=== PATIENT | male | born 1955 | race Caucasian/White ===

== ENCOUNTER 2019-05-10 09:47 | Emergency (ER) | payer OTHER ==
[2019-05-10] MEDS ORDERED: ONDANSETRON 4 MG/2 ML VIAL ONE (10:45)
[2019-05-10] MEDS ORDERED: NA CHLORIDE 0.9% 1,000 ML ONE (10:45)
[2019-05-10] MEDS ORDERED: MORPHINE 4 MG/ML SYR ONE ×2 (10:45→12:33)
[2019-05-10 11:15] LABS: Absolute Lymphocytes (CBC) 1.1 K/uL (0.7-4.9); Absolute Neutrophil 8.6 K/uL (1.8-8.0); Basophils % 0.2 % (0-1.3); Eosinophils % 0.9 % (0-4.4); Hematocrit 46.2 % (39.6-49.0); Lymphocytes % 10.4 % (15.3-44.8); MPV 9.4 fL (7.6-11.3); Monocytes % 8.8 % (3.3-12.3); RBC Red Blood Cell Count 5.35 M/uL (4.33-5.43)
[2019-05-10 11:35] LABS: Albumin 4.4 g/dL (3.4-5.0); Bilirubin Direct 0.1 mg/dL (0-0.2); Bilirubin Total 0.7 mg/dL (0.2-1.0); Magnesium 2.1 mg/dL (1.8-2.4); Potassium 3.6 mmol/L (3.5-5.1); Protein, Total 7.9 g/dL (6.4-8.2)
[2019-05-10 11:56] LABS: Urine Bacteria 20-50 /HPF (NONE SEEN); Urine RBC TNTC /HPF (NONE SEEN)
[2019-05-10 11:57] LABS: Urine Culture Reflex Order REFLEXED
[2019-05-10 11:58] LABS: Urine Blood 3+ (NEG); Urine Glucose TRACE (NEG); Urine Protein 2+ (NEG)
--- NOTE | 2019-05-10 12:23 | RAD REPORT ---
EXAM DESCRIPTION: CT - Abdomen Pelvis W Contrast - 05/10/2019 12:01 pm CLINICAL HISTORY: Abdominal pain. COMPARISON: None. TECHNIQUE: Computed axial tomography of the abdomen and pelvis was obtained. 100 cc Isovue-300 is ad ministered intravenously. Oral contrast was given. All CT scans are performed using dose optimization technique as appropriate and may include automated exposure control or mA/KV adjustment according to patient size. FINDINGS: Fatty liver. Hepatic cysts measuring up to several centimeters Spleen, pancreas, and adrenals appear unremarkable. Renal cysts. Multiple, bilateral renal calculi. 6 millimeter calculus within the left renal pelvis. 5 millimeter calculus left ureteral vesicle junction. Hounsfield unit 624. Mild to moderate left hydro nephrosis and hydroureter. Delay in concentration of contrast within the left kidney. The appendix is normal caliber. There is no evidence of diverticulitis Internal radiation beams prostate IMPRESSION: 5 millimeter calculus left ureterovesical junction resulting in mild to moderate left hy dronephrosis. 6 millimeter nonobstructing calculus left renal pelvis
--- NOTE | 2019-05-10 13:01 | EDPHYS ---
Physician Documentation [facility] Name: Winston Castro Age: 63 yrs Sex: Male : 1955 Arrival Date: 05/10/2019 Time: 09:52 Bed 4 Private MD: Pradip Gaxiola H ED Physician Taye Love HPI: 05/10 10:25 This 63 yrs old Male presents to ER via Ambulatory with complaints of cp Abdominal Pain. 10:25 The patient presents with abdominal pain in the left lower quadrant. Onset: The cp symptoms/episode began/occurred this morning. The symptoms do not radiate. Associated signs and symptoms: Pertinent positives: constipation, nausea, Pertinent negatives: blood in stools, chest pain, diarrhea, dysuria, testicular pain, vomiting. The symptoms are described as constant. Modifying factors: the symptoms are aggravated by pressure. Severity of pain: in the emergency department the pain is a 5 / 10. Historical: - Allergies: 10:22 No Known Allergies; ch - Home Meds: 10:22 valsartan oral oral [Active]; Tricor Oral [Active]; Metoprolol Tartrate Oral [Active]; ch tadalafil oral oral [Active]; Lorraine 180 mg Oral tab 1 tab once daily [Active]; aspirin 81 mg Oral chew 1 tab once daily [Active]; amlodipine oral [Active]; Niaspan Oral [Active]; pravastatin oral oral [Active]; - PMHx: 10:22 Hyperlipidemia; Hypertension; Diverticulitis; colon polyps; prostate cancer- treated ch with extreemly high does radiation in 2016; rectal bleeding/intestinal sloughing; - PSHx: 10:22 Tonsillectomy; cardiac cath; neck, ankle, bone spurr in foot, lasik; Cholecystectomy; - Immunization history:: Adult Immunizations up to date. - Social history:: Smoking status: Patient/guardian denies using tobacco, Patient uses alcohol, weekly. - Ebola Screening: : Patient negative for fever greater than or equal to 101.5 degrees Fahrenheit, and additional compatible Ebola Virus Disease symptoms Patient denies exposure to infectious person Patient denies travel to an Ebola-affected area in the 21 days before illness onset No symptoms or risks identified at this time. ROS: 10:30 Constitutional: Negative for body aches, chills, fever, poor PO intake. cp 10:30 Eyes: Negative for injury, pain, redness, and discharge. cp 10:30 ENT: Negative for drainage from ear(s), ear pain, sore throat, difficulty swallowing, difficulty handling secretions. 10:30 Cardiovascular: Negative for chest pain, edema, palpitations. 10:30 Respiratory: Negative for cough, shortness of breath, wheezing. 10:30 Abdomen/GI: Positive for abdominal pain, nausea, constipation, Negative for vomiting, diarrhea, black/tarry stool, rectal bleeding. 10:30 Back: Negative for pain at rest, pain with movement, radiated pain. 10:30 : Positive for small amounts, Negative for burning with urination, testicular pain 10:30 Skin: Negative for cellulitis, rash. 10:30 Neuro: Negative for altered mental status, headache, weakness. 10:30 All other systems are negative. Exam: 10:35 Constitutional: The patient appears in no acute distress, alert, awake, non-toxic, well cp developed, well nourished. 10:35 Head/Face: Normocephalic, atraumatic. cp 10:35 Eyes: Periorbital structures: appear normal, Conjunctiva: normal, no exudate, no injection, Sclera: no appreciated abnormality, Lids and lashes: appear normal, bilaterally. 10:35 ENT: External ear(s): are unremarkable, Nose: is normal, Mouth: is normal, Posterior pharynx: is normal, airway is patent, no erythema, no exudate. 10:35 Chest/axilla: Inspection: normal, Palpation: is normal, no crepitus, no tenderness. 10:35 Cardiovascular: Rate: normal, Rhythm: regular, Edema: is not appreciated, JVD: is not appreciated. 10:35 Respiratory: the patient does not display signs of respiratory distress, Respirations: normal, no use of accessory muscles, no retractions, no splinting, no tachypnea, labored breathing, is not present, Breath sounds: are clear throughout, no decreased breath sounds, no stridor, no wheezing. 10:35 Abdomen/GI: Inspection: abdomen appears normal, Bowel sounds: active, all quadrants, Palpation: soft, in all quadrants, mild abdominal tenderness, in the left lower quadrant, rebound tenderness, is not appreciated, voluntary guarding, is not appreciated, involuntary guarding, is not appreciated. 10:35 Back: pain, is absent, ROM is normal. Vital Signs: 10:22 BP 169 / 90; Pulse 68; Resp 18; Temp 98.5; Pulse Ox 97% on R/A; Weight 111.13 kg; ch Height 5 ft. 11 in. (180.34 cm); Pain 6/10; 11:00 BP 158 / 82; Pulse 60; Resp 16; Temp 98.3; Pulse Ox 99% on R/A; Pain 4/10; ch 12:10 BP 157 / 88; Pulse 82; Resp 16; Temp 99.6; Pulse Ox 97% on R/A; Pain 6/10; ch 13:43 BP 143 / 78; Pulse 74; Resp 18; Pulse Ox 99% on R/A; ph 14:15 BP 131 / 79; Pulse 71; Resp 18; Temp 98.4; Pulse Ox 99% on R/A; Pain 2/10; ph 10:22 Body Mass Index 34.17 (111.13 kg, 180.34 cm) ch MDM: 10:09 Patient medically screened. cp 11:00 Differential diagnosis: bowel obstruction, diverticulitis, non-specific abd pain, cp Ureterolithiasis, urinary tract infection. 13:00 Data reviewed: vital signs, nurses notes, lab test result(s), radiologic studies, CT cp scan. 13:00 Counseling: I had a detailed discussion with the patient and/or guardian regarding: the cp historical points, exam findings, and any diagnostic results supporting the discharge/admit diagnosis, lab results, radiology results, to return to the emergency department if symptoms worsen or persist or if there are any questions or concerns that arise at home. Response to treatment: the patient's symptoms have markedly improved after treatment. 05/10 10:19 Order name: Basic Metabolic Panel cp 05/10 10:19 Order name: CBC with Diff cp 05/10 10:19 Order name: Creatinine for Radiology; Complete Time: 12:28 cp 05/10 10:19 Order name: Hepatic Function; Complete Time: 12:28 cp 05/10 12:28 Interpretation: Normal except: AST 42; ALT 79. cp 05/10 10:19 Order name: Lipase; Complete Time: 12:28 cp 05/10 10:19 Order name: Urine Microscopic Only; Complete Time: 12:28 cp 05/10 12:28 Interpretation: Normal except: UWBC 5-10; URBC TNTC; UBACT 20-50; SQEPI 5-10. cp 05/10 10:19 Order name: CT Abd/Pelvis - PO and IV Contrast; Complete Time: 12:28 cp 05/10 10:19 Order name: Magnesium; Complete Time: 12:28 cp 05/10 10:20 Order name: Basic Metabolic Panel; Complete Time: 12:28 EDMS 05/10 12:28 Interpretation: Normal except: CL 108; GLUC 138; GFR 60. cp 05/10 10:20 Order name: CBC with Automated Diff; Complete Time: 11:22 EDMS 05/10 11:22 Interpretation: Normal except: MCV 86.5; URSULA% 79.7; LYM% 10.4; NEUT A 8.6. cp 05/10 10:44 Order name: Urine Dipstick--Ancillary (enter results); Complete Time: 12:28 ms 05/10 12:00 Order name: Urine Culture EDND 05/10 10:19 Order name: IV Saline Lock; Complete Time: 12:03 cp 05/10 10:19 Order name: Labs collected and sent; Complete Time: 12:03 cp 05/10 10:19 Order name: Bladder Scanner: pre and post void; Complete Time: 12:03 cp 05/10 10:19 Order name: Urine Dipstick-Ancillary (obtain specimen); Complete Time: 10:45 cp 05/10 12:30 Order name: Urine Strainer; Complete Time: 13:01 cp Administered Medications: 11:13 Drug: Zofran 4 mg Route: IVP; Site: left antecubital; hb 12:01 Follow up: Response: No adverse reaction; Marked relief of symptoms ch 11:13 Drug: NS 0.9% 500 ml Route: IV; Rate: bolus; Site: left antecubital; hb 12:00 Follow up: IV Status: Completed infusion; IV Intake: 500ml ch 11:13 Drug: morphine 4 mg Route: IVP; Site: left antecubital; hb 12:00 Follow up: Response: No adverse reaction; Marked relief of symptoms ch 11:50 Drug: NS 0.9% 1000 ml Route: IV; Rate: 125 ml/hr; Site: left antecubital; ch 14:15 Follow up: Response: No adverse reaction; IV Status: Completed infusion ph 13:20 Drug: NS 0.9% 500 ml Route: IV; Rate: bolus; Site: left antecubital; ph 14:09 Follow up: Response: No adverse reaction; IV Status: Completed infusion; IV Intake: ph 500ml 13:20 Drug: Rocephin 1 grams Route: IV; Rate: bolus; Site: left antecubital; ph 13:29 Follow up: Response: No adverse reaction; IV Status: Completed infusion ph 13:25 Drug: Magnesium Sulfate 1 grams Route: IVPB; Infused Over: 30 mins; Site: left ph antecubital; 14:13 Follow up: Response: No adverse reaction; IV Status: Completed infusion ph 13:27 Drug: Flomax 0.4 mg Route: PO; ph 13:30 Follow up: Response: No adverse reaction ph 14:09 Drug: TORadol 30 mg Route: IVP; Site: left antecubital; ph 14:13 Follow up: Response: No adverse reaction ph Disposition: 17:46 Co-signature as Attending Physician, Taye Love MD I agree with the assessment and kdr plan of care. Disposition: 05/10/19 13:01 Discharged to Home. Impression: Calculus of kidney and ureter - left. - Condition is Stable. - Discharge Instructions: Kidney Stones, Dietary Guidelines to Help Prevent Kidney Stones. - Prescriptions for Tylenol- Codeine #3 300-30 mg Oral Tablet - take 2 tablets by ORAL route every 6 hours As needed; 20 tablet. Zofran 4 mg Oral Tablet - take 1 tablet by ORAL route every 12 hours As needed; 20 tablet. Flomax 0.4 mg Oral Capsule, Sust. Release 24 hr - take 1 capsule by ORAL route once daily 1/2 hour following the same meal each day; 5 capsule. Cipro 500 mg Oral Tablet - take 1 tablet by ORAL route every 12 hours for 7 days; 14 tablet. - Medication Reconciliation Form, Thank You Letter, Antibiotic Education, Prescription Opioid Use form. - Follow up: Jan Bonilla MD; When: 2 - 3 days; Reason: pain continues. - Problem is new. - Symptoms have improved. Signatures: Dispatcher [employer] Laine Ott RN RN ch Rittger, Kevin, MD MD [facility] Marisela Serrano RN RN ph Rob Cooper PA PA cp Renita Dubois RN RN Corrections: (The following items were deleted from the chart) 14:17 13:01 05/10/2019 13:01 Discharged to Home. Impression: Calculus of kidney and ureter - ph left. Condition is Stable. Forms are Medication Reconciliation Form, Thank You Letter, Antibiotic Education, Prescription Opioid Use. Follow up: Jan Bonilla; When: 2 - 3 days; Reason: pain continues. Problem is new. Symptoms have improved. cp
--- NOTE | 2019-05-10 13:01 | ER ---
Nurse's Notes [facility] Name: Winston Castro Age: 63 yrs Sex: Male : 1955 Arrival Date: 05/10/2019 Time: 09:52 Bed 4 Private MD: Pradip Gaxiola H Diagnosis: Calculus of kidney and ureter-left Presentation: 05/10 10:14 Presenting complaint: Patient states: pt c/o LLQ abdominal pain since 429 today, ch increasing in pain, with nausea. hx of diverticuli, and prostate cancer. states he frequently has rectal/intestinal lining sloughing and blood from his rectum due to his cancer treatment in 2015. Transition of care: patient was not received from another setting of care. Onset of symptoms was May 10, 2019 at 04:30. Risk Assessment: Do you want to hurt yourself or someone else? Patient reports no desire to harm self or others. Initial Sepsis Screen: Does the patient meet any 2 criteria? No. Patient's initial sepsis screen is negative. Does the patient have a suspected source of infection? No. Patient's initial sepsis screen is negative. Care prior to arrival: Medication(s) given: doculax. 10:14 Method Of Arrival: Ambulatory 10:14 Acuity: ERNST 3 ch Triage Assessment: 10:22 General: Appears in no apparent distress. comfortable, Behavior is calm, cooperative, ch appropriate for age. Pain: Complains of pain in left lower quadrant and pelvis Pain currently is 6 out of 10 on a pain scale. Pain began gradually. Neuro: No deficits noted. Respiratory: Airway is patent Respiratory effort is even, unlabored, Breath sounds are clear bilaterally. Historical: - Allergies: 10:22 No Known Allergies; - Home Meds: 10:22 valsartan oral oral [Active]; Tricor Oral [Active]; Metoprolol Tartrate Oral [Active]; ch tadalafil oral oral [Active]; Lorraine 180 mg Oral tab 1 tab once daily [Active]; aspirin 81 mg Oral chew 1 tab once daily [Active]; amlodipine oral [Active]; Niaspan Oral [Active]; pravastatin oral oral [Active]; - PMHx: 10:22 Hyperlipidemia; Hypertension; Diverticulitis; colon polyps; prostate cancer- treated ch with extreemly high does radiation in 2016; rectal bleeding/intestinal sloughing; - PSHx: 10:22 Tonsillectomy; cardiac cath; neck, ankle, bone spurr in foot, lasik; Cholecystectomy; ch - Immunization history:: Adult Immunizations up to date. - Social history:: Smoking status: Patient/guardian denies using tobacco, Patient uses alcohol, weekly. - Ebola Screening: : Patient negative for fever greater than or equal to 101.5 degrees Fahrenheit, and additional compatible Ebola Virus Disease symptoms Patient denies exposure to infectious person Patient denies travel to an Ebola-affected area in the 21 days before illness onset No symptoms or risks identified at this time. Screenin:20 Abuse screen: Denies threats or abuse. Denies injuries from another. Nutritional ch screening: No deficits noted. Tuberculosis screening: No symptoms or risk factors identified. Fall Risk None identified. Assessment: 10:20 GI: Bowel sounds present X 4 quads. Abd is soft X 4 quads Abdomen is tender to ch palpation in left lower quadrant Reports nausea. : Urine is blood tinged, Reports urgency, urinary frequency. 10:20 Neuro: No deficits noted. Respiratory: Airway is patent Respiratory effort is even, ch unlabored. Derm: Skin is pale. 10:45 Reassessment: Patient appears in no apparent distress at this time. pt finished ch contrast at 1045, notified ct. 11:06 Reassessment: Patient appears in no apparent distress at this time. pt oob to restroom ch to urinate three times. states he feels pressure but cannot tell if he needs to pee or poop. 11:59 Reassessment: Patient appears in no apparent distress at this time. Patient and/or ch family updated on plan of care and expected duration. Pain level reassessed. Patient is alert, oriented x 3, equal unlabored respirations, skin warm/dry/pink. pt transported to ct now. awaiting pt return Patient states feeling better. 12:21 Reassessment: Patient appears in no apparent distress at this time. Patient and/or ch family updated on plan of care and expected duration. Pain level reassessed. Patient is alert, oriented x 3, equal unlabored respirations, skin warm/dry/pink. pt c/o increase in pain, Rob notified, pt medicated per order. awaiting results now. 13:30 Reassessment: Patient appears in no apparent distress at this time. Patient and/or ph family updated on plan of care and expected duration. Pain level reassessed. Patient is alert, oriented x 3, equal unlabored respirations, skin warm/dry/pink. Pt resting comfortably, rates pain 2/10 and denies nausea at this time, d/c pending completion of IV medication. 14:13 Reassessment: Patient appears in no apparent distress at this time. Patient and/or ph family updated on plan of care and expected duration. Pain level reassessed. Patient is alert, oriented x 3, equal unlabored respirations, skin warm/dry/pink. Pt rates pain 1/10 and denies nausea, instructed on use of urine strainer and d/c home w/ SO. Vital Signs: 10:22 BP 169 / 90; Pulse 68; Resp 18; Temp 98.5; Pulse Ox 97% on R/A; Weight 111.13 kg; ch Height 5 ft. 11 in. (180.34 cm); Pain 6/10; 11:00 BP 158 / 82; Pulse 60; Resp 16; Temp 98.3; Pulse Ox 99% on R/A; Pain 4/10; ch 12:10 BP 157 / 88; Pulse 82; Resp 16; Temp 99.6; Pulse Ox 97% on R/A; Pain 6/10; ch 13:43 BP 143 / 78; Pulse 74; Resp 18; Pulse Ox 99% on R/A; ph 14:15 BP 131 / 79; Pulse 71; Resp 18; Temp 98.4; Pulse Ox 99% on R/A; Pain 2/10; ph 10:22 Body Mass Index 34.17 (111.13 kg, 180.34 cm) ED Course: 09:52 Patient arrived in ED. mr 09:52 Pradip Gaxiola DO is Private Physician. mr 10:00 Laine Roberts, JUAN is Primary Nurse. ch 10:09 Rob Cooper PA is PHCP. cp 10:09 Taye Love MD is Attending Physician. cp 10:17 Triage completed. ch 10:20 No provider procedures requiring assistance completed. ch 10:22 Arm band placed on left wrist. Patient placed in an exam room, on a stretcher, on pulse oximetry. 10:30 Patient has correct armband on for positive identification. Placed in gown. Bed in low ch position. Call light in reach. Side rails up X 1. Adult w/ patient. Pulse ox on. NIBP on. 10:30 Bladder scan completed. 58. dh3 10:40 Missed attempt(s): 22 gauge in right upper arm. Bleeding controlled, band aid applied, ch catheter tip intact. 10:43 Urine collected: clean catch specimen, blood tinged. dh3 10:50 Bladder scan completed. 28mL. ch 11:12 Inserted saline lock: 22 gauge in left antecubital area, using aseptic technique. hb 12:03 CT Abd/Pelvis - PO and IV Contrast In Process Unspecified. EDMS 12:03 Basic Metabolic Panel Sent. ch 12:03 CBC with Diff Sent. ch 12:03 CT Abd/Pelvis - PO and IV Contrast Sent. ch 12:04 Urine Culture Sent. ch 13:00 Jan Bonilla MD is Referral Physician. cp 14:17 IV discontinued, intact, bleeding controlled, No redness/swelling at site. Pressure ph dressing applied. Administered Medications: 11:13 Drug: Zofran 4 mg Route: IVP; Site: left antecubital; hb 12:01 Follow up: Response: No adverse reaction; Marked relief of symptoms ch 11:13 Drug: NS 0.9% 500 ml Route: IV; Rate: bolus; Site: left antecubital; hb 12:00 Follow up: IV Status: Completed infusion; IV Intake: 500ml ch 11:13 Drug: morphine 4 mg Route: IVP; Site: left antecubital; hb 12:00 Follow up: Response: No adverse reaction; Marked relief of symptoms ch 11:50 Drug: NS 0.9% 1000 ml Route: IV; Rate: 125 ml/hr; Site: left antecubital; ch 14:15 Follow up: Response: No adverse reaction; IV Status: Completed infusion ph 13:20 Drug: NS 0.9% 500 ml Route: IV; Rate: bolus; Site: left antecubital; ph 14:09 Follow up: Response: No adverse reaction; IV Status: Completed infusion; IV Intake: ph 500ml 13:20 Drug: Rocephin 1 grams Route: IV; Rate: bolus; Site: left antecubital; ph 13:29 Follow up: Response: No adverse reaction; IV Status: Completed infusion ph 13:25 Drug: Magnesium Sulfate 1 grams Route: IVPB; Infused Over: 30 mins; Site: left ph antecubital; 14:13 Follow up: Response: No adverse reaction; IV Status: Completed infusion ph 13:27 Drug: Flomax 0.4 mg Route: PO; ph 13:30 Follow up: Response: No adverse reaction ph 14:09 Drug: TORadol 30 mg Route: IVP; Site: left antecubital; ph 14:13 Follow up: Response: No adverse reaction ph Intake: 12:00 IV: 500ml; Total: 500ml. ch 14:09 IV: 500ml; Total: 1000ml. ph Outcome: 13:01 Discharge ordered by MD. cp 14:16 Discharged to home ambulatory, with significant other. ph 14:16 Condition: good 14:16 Discharge instructions given to patient, significant other, Instructed on discharge instructions, follow up and referral plans. medication usage, urine strainer, Demonstrated understanding of instructions, follow-up care, medications, Prescriptions given X 4. 14:17 Patient left the ED. ph Signatures: Dispatcher [employer] EDLaine Arizmendi RN JUAN Howard, Lindsay Marisela Serrano RN RN ph Page, Corey, Renita Mckinnon cp, RN RN Ericka Springer [facility]
[2019-05-10] MEDS ORDERED: KETOROLAC 30 MG/ML INJ ONE (13:20)
[2019-05-10] MEDS ORDERED: TAMSULOSIN 0.4 MG SR CAP ONE (13:20)
[2019-05-10] MEDS ORDERED: MAGNESIUM SULFATE 1 gm IVPB 1 GM/100 ML BAG IV ONE (13:21)
[2019-05-10] MEDS ORDERED: CEFTRIAXONE/SWI 1gm 1 GM/10 ML SYR ONE (13:21)
[2019-05-10 14:42] VITALS: O2SAT 99
[2019-05-10 14:43] VITALS: BP 131/79; TEMP 98.4
== END 2019-05-10 14:17 | disposition home or self-care (01) ==
LOC: ER 09:47
DX: N20.2 Calculus of kidney with calculus of ureter (principal); I10 Essential (primary) hypertension; E78.5 Hyperlipidemia, unspecified; Z79.82 Long term (current) use of aspirin; Z85.46 Personal history of malignant neoplasm of prostate
CPT/HCPCS: 36415; 74177; 80048; 80076; 81003; 81015; 83690; 83735; 85025; 87086; 87088; 96361; 96365; 96375; 99284; J0696; J2405; J3475; J7030; Q9967

== ENCOUNTER 2020-01-01 06:17 | Day surgery (SDC) | payer OTHER ==
[2020-01-01] MEDS ORDERED: Ringers Lactate 1,000 ML IV ONE (06:38)
[2020-01-01] MEDS ORDERED: propofoL 200 MG/20 ML VIAL IV ONE (07:17)
[2020-01-01] MEDS ORDERED: LIDOCAINE 1% MPF 5 ML VIAL ONE (07:17)
[2020-01-01] MEDS ORDERED: EPINEPHRINE/PF 1 MG/ML AMP ONE (07:31)
[2020-01-01 08:37] VITALS: BP 156/83; TEMP 97.6; O2SAT 95
--- NOTE | 2020-01-01 10:26 | ENDO RPT ---
[address], [address] COLONOSCOPY PROCEDURE REPORT EXAM DATE: 01/01/2020 PATIENT NAME: Winston Castro MR #: [id number] BIRTHDATE: 1955 ATTENDING: Drew Salvador MD STATUS: outpatient CAVING GUIDE: Vida Hewitt, Flaquita Howard RN, Ruben Fernandez CST, and Ysabel Price RN INDICATIONS: The patient is a 64 yr old Male here for a colonoscopy due to unexplained chronic diarrhea, colitis,, and CHANGE IN BOWEL HABITS PROCEDURE PERFORMED: Colonoscopy with biopsy - cold polypectomy MEDICATIONS: Per Anesthesia. ESTIMATED BLOOD LOSS: None CONSENT: The patient understands the risks and benefits of the procedure and understands that these risks include, but are not limited to: sedation, allergic reaction, infection, perforation and/or bleeding. Alternative means of evaluation and treatment include, among others: physical exam, x-rays, and/or surgical intervention. The patient elects to proceed with this endoscopic procedure. DESCRIPTION OF PROCEDURE: During intra-op preparation period all mechanical medical equipment was checked for proper function. Hand hygiene and appropriate measures for infection prevention was taken. Procedure, possible complications, alternatives including, but not limited to possibility of bleeding, perforation, tear, infection, sepsis, need for surgery, need for blood transfusion, were explained to the patient. After the risks, benefits and alternatives of the procedure were thoroughly explained, Informed consent was verified, confirmed and timeout was successfully executed by the treatment team. The patient was placed in the left lateral position. A digital rectal exam was performed and revealed external hemorrhoids. After appropriate level of anesthesia, the scope was passed. The EC-[id number] ([id number]) and [id number] ([id number]) endoscope was introduced through the anus and advanced to the cecum, which was identified by transillumination from the light source, the appendix, and the ileocecal valve. The quality of the prep was fair. The instrument was then slowly withdrawn as the colon was fully examined. Scope withdrawal time was . COLON FINDINGS: Multiple sessile polyps were found less than 0.5 cm in sixe at approximately 65cm and 35cm from anal verge. Retroflexed views revealed no abnormalities. The scope was then completely withdrawn from the patient and the procedure terminated. ADVERSE EVENTS: There were no complications. IMPRESSIONS: 1. Multiple sessile polyps were found; polypectomy was performed in a piecemeal fashion using hot forceps 2. Proctitis 3. Left sided colitis 4. Diverticulosis RECOMMENDATIONS: 1. follow-up: office 1 week(s) 2. await biopsy results 3. no seeds in diet RECALL: for Colonoscopy, pending biopsy results. Drew Salvador MD eSigned: Drew Salvador MD 01/01/2020 10:26 AM cc: Alyssa Gaxiola M.D. CPT CODES: ICD9 CODES: PATIENT NAME: Winston Castro MR#: [id number]
== END 2020-01-01 08:40 | disposition home or self-care (01) ==
LOC: OR 06:17
PROVIDERS: ATTEND Surgery
PROC: 0DBE8ZX Excision of Large Intestine, Via Natural or Artificial Opening Endoscopic, Diagnostic (ICD-10-PCS; principal; 2020-01-01 07:30)
DX: D12.6 Benign neoplasm of colon, unspecified (principal); K52.9 Noninfective gastroenteritis and colitis, unspecified; K57.90 Diverticulosis of intestine, part unspecified, without perforation or abscess without bleeding; K62.89 Other specified diseases of anus and rectum; I10 Essential (primary) hypertension; G47.33 Obstructive sleep apnea (adult) (pediatric); E78.00 Pure hypercholesterolemia, unspecified; Z85.46 Personal history of malignant neoplasm of prostate; Z90.49 Acquired absence of other specified parts of digestive tract; Z80.8 Family history of malignant neoplasm of other organs or systems; Z82.49 Family history of ischemic heart disease and other diseases of the circulatory system
CPT/HCPCS: 45384; 88305; J2704; J7120; J0171

== ENCOUNTER 2021-05-27 11:08 | Emergency (ER) | payer OTHER ==
[2021-05-27 12:08] LABS: Absolute Lymphocytes (CBC) 1.6 K/uL (0.7-4.9); Basophils % 0.6 % (0-1.3); Hematocrit 40.2 % (39.6-49.0); Lymphocytes % 18.3 % (15.3-44.8); MPV 8.8 fL (7.6-11.3); RBC Red Blood Cell Count 4.68 M/uL (4.33-5.43)
[2021-05-27] MEDS ORDERED: NA CHLORIDE 0.9% 1,000 ML ONE (12:11)
[2021-05-27] MEDS ORDERED: ONDANSETRON 4 MG/2 ML VIAL ONE (12:11)
[2021-05-27] MEDS ORDERED: TAMSULOSIN 0.4 MG SR CAP ONE (12:11)
[2021-05-27] MEDS ORDERED: MORPHINE 4 MG/ML SYR ONE (12:11)
--- NOTE | 2021-05-27 12:12 | RAD REPORT ---
EXAM DESCRIPTION: CT - Stone Protocol - 05/27/2021 12:02 pm CLINICAL HISTORY: Flank pain. right flank pain COMPARISON: Abdomen Pelvis W Contrast dated 05/10/2019 TECHNIQUE: Axial images were obtained without oral or IV contrast. Lack of contrast limits solid org an and vascular assessment. The [id number] spans the entirety of the system partially obscuring uppermost abdomen and lung bases. Coronal reformatted images were obtained and reviewed. All CT scans are performed using dose optimization technique as appropriate and may include automated exposure control or mA/KV adjustment according to patient size. FINDINGS: The lower lung koenig are clear. Multiple low-density liver lesions are present likely cysts. A fatty liver pattern is seen. Cholecyst ectomy clips are present.The spleen is normal in size. The pancreas and adrenal glands are normal. No pathologic lymphadenopathy in the abdomen or pelvis. Bilateral nephrolithiasis is present, largest on the left in the posterior midpole calyx measuring 12 mm. There is 4 cm cyst noted anterior aspect right kidney. Mild right-sided hydronephrosis is present with a 5 mm stone at the right UVJ. Mild left-sided hydron ephrosis is present with 8 mm stone in the proximal left ureter. No bowel obstruction, free air, free fluid or abscess. The appendix is not identified as a discrete s tructure, however, no secondary findings of appendicitis are identified. Sigmoid diverticulosis witho ut diverticulitis. No significant bony abnormality. IMPRESSION: 5 mm calculus is present at the right UVJ resulting in mild right hydronephrosis. 8 mm calculus is present proximal left ureter resulting in mild left hydronephrosis. Bilateral caliceal nephrolithiasis is present.
[2021-05-27 12:23] LABS: Albumin 3.7 g/dL (3.4-5.0); Bilirubin Direct 0.1 mg/dL (0-0.2); Bilirubin Total 0.4 mg/dL (0.2-1.0); Protein, Total 7.3 g/dL (6.4-8.2)
[2021-05-27 12:34] LABS: Urine Blood 3+ (Negative); Urine Glucose Negative (Negative); Urine Protein 1+ (Negative); Urine Specific Gravity 1.025 (1.005-1.030)
--- NOTE | 2021-05-27 14:09 | EDPHYS ---
Physician Documentation [facility] Name: Winston Castro Age: 65 yrs Sex: Male : 1955 Arrival Date: 05/27/2021 Time: 11:09 Bed 2 Private MD: Pradip Gaxiola H ED Physician Rob Ackerman HPI: 05/27 11:38 This 65 yrs old Male presents to ER via Ambulatory with complaints of Flank jmm Pain, Abdominal Pain - RLQ. 11:38 The patient complains of pain in the right flank. Onset: The symptoms/episode jmm began/occurred acutely, this morning. Modifying factors: The symptoms are alleviated by nothing. the symptoms are aggravated by nothing. This is a 65 year old male with a history of hlp, htn, that presents to the ED with complaints of right flank pain and inability to urinate beginning today. Denies fever, vomiting, diarrhea. . Historical: - Allergies: 11:23 No Known Allergies; ph - PMHx: 11:23 Colon Polyps; Diverticulitis; Hyperlipidemia; Hypertension; prostate cancer- treated ph with extreemly high does radiation in 2016; rectal bleeding/intestinal sloughing; - Immunization history:: Client reports receiving the 2nd dose of the Covid vaccine. - Social history:: Smoking status: Patient denies any tobacco usage or history of. ROS: 11:38 Constitutional: Negative for fever, chills, and weight loss, Cardiovascular: Negative jmm for chest pain, palpitations, and edema, Respiratory: Negative for shortness of breath, cough, wheezing, and pleuritic chest pain. 11:38 Abdomen/GI: Positive for abdominal pain. 11:38 Back: Positive for flank pain, on the right. 11:38 All other systems are negative. Exam: 11:38 Constitutional: This is a well developed, well nourished patient who is awake, alert, jmm and in no acute distress. Head/Face: atraumatic. Eyes: EOMI, no conjunctival erythema appreciated ENT: Moist Mucus Membranes Neck: Trachea midline, Supple Chest/axilla: Normal chest wall appearance and motion. Cardiovascular: Regular rate and rhythm. No edema appreciated Respiratory: Normal respirations, no respiratory distress appreciated Abdomen/GI: Non distended, soft 11:38 MS/ Extremity: Moves all extremities, no obvious deformities appreciated, no edema noted to the lower extremities Neuro: Awake and alert, normal gait Psych: Behavior is normal, Mood is normal, Patient is cooperative and pleasant 11:38 Back: CVA tenderness, that is moderate, is noted on the right. Vital Signs: 11:21 BP 165 / 93; Pulse 70; Resp 18; Temp 97.2; Pulse Ox 97% on R/A; Weight 113.4 kg; Height ph 5 ft. 11 in. (180.34 cm); Pain 8/10; 12:31 BP 160 / 91; Pulse 81; Resp 17; Pulse Ox 97% on R/A; tw2 13:00 BP 141 / 82; Pulse 77; Resp 20; Pulse Ox 97% on R/A; kg 13:30 BP 147 / 77; Pulse 75; Resp 18; Pulse Ox 96% on R/A; kg 14:00 BP 152 / 88; Pulse 79; Resp 20; Pulse Ox 96% ; kg 14:30 BP 136 / 68; Pulse 60; Resp 20; Pulse Ox 97% on R/A; kg 15:00 BP 143 / 87; Pulse 60; Resp 20; Pulse Ox 97% ; kg 15:30 BP 133 / 89; Pulse 78; Resp 20; Pulse Ox 96% on R/A; kg 11:21 Body Mass Index 34.87 (113.40 kg, 180.34 cm) ph MDM: 11:38 Patient medically screened. [facility] 12:35 Data reviewed: vital signs, nurses notes. Counseling: I had a detailed discussion with [facility] the patient and/or guardian regarding: the historical points, exam findings, and any diagnostic results supporting the discharge/admit diagnosis, lab results, radiology results. ED course: Family/patient has a preference for [facility]. . 13:50 ED course: I discussed the patient with Dr. Bansal whom accepted the patient to [facility] 05/27 11:38 Order name: Basic Metabolic Panel; Complete Time: 12:23 [facility] 05/27 11:38 Order name: CBC with Diff; Complete Time: 12:09 [facility] 05/27 11:38 Order name: Hepatic Function; Complete Time: 12:23 [facility] 05/27 11:38 Order name: Lipase; Complete Time: 12:23 [facility] 05/27 12:34 Order name: Urine Dipstick-Ancillary; Complete Time: 12:34 [facility]LA 05/27 11:38 Order name: IV Saline Lock; Complete Time: 12:35 [facility] 05/27 11:38 Order name: Labs collected and sent; Complete Time: 12:35 [facility] 05/27 11:41 Order name: CT Stone Protocol; Complete Time: 12:13 [facility] 05/27 15:38 Order name: SARS-COV-2 RT PCR; Complete Time: 15:56 [facility] 05/27 11:38 Order name: Urine Dipstick-Ancillary (obtain specimen); Complete Time: 12:35 [facility] 05/27 11:46 Order name: Morgan; Complete Time: 12:35 [facility] 05/27 13:49 Order name: NPO [facility] Administered Medications: 12:20 Drug: NS 0.9% 1000 ml Route: IV; Rate: 1 bolus; Site: left antecubital; kg 16:08 Follow up: IV Status: Completed infusion; IV Intake: 1000ml kg 12:20 Drug: Flomax (tamsulosin) 0.4 mg Route: PO; kg 16:08 Follow up: Response: No adverse reaction; Pain is decreased kg 12:20 Drug: Zofran (Ondansetron) 4 mg Route: IVP; Site: left antecubital; kg 16:08 Follow up: Response: No adverse reaction kg 12:34 Drug: morphine 4 mg Route: IVP; Site: left antecubital; kg 16:08 Follow up: Response: No adverse reaction; Pain is decreased kg Disposition: 05/28 07:32 Co-signature as Attending Physician, Rob Ackerman MD I agree with the assessment and doug plan of care. Disposition Summary: 05/27/21 14:08 Transfer Ordered Transfer Location: [facility] Reason: Higher level of care jmm Condition: Stable jmm Problem: new jmm Symptoms: are unchanged jm Accepting Physician: Dr. Bansal(05/27/21 16:21) tw2 Diagnosis - Calculus of ureter jmm - Other acute kidney failure jmm Forms: - Medication Reconciliation Form jmm - SBAR form jmm Signatures: Dispatcher [employer] Rob Carl MD MD cha Mickail, Joel, PA PA jm Marisela Serrano RN RN Tamara Lopez RN RN tw2 Jad, Nathaly, RN RN kg Corrections: (The following items were deleted from the chart) 05/27 14:46 14:08 CORONAVIRUS+MariannKRISTIEZ auprva. EDMS EDMS 16:21 14:08 Dr. Nimisha chambers tw2
--- NOTE | 2021-05-27 14:09 | ER ---
Nurse's Notes [facility] Name: Winston Castro Age: 65 yrs Sex: Male : 1955 Arrival Date: 05/27/2021 Time: 11:09 Bed 2 Private MD: Pradip Gaxiola H Diagnosis: Calculus of ureter;Other acute kidney failure Presentation: 05/27 11:21 Chief complaint: Patient states: Difficulty urinating that started this morning, states ph that "only a little comes out and when it does it burger." Also reports R sided flank pain and nausea. Coronavirus screen: Client denies travel out of the [place] in the last 14 days. At this time, the client does not indicate any symptoms associated with coronavirus-19. Ebola Screen: No symptoms or risks identified at this time. Initial Sepsis Screen: Does the patient meet any 2 criteria? No. Patient's initial sepsis screen is negative. Does the patient have a suspected source of infection? No. Patient's initial sepsis screen is negative. Risk Assessment: Do you want to hurt yourself or someone else? Patient reports no desire to harm self or others. Onset of symptoms was May 27, 2021. 11:21 Method Of Arrival: Ambulatory ph 11:21 Acuity: ERNST 3 ph Triage Assessment: 12:37 General: Appears uncomfortable, Behavior is calm, cooperative, appropriate for age, kg quiet. Pain: Complains of pain in right lower quadrant Pain does not radiate. Pain currently is 6 out of 10 on a pain scale. at worst was 8 out of 10 on a pain scale. level that patient reports is acceptable is 3 out of 10 on a pain scale. Pain began This AM. EENT: No deficits noted. Neuro: No deficits noted. Cardiovascular: No deficits noted. Respiratory: No deficits noted. GI: Abdomen is tender to palpation in right lower quadrant. : Reports inability to void, since this AM. Derm: No deficits noted. Musculoskeletal: No deficits noted. Historical: - Allergies: 11:23 No Known Allergies; ph - PMHx: 11:23 Colon Polyps; Diverticulitis; Hyperlipidemia; Hypertension; prostate cancer- treated ph with extreemly high does radiation in 2016; rectal bleeding/intestinal sloughing; - Immunization history:: Client reports receiving the 2nd dose of the Covid vaccine. - Social history:: Smoking status: Patient denies any tobacco usage or history of. Screenin:30 Abuse screen: Denies threats or abuse. Nutritional screening: No deficits noted. tw2 Tuberculosis screening: No symptoms or risk factors identified. Fall Risk None identified. Assessment: 12:32 Reassessment: Patient appears in no apparent distress at this time. No changes from tw2 previously documented assessment. Patient and/or family updated on plan of care and expected duration. Pain level reassessed. Patient is alert, oriented x 3, equal unlabored respirations, skin warm/dry/pink. 12:39 GI: Abdomen is round Bowel sounds present X 4 quads. kg 13:40 Reassessment: initated transfer to [facility] per pt request. iw 16:06 Reassessment: Report given to [facility]. kg Vital Signs: 11:21 BP 165 / 93; Pulse 70; Resp 18; Temp 97.2; Pulse Ox 97% on R/A; Weight 113.4 kg; Height ph 5 ft. 11 in. (180.34 cm); Pain 8/10; 12:31 BP 160 / 91; Pulse 81; Resp 17; Pulse Ox 97% on R/A; tw2 13:00 BP 141 / 82; Pulse 77; Resp 20; Pulse Ox 97% on R/A; kg 13:30 BP 147 / 77; Pulse 75; Resp 18; Pulse Ox 96% on R/A; kg 14:00 BP 152 / 88; Pulse 79; Resp 20; Pulse Ox 96% ; kg 14:30 BP 136 / 68; Pulse 60; Resp 20; Pulse Ox 97% on R/A; kg 15:00 BP 143 / 87; Pulse 60; Resp 20; Pulse Ox 97% ; kg 15:30 BP 133 / 89; Pulse 78; Resp 20; Pulse Ox 96% on R/A; kg 11:21 Body Mass Index 34.87 (113.40 kg, 180.34 cm) ph ED Course: 11:09 Patient arrived in ED. am2 11:09 Pradip Gaxiola DO is Private Physician. am2 11:17 Ayo Moyer PA is PHCP. [facility] 11:17 Rob Ackerman MD is Attending Physician. [facility] 11:23 Triage completed. ph 11:23 Arm band placed on Patient placed in an exam room. ph 11:24 Bed in low position. Call light in reach. Adult w/ patient. Pulse ox on. NIBP on. tw2 11:[address], RN is Primary Nurse. kg 12:02 CT Stone Protocol In Process Unspecified. EDMS 12:36 Morgan cath inserted, using sterile technique, 16 Fr., by ar, balloon inflated, to kg gravity drainage, urine specimen collected. Coude placed. 12:40 1240 CALLED TO SET UP [facility]. em1 16:06 No provider procedures requiring assistance completed. Converted IV to saline lock on kg left antecubital area. Administered Medications: 12:20 Drug: NS 0.9% 1000 ml Route: IV; Rate: 1 bolus; Site: left antecubital; kg 16:08 Follow up: IV Status: Completed infusion; IV Intake: 1000ml kg 12:20 Drug: Flomax (tamsulosin) 0.4 mg Route: PO; kg 16:08 Follow up: Response: No adverse reaction; Pain is decreased kg 12:20 Drug: Zofran (Ondansetron) 4 mg Route: IVP; Site: left antecubital; kg 16:08 Follow up: Response: No adverse reaction kg 12:34 Drug: morphine 4 mg Route: IVP; Site: left antecubital; kg 16:08 Follow up: Response: No adverse reaction; Pain is decreased kg Intake: 16:08 IV: 1000ml; Total: 1000ml. kg Output: 16:01 Urine: 625ml (Morgan); Total: 625ml. kg Outcome: 14:08 ER care complete, transfer ordered by . reyes 16:07 Transferred by ground EMS to [facility]. kg 16:07 Condition: stable 16:07 Instructed on the need for transfer, Demonstrated understanding of instructions. 16:21 Patient left the ED. tw2 Signatures: Dispatcher [employer] EDMS Ayo Moyer PA PA jmm Williams, Irene, RN Lee Caraballo em1 Marisela Serrano RN RN Tamara Lopez RN JUAN tw2 Brenda lFores am[address] RN RN kg
[2021-05-27 16:26] VITALS: TEMP 97.2
[2021-05-27 16:36] VITALS: BP 133/89; O2SAT 96
== END 2021-05-27 16:21 | disposition short-term general hospital (02) ==
LOC: ER 11:08
DX: N20.1 Calculus of ureter (principal); N19 Unspecified kidney failure; I10 Essential (primary) hypertension; Z20.822 Contact with and (suspected) exposure to COVID-19
CPT/HCPCS: 96361; 85025; 80048; 36415; 80076; 81003; 83690; 76377; 74176; 51702; 96375; 96374; 99285; U0003; J7030; J2405

== ENCOUNTER 2021-06-02 05:26 | Emergency (ER) | payer OTHER ==
[2021-06-02 07:00] LABS: Absolute Lymphocytes (CBC) 1.2 K/uL (0.7-4.9); Basophils % 0.4 % (0-1.3); Hematocrit 40.8 % (39.6-49.0); Lymphocytes % 10.4 % (15.3-44.8); MPV 8.8 fL (7.6-11.3); RBC Red Blood Cell Count 4.81 M/uL (4.33-5.43)
[2021-06-02] MEDS ORDERED: CEFTRIAXONE/SWI 1gm 2 GM/20 ML SYR ONE (07:16)
[2021-06-02] MEDS ORDERED: NA CHLORIDE 0.9% 1,000 ML ONE (07:16)
[2021-06-02 07:20] LABS: ALT/SGPT 26 U/L (12-78); AST/SGOT 9 U/L (15-37); Albumin 3.5 g/dL (3.4-5.0); Alkaline Phosphatase 55 U/L (45-117); BUN Blood Urea Nitrogen 23 mg/dL (7-18); Bicarbonate 26 mmol/L (21-32); Bilirubin Direct 0.2 mg/dL (0-0.2); Bilirubin Total 1.1 mg/dL (0.2-1.0); Glucose Level 134 mg/dL (74-106); Magnesium 1.8 mg/dL (1.8-2.4); NT PRO-BNP 80 pg/mL (<125); Potassium 3.3 mmol/L (3.5-5.1); Protein, Total 7.5 g/dL (6.4-8.2); Sodium Level 140 mmol/L (136-145); Troponin (Emerg Dept Use Only) < 0.02 ng/mL (0.0-0.045)
--- NOTE | 2021-06-02 07:47 | RAD REPORT ---
EXAM DESCRIPTION: RAD - Chest Single View - 06/02/2021 7:01 am CLINICAL HISTORY: Chills palpitation COMPARISON: None. TECHNIQUE: AP portable chest image was obtained . FINDINGS: Lungs are clear. Heart and vasculature are normal. No measurable pleural effusion and no p neumothorax. No gross bony abnormality seen. IMPRESSION: No acute cardiopulmonary process.
[2021-06-02 07:56] LABS: Protime INR 1.11
[2021-06-02 08:27] LABS: Urine Blood 3+ (Negative); Urine Glucose Negative (Negative); Urine Protein 2+ (Negative); Urine Specific Gravity 1.015 (1.005-1.030); Urine pH 6.5 (5.0-7.0)
--- NOTE | 2021-06-02 09:29 | RAD REPORT ---
EXAM DESCRIPTION: CTAbdomen Pelvis W Contrast - 06/02/2021 9:04 am CLINICAL HISTORY: Abdominal pain. flank pain, recent surgical procedure COMPARISON: Abdomen Pelvis W Contrast dated 05/10/2019; Stone Protocol dated 05/27/2021 TECHNIQUE: Biphasic CT imaging of the abdomen and pelvis was performed with 100 ml non-ionic IV cont rast. All CT scans are performed using dose optimization technique as appropriate and may include automated exposure control or mA/KV adjustment according to patient size. FINDINGS: The lung bases are clear. Multiple benign hypoattenuating lesions in the liver which are unchanged since 05/10/2019. Cholecyste ctomy. The adrenal glands and pancreas are unremarkable. The spleen is unremarkable. Right ureteral s tent in place with continued mild right-sided hydronephrosis. Left ureteral stent without hydronephro sis. Bilateral nephrolithiasis. The previously noted right UVJ stone is no longer identified. Bladder wall thickening is noted, likely chronic. Mild prostatomegaly. The left ureteral stone is no longer identified. Renal lesions again noted which likely represent cysts. No bowel obstruction, free air, free fluid or abscess. No evidence of significant lymphadenopathy. No suspicious bony findings. Disc height loss at L5-S1. IMPRESSION: Bilateral ureteral stents in place. Previously seen ureteral calculi are no longer ident ified. Persistent mild right-sided hydronephrosis despite the presence of the stent. .
--- NOTE | 2021-06-02 09:36 | EDPHYS ---
Physician Documentation [facility] Name: Winston Castro Age: 65 yrs Sex: Male : 1955 Arrival Date: 06/02/2021 Time: 05:29 Bed 14 Private MD: ED Physician Lobo Pina HPI: 06/02 06:44 This 65 yrs old Male presents to ER via Ambulatory with complaints of jmm Palpitations. 06:44 The patient presents with a history of heart racing. Onset: The symptoms/episode jmm began/occurred gradually, 1 day(s) ago. Modifying factors: The symptoms are aggravated by nothing. The symptoms are alleviated by nothing. Associated signs and symptoms: Pertinent positives:. This is a 65 year old male with a history of htn, prostate concer, hlp, that presents to the ED 1 week s/p bilateral obstructive ureteral stones. States he has had a racing heartbeat with increased blood pressure. Patient is concerned it may be due to oxybutynin . Denies vomiting. has some mild left flank pain. Denies chest pain. Historical: - Allergies: 05:55 No Known Allergies; jb4 - Home Meds: 05:55 Lorraine 180 mg Oral tab 1 tab once daily [Active]; amlodipine oral [Active]; aspirin 81 jb4 mg Oral chew 1 tab once daily [Active]; Metoprolol Tartrate Oral [Active]; Niaspan Oral [Active]; pravastatin Oral [Active]; tadalafil Oral [Active]; Tricor Oral [Active]; valsartan Oral [Active]; - PMHx: 05:55 Colon Polyps; Diverticulitis; Hyperlipidemia; Hypertension; prostate cancer- treated jb4 with extreemly high does radiation in 2016; rectal bleeding/intestinal sloughing; - PSHx: 05:55 Lithotripsy; jb4 - Immunization history:: Adult Immunizations up to date. - Social history:: Smoking status: . ROS: 06:46 Constitutional: Positive for chills. jmm 06:46 Cardiovascular: Positive for palpitations. 06:46 All other systems are negative. Exam: 06:46 Constitutional: This is a well developed, well nourished patient who is awake, alert, jmm and in no acute distress. Head/Face: atraumatic. Eyes: EOMI, no conjunctival erythema appreciated ENT: Moist Mucus Membranes Neck: Trachea midline, Supple Chest/axilla: Normal chest wall appearance and motion. Cardiovascular: Regular rate and rhythm. No edema appreciated Respiratory: Normal respirations, no respiratory distress appreciated Abdomen/GI: Non distended, soft Back: Normal ROM Skin: General appearance color normal MS/ Extremity: Moves all extremities, no obvious deformities appreciated, no edema noted to the lower extremities Neuro: Awake and alert, normal gait Psych: Behavior is normal, Mood is normal, Patient is cooperative and pleasant Vital Signs: 05:53 BP 166 / 85; Pulse 114; Resp 20; Temp 99.1(O); Pulse Ox 98% on R/A; Weight 113.4 kg jb4 (R); Height 5 ft. 11 in. (180.34 cm) (R); Pain 0/10; 10:03 BP 151 / 86; Pulse 112; Resp 17; Pulse Ox 98% on R/A; tw2 05:53 Body Mass Index 34.87 (113.40 kg, 180.34 cm) jb4 MDM: 06:42 Patient medically screened. [facility] 09:34 Data reviewed: vital signs, nurses notes. Counseling: I had a detailed discussion with [facility] the patient and/or guardian regarding: the historical points, exam findings, and any diagnostic results supporting the discharge/admit diagnosis, lab results, radiology results, the need for outpatient follow up, to return to the emergency department if symptoms worsen or persist or if there are any questions or concerns that arise at home. ED course: Patient is alert and non toxic in appearance in the ED. Patient advised to follow up with urology for reevaluation. patient is otherwise given strict return precautions. patient understood and agrees with the plan of care. . 06/02 06:43 Order name: Basic Metabolic Panel; Complete Time: 07:48 [facility] 06/02 06:43 Order name: CBC with Diff; Complete Time: 07:48 [facility] 06/02 06:43 Order name: LFT's; Complete Time: 07:48 [facility] 06/02 06:43 Order name: Magnesium; Complete Time: 07:48 [facility] 06/02 06:43 Order name: NT PRO-BNP; Complete Time: 07:48 [facility] 06/02 06:43 Order name: PT-INR; Complete Time: 07:59 [facility] 06/02 06:43 Order name: Troponin (emerg Dept Use Only); Complete Time: 07:48 [facility] 06/02 06:43 Order name: XRAY Chest (1 view); Complete Time: 07:48 [facility] 06/02 06:43 Order name: Procalcitonin; Complete Time: 07:59 [facility] 06/02 06:43 Order name: Lactate; Complete Time: 07:48 [facility] 06/02 06:43 Order name: Blood Culture Adult (2) [facility] 06/02 06:43 Order name: Urine Culture [facility] 06/02 08:27 Order name: Urine Dipstick-Ancillary; Complete Time: 08:30 [facility] 07 08:31 Order name: CT Abd/Pelvis - IV Contrast Only; Complete Time: 09:32 [facility] 06/02 06:43 Order name: EKG; Complete Time: 06:44 [facility] 06/02 06:43 Order name: Cardiac monitoring; Complete Time: 07:06 [facility] 06/02 06:43 Order name: EKG - Nurse/Tech; Complete Time: 08:31 [facility] 06/02 06:43 Order name: IV Saline Lock; Complete Time: 07:06 [facility] 06/02 06:43 Order name: Labs collected and sent; Complete Time: 07:06 [facility] 06/02 06:43 Order name: O2 Per Protocol; Complete Time: 07:06 [facility] 06/02 06:43 Order name: O2 Sat Monitoring; Complete Time: 07:06 [facility] 06/02 06:43 Order name: Urine Dipstick-Ancillary (obtain specimen); Complete Time: 08:30 [facility] Administered Medications: No medications were administered Disposition Summary: 06/02/21 09:35 Discharge Ordered Location: Home [facility] Condition: Stable [facility] Diagnosis - Palpitations jmm - UTI/ Urinary tract infection, site not specified [facility] Followup: [facility] - With: Private Physician - When: 2 - 3 days - Reason: Recheck today's complaints, Continuance of care, Re-evaluation by your physician Discharge Instructions: - Discharge Summary Sheet [facility] - Palpitations jm - Urinary Tract Infection, Adult [facility] Forms: - Medication Reconciliation Form [facility] - Thank You Letter [facility] - Antibiotic Education [facility] - Prescription Opioid Use [facility] Prescriptions: - cefpodoxime 200 mg Oral Tablet - take 1 tablet by ORAL route every 12 hours with food; 20 tablet; Refills: 0, reyes Product Selection Permitted Addendum: 06/05/2021 06:26 Co-signature as Attending Physician, Lobo Pina MD. m Signatures: Dispatcher [employer] EDAyo Horan PA PA jmm Wise, Tara RN RN tw2 David Sherman RN RN jb4 Lobo Pina MD MD [email or web address] Corrections: (The following items were deleted from the chart) 06/02 06:48 06:44 This is a 65 year . reyes chambers
--- NOTE | 2021-06-02 09:36 | ER ---
Nurse's Notes [facility] Name: Winston Castro Age: 65 yrs Sex: Male : 1955 Arrival Date: 06/02/2021 Time: 05:29 Bed 14 Private MD: Diagnosis: Palpitations;UTI/ Urinary tract infection, site not specified Presentation: 06/02 05:53 Chief complaint: Patient states: I am having palpitations and chills. I have a slight jb4 headache. It all started yesterday. Coronavirus screen: Client denies travel out of the [place] in the last 14 days. At this time, the client does not indicate any symptoms associated with coronavirus-19. Ebola Screen: No symptoms or risks identified at this time. Initial Sepsis Screen: Does the patient meet any 2 criteria? HR > 90 bpm. Yes Does the patient have a suspected source of infection? No. Patient's initial sepsis screen is negative. Risk Assessment: Do you want to hurt yourself or someone else? Patient reports no desire to harm self or others. Onset of symptoms was June 01, 2021. Transition of care: patient was not received from another setting of care. 05:53 Method Of Arrival: Ambulatory jb4 05:53 Acuity: ERNST 3 jb4 Historical: - Allergies: 05:55 No Known Allergies; jb4 - Home Meds: 05:55 Lorraine 180 mg Oral tab 1 tab once daily [Active]; amlodipine oral [Active]; aspirin 81 jb4 mg Oral chew 1 tab once daily [Active]; Metoprolol Tartrate Oral [Active]; Niaspan Oral [Active]; pravastatin Oral [Active]; tadalafil Oral [Active]; Tricor Oral [Active]; valsartan Oral [Active]; - PMHx: 05:55 Colon Polyps; Diverticulitis; Hyperlipidemia; Hypertension; prostate cancer- treated jb4 with extreemly high does radiation in 2016; rectal bleeding/intestinal sloughing; - PSHx: 05:55 Lithotripsy; jb4 - Immunization history:: Adult Immunizations up to date. - Social history:: Smoking status: . Screenin:00 Abuse screen: Denies threats or abuse. Nutritional screening: No deficits noted. tw2 Tuberculosis screening: No symptoms or risk factors identified. Fall Risk None identified. Assessment: 07:10 General: Appears in no apparent distress. well groomed, Behavior is anxious. Pain: tw2 Denies pain. Neuro: Level of Consciousness is awake, alert, obeys commands, Oriented to person, place, time, situation. Cardiovascular: Patient's skin is warm and dry. Respiratory: Airway is patent Respiratory effort is even, unlabored, Respiratory pattern is regular, symmetrical. GI: No signs and/or symptoms were reported involving the gastrointestinal system. : No signs and/or symptoms were reported regarding the genitourinary system. Musculoskeletal: Range of motion: intact in all extremities. 08:30 Reassessment: Patient appears in no apparent distress at this time. No changes from tw2 previously documented assessment. Patient and/or family updated on plan of care and expected duration. Pain level reassessed. Patient is alert, oriented x 3, equal unlabored respirations, skin warm/dry/pink. 08:37 Reassessment: provider at bedside at this time. tw2 10:02 Reassessment: provider at bedside at this time going over results with pt and spouse. tw2 10:19 Reassessment: Patient appears in no apparent distress at this time. No changes from tw2 previously documented assessment. Patient and/or family updated on plan of care and expected duration. Pain level reassessed. Patient is alert, oriented x 3, equal unlabored respirations, skin warm/dry/pink. Vital Signs: 05:53 BP 166 / 85; Pulse 114; Resp 20; Temp 99.1(O); Pulse Ox 98% on R/A; Weight 113.4 kg jb4 (R); Height 5 ft. 11 in. (180.34 cm) (R); Pain 0/10; 10:03 BP 151 / 86; Pulse 112; Resp 17; Pulse Ox 98% on R/A; tw2 05:53 Body Mass Index 34.87 (113.40 kg, 180.34 cm) jb4 ED Course: 05:29 Patient arrived in ED. ag3 05:55 Triage completed. jb4 05:55 Arm band placed on right wrist. jb4 06:28 Ayo Moyer PA is PHCP. [facility] 06:28 Lobo Pina MD is Attending Physician. [facility] 07:01 XRAY Chest (1 view) In Process Unspecified. EDMS 07:05 Tamara Lopez, RN is Primary Nurse. tw2 07:06 Bed in low position. Call light in reach. informatica developer on. Pulse ox on. NIBP on. tw2 07:06 Report received from JUAN Aleman, informed Rocephin and NS were given by JUAN Aleman and tw2 that the EKG was not done yet. 07:06 Inserted saline lock: 20 gauge in left antecubital area, using aseptic technique. tw2 ,using aseptic technique. by JUAN Aleman. 08:30 Urine Culture Sent. tw2 09:04 CT Abd/Pelvis - IV Contrast Only In Process Unspecified. EDMS 09:46 Awaiting: provider to go over results with pt prior to discharge, pt states "i have a tw2 lot of questions", provider notified. 10:19 No provider procedures requiring assistance completed. IV discontinued, intact, tw2 bleeding controlled, No redness/swelling at site. Pressure dressing applied. Administered Medications: No medications were administered Outcome: 07:06 Discharged to home ambulatory, with family. tw2 07:06 Condition: stable 07:06 Discharge instructions given to patient, family, Instructed on discharge instructions, follow up and referral plans. medication usage, Demonstrated understanding of instructions, follow-up care, medications, Prescriptions given X 1. 09:35 Discharge ordered by . reyes 10:20 Patient left the ED. tw2 Signatures: Dispatcher [employer] EDMS Ayo Moyer PA PA jmm Wise, Tara, RN RN tw2 David Sherman RN RN jb4 Dorothea Carvajal ag3 Corrections: (The following items were deleted from the chart) 08:45 07:58 Report received from JUAN Aleman, informed Rocephin and NS were given by tw2 JUAN Aleman tw2
[2021-06-02 10:33] VITALS: TEMP 99.1; O2SAT 98
[2021-06-02 10:34] VITALS: BP 151/86
--- NOTE | 2021-06-03 08:06 | EKG ---
Test Date: 2021-06-02 Test Time: 05:50:02 Business Planning Director: STEPHANIE MEASUREMENT RESULTS: Intervals: Rate: 111 FL: 138 QRSD: 144 QT: 360 QTc: 489 [place]: P: 64 FL: 138 QRS: 25 T: 26 INTERPRETIVE STATEMENTS: Sinus tachycardia with premature atrial complexes Right bundle branch block Abnormal ECG Compared to ECG 06/14/2019 12:24:28 Atrial premature complex(es) now present Sinus rhythm no longer present Electronically Signed On 06-03-21 08:03:47 CDT by Quirino Martinez
--- NOTE | 2021-06-04 07:48 | EKG ---
Test Date: 2021-06-02 Test Time: 08:21:13 Loin Puller: LORENA MEASUREMENT RESULTS: Intervals: Rate: 90 MA: 142 QRSD: 144 QT: 376 QTc: 459 [place]: P: 63 MA: 142 QRS: 34 T: 25 INTERPRETIVE STATEMENTS: Sinus rhythm with blocked premature atrial complexes Right bundle branch block Abnormal ECG Compared to ECG 06/02/2021 05:50:02 Sinus tachycardia no longer present Electronically Signed On 06-04-21 07:43:28 CDT by Quirino Martinez
== END 2021-06-02 10:20 | disposition home or self-care (01) ==
LOC: ER 05:26
DX: N39.0 Urinary tract infection, site not specified (principal); I10 Essential (primary) hypertension; Z79.82 Long term (current) use of aspirin
CPT/HCPCS: 93005 ×2; 87040 ×2; 87088; 85025; 87086; 80048; 36415; 83735; 85610; 80076; 83605; 81003; 84484; 84145; 83880; 74177; 71045; 99284; Q9967; J0696; J7030

== ENCOUNTER 2022-04-11 07:14 | Day surgery (SDC) | payer OTHER ==
[2022-04-08 10:57] LABS: Absolute Lymphocytes (CBC) 1.7 K/uL (0.7-4.9); Hematocrit 39.6 % (39.6-49.0); Lymphocytes % 23.4 % (15.3-44.8); MPV 8.2 fL (7.6-11.3); RBC Red Blood Cell Count 4.84 M/uL (4.33-5.43)
[2022-04-08 11:29] LABS: Potassium 2.5 mmol/L (3.5-5.1)
--- NOTE | 2022-04-08 11:52 | RAD REPORT ---
EXAM DESCRIPTION: RAD - Chest Pa And Lat (2 Views) - 04/08/2022 11:19 am CLINICAL HISTORY: PRE PROCEDURE SCREENINGsoft tissue mass removal from the back COMPARISON: Single-view chest 06/02/2021, two view chest 06/14/2019 TECHNIQUE: Frontal and lateral views of the chest were obtained. FINDINGS: The lungs are clear of new mass or infiltrate. Prominent interstitial pattern has not nyla rly changed. Lung volumes are low. No acute failure or volume overload finding. Hilar regions are within normal limits and stable. No mediastinal abnormality suspected. Heart size is normal and central vasculature is within normal limits. No pleural effusion or pneumothorax seen. No acute bony finding noted. No aortic abnormality. IMPRESSION: No acute cardiopulmonary process. No significant change from comparison study.
[2022-04-11] MEDS ORDERED: NA CHLORIDE 0.9% 50 ML ONE (07:36)
[2022-04-11] MEDS ORDERED: Ringers Lactate 1,000 ML IV ONE (07:36)
[2022-04-11] MEDS: CEFAZOLIN SODIUM 1 GM/VIAL ONE ×2 (08:02→12:49)
[2022-04-11] MEDS ORDERED: ACETAMINOPHEN 500 MG TAB ONE (08:05)
[2022-04-11] MEDS ORDERED: KCL 20 MEQ/100 mL IVPB 100 ML IV ONE ×3 (08:45→12:30)
[2022-04-11] MEDS ORDERED: POTASSIUM CL SA 10 MEQ TAB PO ONE ×2 (09:00→11:25)
[2022-04-11] MEDS ORDERED: LIDOCAINE 1% 20 ML MDV ONE (10:53)
[2022-04-11] MEDS ORDERED: propofoL 200 MG/20 ML VIAL IV ONE (12:42)
[2022-04-11] MEDS ORDERED: FENTANYL CITR 100 MCG/2 ML ONE (12:42)
[2022-04-11] MEDS ORDERED: MIDAZOLAM HCL 2 MG/2 ML INJ ONE (12:43)
[2022-04-11] MEDS ORDERED: LIDOCAINE 1% MPF 5 ML VIAL ONE (12:43)
[2022-04-11] MEDS ORDERED: ONDANSETRON 4 MG/2 ML VIAL ONE (12:43)
--- NOTE | 2022-04-11 15:20 | P.BOP ---
Preoperative diagnosis: infected back subQ mass Postoperative diagnosis: same Primary procedure: Excisional biopsy of infected back subQ mass Estimated blood loss: <10cc Specimen: mass Findings: as above Anesthesia: General Transferred to: Recovery Room Condition: Good
[2022-04-11 16:44] VITALS: O2SAT 98
[2022-04-11 16:47] VITALS: BP 121/62; TEMP 97.8
--- NOTE | 2022-04-12 03:54 | OP ---
Date of Procedure: 04/11/2022 Surgeon: Drew Salvador MD Preoperative Diagnosis: Infected back subcutaneous mass. Postoperative Diagnosis: Infected back subcutaneous mass. Procedure: Excisional biopsy of infected back subcutaneous mass. Estimated Blood Loss: Less than 10 mL. Specimen: Mass. Complications: None. Indication: This is a case of a male who comes to us with an infected mass. He has been on antibiot ics for about 20 days, the first time. He still has the redness present in that area. Although dimi nished in size, still present. He wants that excised. We had to restart recently his antibiotics ag ain. He wants to try to see if we can remove this and close at the same time. We explained to him t he pros and cons of that decision based on the findings that we have. The benefits, alternatives, an d risks of excisional biopsy of infected back mass were fully explained which include, but not limite d to, infection, bleeding, damage to adjacent structures, anesthesia complication, nonhealing wound, abscess, MT, and even . He also understands this may not relieve symptoms. He might need more than one surgical intervention. He also may require wound care. We will leave this open. He might have to do with wet-to-dry until it closes from inside out. We will leave it partially open and we w ill see in the next few days that the area does not improve, then we may have to remove all the sutur es and do wound care. He wants to place sutures if possible. He does not want to have it completely open. He is willing to come on Monday to see how he feels. If the area does not improve, then h e is going to let me remove the stitches. If I do not see any gilma pus in that area, may attempt to do so with profuse irrigation. He understood. He is always having hypokalemia. We will repeat the blood work today. We even gave potassium this morning. We had recommended him to see his primary d feior, Dr. Sawyer, since he is on diuretic. We noticed his potassium level is low, although he takes p otassium supplements. Description Of Procedure: The area of concern was marked by me with the patient in the holding room. The patient was brought to the operating room, placed in supine position. Anesthesia was done with out complication. The back area was prepped and draped in sterile fashion. A time-out was called. A wedge incision on the skin was made to remove not only the mass, but the inflammation around the ar ea. I did not see any pus in that region even though it had some redness, so we irrigated the area p rofusely. We proceeded then to approximate the deep tissue with 0 chromic and the skin with 3-0 nylo n. Sponge count and instrument counts were correct. The patient tolerated procedure well. The kyler ent was sent to recovery in stable condition. CRAIG/LEISA Voice ID: [id number] Report ID: [id number]
--- NOTE | 2022-04-12 04:00 | DS ---
Date of Discharge: 04/11/2022 Diagnosis: Infected back subcutaneous mass. Procedure: Excisional biopsy of infected back subcutaneous mass. Disposition: Home. Followup: Follow up in my office in 1 week, call for appointment at [phone]. He was once again enc ouraged to see his primary doctor for his potassium supplement. He is going to follow up this in my office and then a week from now. Has already called the antibiotics and the pain medicatio n in advance. CRAIG/LEISA Voice ID: [id number] Report ID: [id number]
== END 2022-04-11 16:40 | disposition home or self-care (01) ==
LOC: OR 07:14
PROVIDERS: ATTEND Surgery
PROC: 0JB70ZZ Excision of Back Subcutaneous Tissue and Fascia, Open Approach (ICD-10-PCS; principal; 2022-04-11 09:00)
DX: L72.0 Epidermal cyst (principal); Z20.822 Contact with and (suspected) exposure to COVID-19; I10 Essential (primary) hypertension; E78.00 Pure hypercholesterolemia, unspecified; I51.9 Heart disease, unspecified
CPT/HCPCS: 93005; 85025; 80048; 36415 ×2; 84132 ×3; 88305; 71046; 11404; U0003; J2704; J3480 ×2; J2250; J3010; J7120; J2405; J0690

== ENCOUNTER 2023-01-02 07:22 | Day surgery (SDC) | payer OTHER ==
[2023-01-02] MEDS ORDERED: Ringers Lactate 1,000 ML IV ONE (07:38)
[2023-01-02] MEDS ORDERED: propofoL 200 MG/20 ML VIAL IV ONE (08:15)
[2023-01-02] MEDS ORDERED: LIDOCAINE 1% MPF 5 ML VIAL ONE (08:15)
[2023-01-02 08:38] VITALS: O2SAT 97
[2023-01-02 08:41] LABS: Potassium 3.3 mmol/L (3.5-5.1)
--- NOTE | 2023-01-02 09:29 | ENDO RPT ---
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 ESTIMATED BLOOD LOSS: None CONSENT: The patient understands the risks and benefits of the procedure and understands that these risks include, but are not limited to: sedation, allergic reaction, infection, perforation and/or bleeding. Alternative means of evaluation and treatment include, among others: physical exam, x-rays, and/or surgical intervention. The patient elects to proceed with this endoscopic procedure. DESCRIPTION OF PROCEDURE: During intra-op preparation period all mechanical medical equipment was checked for proper function. Hand hygiene and appropriate measures for infection prevention was taken. Procedure, possible complications, alternatives including, but not limited to possibility of bleeding, perforation, tear, infection, sepsis, need for surgery, need for blood transfusion, were explained to the patient. After the risks, benefits and alternatives of the procedure were thoroughly explained, Informed consent was verified, confirmed and timeout was successfully executed by the treatment team. The patient was placed in the left lateral position. A digital rectal exam was performed and revealed external hemorrhoids. After appropriate level of anesthesia, the scope was passed. The EC-[id number] ([id number]) endoscope was introduced through the anus and advanced to the cecum, which was identified by transillumination from the light source, the appendix, and the ileocecal valve. The quality of the prep was good. The instrument was then slowly withdrawn as the colon was fully examined. Scope withdrawal time was . COLON FINDINGS: Diverticula was found throughout the entire examined colon. The opening was medium sized. Multiple sessile polyps were found in the proximal ascending colon and distal sigmoid(approximately 40 cm from anal verge. Retroflexed views revealed no abnormalities. The scope was then completely withdrawn from the patient and the procedure terminated. ADVERSE EVENTS: There were no complications. IMPRESSIONS: 1. Diverticula throughout the entire examined colon 2. Multiple sessile polyps ranging between 3-5mm in size were found in the proximal ascending colon; polypectomy was performed in a piecemeal fashion using hot forceps 3. External hemorrhoids 4. Internal hemorrhoids RECOMMENDATIONS: 1. await biopsy results 2. hemorrhoidal hygiene 3. no seeds in diet 4. await biopsy results RECALL: for Colonoscopy, pending biopsy results. Drew Salvador MD eSigned: Drew Salvador MD 01/02/2023 9:28 AM cc: Alyssa Gaxiola M.D. CPT CODES: ICD9 CODES: PATIENT NAME: Winston Castro MR#: [id number]
[2023-01-02 09:54] VITALS: BP 111/89; TEMP 98
== END 2023-01-02 10:04 | disposition home or self-care (01) ==
LOC: OR 07:22
PROVIDERS: ATTEND Surgery
PROC: 0DBN8ZX Excision of Sigmoid Colon, Via Natural or Artificial Opening Endoscopic, Diagnostic (ICD-10-PCS; 2023-01-02)
PROC: 0DBK8ZX Excision of Ascending Colon, Via Natural or Artificial Opening Endoscopic, Diagnostic (ICD-10-PCS; principal; 2023-01-02 08:30)
DX: K52.0 Gastroenteritis and colitis due to radiation (principal); D12.2 Benign neoplasm of ascending colon; D12.5 Benign neoplasm of sigmoid colon; K57.30 Diverticulosis of large intestine without perforation or abscess without bleeding; I10 Essential (primary) hypertension; E78.00 Pure hypercholesterolemia, unspecified; Z86.010 Personal history of colon polyps; Z85.46 Personal history of malignant neoplasm of prostate
CPT/HCPCS: 80048; 36415; 88305; 45384; J2704; J2001; J7120

== ENCOUNTER → 2024-02-08 | Emergency (ER) | payer OTHER ==
--- OUTSIDE RECORDS SUMMARY | 2024-02-08 15:27 | XMS REPORT | Continuity of Care Document ---
Author Name Unknown Address [address] [facility] [place] [address] [facility] Address [address] [facility] [address] [place] [address] Care Team Providers Care Coating Engineer Name Role Phone [id number] Primary Care Physician Unavailab KARL Damon Attending Clinician Unavailable Karl Paul MD Attending Clinician [phone] Pob, [facility] Main Attending Clinician Charlie Ortega MD Attending Clinician [phone] CHARLIE SCHWARZ Attending Clinician Unavailabl KIMO Orlando Attending Clinician Unavailable Doctor Unassigned, Jeddo Attending Clinician U June Henao MD Attending Clinician [phone] JUNE VINES Attending Clinician UnavailBeatris Roper MD Attending Clinician [phone] BEATRIS ENAMORADO Attending Clinician Unavailable CHARLEEN REYNOSO Attending Clinician Unavailtamika e [facility] Attending Clinician Unavailable Kirsten Crawford NP Attending Clinician [phone] SARAH TUCKER Attending Clinician Unavailtamika Marquez RN, Skylar Dumont Attending Clinician Unavailab Janet Harmon Attending Clinician [phone] Payam Kruse MD Attending Clinician [phone] PAYAM KRUSE Attending Clinician Unavailable Benja PATTERSON, Nino Attending Clinician [phone] Lore Love DO Attending Clinician [phone] Karl Paul MD Admitting Clinician [phone] Payers Payer Name Policy Type Policy Number Effective Date Expirati on Date Source [employer] MANAGED MEDICARE PPO-OLGA [id number] 2020 00:00:00 [employer] MED[employer] PPO [id number] 1 00:00:00 Problems Condition Name Condition Details Condition Category Status Onset Date Resolution Date Last Treatment Date Treating Clinician Comments Source Hypercalci uria Hypercalci uria Disease Active 07-26 00:00: 00 [facility] Hyperoxalu abdiel Hyperoxalu abdiel Disease Active 07-26 00:00: 00 [facility] Hyperurico suria Hyperurico suria Disease Active 07-26 00:00: 00 [facility] Prostate cancer Prostate cancer Disease Active 06-25 00:00: 00 [facility] Gross hematuria Gross hematuria Disease Active 06-07 00:00: 00 [facility] Bilateral ureteral calculi Bilateral ureteral calculi Disease Active 05-27 00:00: 00 [facility] Allergies, Adverse Reactions, Alerts Allergy Name Allergy Type Status Severity Reaction(s) Onset Date Inactive Date Treating Clinician Comments Source NO KNOWN ALLERGIE S Drug Class Active [facility] Social History Social Habit Start Date Stop Date Quantity Comments Source [facility] Tobacco use and exposure 2022-11-15 00:00:00 2022-11-15 00:00:00 Smokeless tobacco non-user [facility] Exposure to SARS-CoV-2 (event) 2022 00:00:00 2022-11-13 12:45:00 Not sure [facility] History of Social function 2021-07-26 00:00:00 2021-07-26 00:00:00 [facility] Sex Assigned At 1955 00:00:00 1955 00:00:00 [facility] Smoking Status Start Date Stop Date Source Never smoked tobacco [facility] Medications Ordered Medication Name Filled Medication Name Start Date Stop Date Current Medication? Ordering Clinician Indication Dosage Frequency Signature (SIG) Comments Components Source potassium citrate 99 mg Cap 2021-11 11:27: 11-16 00:00 :00 No 99mg Take 99 mg by mouth 2 (two) times daily. Take 4 tablets in AM and 4 tablets in the PM. [facility] potassium citrate 99 mg Cap 2021-11 11:27: 05 11-16 00:00 :00 No 99mg Take 99 mg by mouth 2 (two) times daily. Take 4 tablets in AM and 4 tablets in the PM. [facility] potassium citrate 99 mg Cap 2021-11 11:27: 11-16 00:00 :00 No 99mg Take 99 mg by mouth 2 (two) times daily. Take 4 tablets in AM and 4 tablets in the PM. [facility] MAGNESIUM CITRATE ORAL 2021-11 11:26: 55 11-16 00:00 :00 No 250mg Take 250 mg by mouth once now. [facility] Magnesium 250 mg Tab 2021-11 11:26: 11-16 00:00 :00 No 500mg Take 500 mg by mouth once now. Take 2 capsules by mouth daily to add up to 500 mg daily [facility] MAGNESIUM CITRATE ORAL 2021-11 11:26: 11-16 00:00 :00 No 250mg Take 250 mg by mouth once now. [facility] Magnesium 250 mg Tab 2021-11 11:26: 55 11-16 00:00 :00 No 500mg Take 500 mg by mouth once now. Take 2 capsules by mouth daily to add up to 500 mg daily [facility] MAGNESIUM CITRATE ORAL 2021-11 11:26: 55 11-16 00:00 :00 No 250mg Take 250 mg by mouth once now. [facility] Magnesium 250 mg Tab 2021-11 11:26: 55 11-16 00:00 :00 No 500mg Take 500 mg by mouth once now. Take 2 capsules by mouth daily to add up to 500 mg daily [facility] Potassium Citrate 5 mEq (540 mg) TbSR 2021-11 00:00: 00 Yes [id number] 15meq Take 15 mEq by mouth 2 (two) times daily with meals. [facility] Potassium Citrate 5 mEq (540 mg) [facility] 2021-11 00:00: 00 Yes [id number] 15meq Take 15 mEq by mouth 2 (two) times daily with meals. [facility] Potassium Citrate 5 mEq (540 mg) [facility] 2021-11 00:00: 00 Yes [id number] 15meq Take 15 mEq by mouth 2 (two) times daily with meals. [facility] Potassium Citrate 5 mEq (540 mg) [facility] 2021-11 00:00: 00 Yes [id number] 15meq Take 15 mEq by mouth 2 (two) times daily with meals. [facility] Pot[facility] Cit[facility] 5 mEq (540 mg) [facility] 2021-11 00:00: 00 Yes [id number] 15meq Take 15 mEq by mouth 2 (two) times daily with meals. [facility] Potassium Citrate 5 mEq (540 mg) [facility] 2021-11 00:00: 00 Yes [id number] 15meq Take 15 mEq by mouth 2 (two) times daily with meals. [facility] Potassium Citrate 5 mEq (540 mg) [facility] 2021-11 00:00: 00 Yes [id number] 15meq Take 15 mEq by mouth 2 (two) times daily with meals. [facility] Potassium Citrate 5 mEq (540 mg) [facility] 2021-11 00:00: 00 Yes [id number] 15meq Take 15 mEq by mouth 2 (two) times daily with meals. [facility] valsartan 160 mg tablet 2021-11 13:33: 46 Yes 160mg Take 160 mg by mouth in the morning and 160 mg in the evening. [facility] mg tablet 2021-11 13:33: 46 Yes 160mg Take 160 mg by mouth in the morning and 160 mg in the evening. [facility] mg tablet 2021-11 13:33: 46 Yes 160mg Take 160 mg by mouth in the morning and 160 mg in the evening. [facility] valsartan 160 mg tablet 2021-11 13:33: 46 Yes 160mg Take 160 mg by mouth in the morning and 160 mg in the evening. [facility] valsartan 160 mg tablet 2021-11 13:33: 46 Yes 160mg Take 160 mg by mouth in the morning and 160 mg in the evening. [facility] valsartan 160 mg tablet 2021-11 13:33: 46 Yes 160mg Take 160 mg by mouth in the morning and 160 mg in the evening. [facility] valsartan 160 mg tablet 2021-11 13:33: 46 Yes 160mg Take 160 mg by mouth in the morning and 160 mg in the evening. [facility] valsartan 160 mg tablet 2021-11 13:33: 46 Yes 160mg Take 160 mg by mouth in the morning and 160 mg in the evening. [facility] valsartan 160 mg tablet 2021-11 13:33: 46 Yes 160mg Take 160 mg by mouth in the morning and 160 mg in the evening. [facility] amLODIPine 10 mg tablet 2021-11 13:33: 45 Yes 5mg Take 5 mg by mouth in the morning. [facility] amLODIPine 10 mg tablet 2021-11 13:33: 45 Yes 5mg Take 5 mg by mouth in the morning. [facility] amLODIPine 10 mg tablet 2021-11 13:33: 45 Yes 5mg Take 5 mg by mouth in the morning. [facility] amLODIPine 10 mg tablet 2021-11 13:33: 45 Yes 5mg Take 5 mg by mouth in the morning. [facility] amLODIPine 10 mg tablet 2021-11 13:33: 45 Yes 5mg Take 5 mg by mouth in the morning. [facility] amLODIPine 10 mg tablet 2021-11 13:33: 45 Yes 5mg Take 5 mg by mouth in the morning. [facility] amLODIPine 10 mg tablet 2021-11 13:33: 45 Yes 5mg Take 5 mg by mouth in the morning. [facility] amLODIPine 10 mg tablet 2021-11 13:33: 45 Yes 5mg Take 5 mg by mouth in the morning. [facility] amLODIPine 10 mg tablet 2021-11 13:33: 45 Yes 5mg Take 5 mg by mouth in the morning. [facility] amLODIPine 10 mg tablet 2021-11 13:33: 45 Yes 5mg Take 5 mg by mouth in the morning. [facility] amLODIPine 10 mg tablet 2021-11 13:33: 45 Yes 5mg Take 5 mg by mouth in the morning. [facility] HYDROCHLORO THIAZIDE 25 mg tablet 2021-11 00:00: 00 Yes [id number] 25mg TAKE 1 TABLET BY MOUTH EVERY MORNING AND EVENING. [facility] HYDROCHLORO THIAZIDE 25 mg tablet 2021-11 00:00: 00 Yes [id number] 25mg TAKE 1 TABLET BY MOUTH EVERY MORNING AND EVENING. [facility] HYDROCHLORO THIAZIDE 25 mg tablet 2021-11 00:00: 00 Yes [id number] 25mg TAKE 1 TABLET BY MOUTH EVERY MORNING AND EVENING. [facility] HYDROCHLORO THIAZIDE 25 mg tablet 2021-11 00:00: 00 Yes [id number] 25mg TAKE 1 TABLET BY MOUTH EVERY MORNING AND EVENING. [facility] HYDROCHLORO THIAZIDE 25 mg tablet 2021-11 00:00: 00 11-16 00:00 :00 No [id number] 25mg TAKE 1 TABLET BY MOUTH EVERY MORNING AND EVENING. [facility] HYDROCHLORO THIAZIDE 25 mg tablet 2021-11 00:00: 00 11-16 00:00 :00 No [id number] 25mg TAKE 1 TABLET BY MOUTH EVERY MORNING AND EVENING. [facility] mirabegron 50 mg tablet - 00:00: 00 Yes [id number] 50mg Take 1 tablet by mouth in the morning. [facility] mirabegron 50 mg tablet 0 08-03 00:00: 00 Yes [id number] 50mg Take 1 tablet by mouth in the morning. [facility] mirabegron 50 mg tablet 2021-0 08-03 00:00: 00 Yes [id number] 50mg Take 1 tablet by mouth in the morning. [facility] mirabegron 50 mg tablet 2-0 08-03 00:00: 00 Yes [id number] 50mg Take 1 tablet by mouth in the morning. [facility] mirabegron 50 mg tablet 2021-0 08-03 00:00: 00 Yes [id number] 50mg Take 1 tablet by mouth in the morning. [facility] mirabegron 50 mg tablet 2021-0 08-03 00:00: 00 Yes [id number] 50mg Take 1 tablet by mouth in the morning. [facility] mirabegron 50 mg tablet 2-0 08-03 00:00: 00 Yes [id number] 50mg Take 1 tablet by mouth in the morning. [facility] mirabegron 50 mg tablet 2021-0 08-03 00:00: 00 Yes [id number] 50mg Take 1 tablet by mouth in the morning. [facility] mirabegron 50 mg tablet 2021-0 08-03 00:00: 00 Yes [id number] 50mg Take 1 tablet by mouth in the morning. [facility] mirabegron 50 mg tablet 2-0 08-03 00:00: 00 Yes [id number] 50mg Take 1 tablet by mouth in the morning. [facility] mirabegron 50 mg tablet 2021-0 08-03 00:00: 00 Yes [id number] 50mg Take 1 tablet by mouth in the morning. [facility] mirabegron 50 mg tablet 2-0 08-03 00:00: 00 Yes [id number] 50mg Take 1 tablet by mouth in the morning. [facility] mirabegron 50 mg tablet 2-0 08-03 00:00: 00 Yes [id number] 50mg Take 1 tablet by mouth in the morning. [facility] mirabegron 50 mg tablet 2021-0 08-03 00:00: 00 Yes [id number] 50mg Take 1 tablet by mouth in the morning. [facility] mirabegron 50 mg tablet 2021-0 08-03 00:00: 00 11-07 00:00 :00 No [id number] 50mg Take 1 tablet by mouth in the morning. [facility] mirabegron 50 mg tablet 2021-0 08-03 00:00: 00 11-07 00:00 :00 No [id number] 50mg Take 1 tablet by mouth in the morning. [facility] potassium citrate 99 mg Cap 05-17 13:52: 03 Yes 99mg Take 99 mg by mouth 2 (two) times daily. Take 4 tablets in AM and 4 tablets in the PM. [facility] multivit-mi ns/iron/fol ic/lycop (CENTRUM MEN ORAL) 05-17 13:52: 03 Yes Take by mouth once now. [facility] potassium citrate 99 mg Cap 05-17 13:52: 03 Yes 99mg Take 99 mg by mouth 2 (two) times daily. Take 4 tablets in AM and 4 tablets in the PM. [facility] multivit-mi ns/iron/fol ic/lycop (CENTRUM MEN ORAL) 05-17 13:52: 03 Yes Take by mouth once now. [facility] potassium citrate 99 mg Cap 0 05-17 13:52: 03 Yes 99mg Take 99 mg by mouth 2 (two) times daily. Take 4 tablets in AM and 4 tablets in the PM. [facility] multivit-mi ns/iron/fol ic/lycop (CENTRUM MEN ORAL) 05-17 13:52: 03 Yes Take by mouth once now. [facility] potassium citrate 99 mg Cap 0 05-17 13:52: 03 Yes 99mg Take 99 mg by mouth 2 (two) times daily. Take 4 tablets in AM and 4 tablets in the PM. [facility] multivit-mi ns/iron/fol ic/lycop (CENTRUM MEN ORAL) 05-17 13:52: 03 Yes Take by mouth once now. [facility] potassium citrate 99 mg Cap 05-17 13:52: 03 Yes 99mg Take 99 mg by mouth 2 (two) times daily. Take 4 tablets in AM and 4 tablets in the PM. [facility] multivit-mi ns/iron/fol ic/lycop (CENTRUM MEN ORAL) 05-17 13:52: 03 Yes Take by mouth once now. [facility] potassium citrate 99 mg Cap 05-17 13:52: 03 Yes 99mg Take 99 mg by mouth 2 (two) times daily. Take 4 tablets in AM and 4 tablets in the PM. [facility] multivit-mi ns/iron/fol ic/lycop (CENTRUM MEN ORAL) 05-17 13:52: 03 Yes Take by mouth once now. [facility] potassium citrate 99 mg Cap 05-17 13:52: 03 Yes 99mg Take 99 mg by mouth 2 (two) times daily. Take 4 tablets in AM and 4 tablets in the PM. [facility] multivit-mi ns/iron/fol ic/lycop (CENTRUM MEN ORAL) 05-17 13:52: 03 Yes Take by mouth once now. [facility] potassium citrate 99 mg Cap 05-17 13:52: 03 Yes 99mg Take 99 mg by mouth 2 (two) times daily. Take 4 tablets in AM and 4 tablets in the PM. [facility] multivit-mi ns/iron/fol ic/lycop (CENTRUM MEN ORAL) 05-17 13:52: 03 Yes Take by mouth once now. [facility] potassium citrate 99 mg Cap 05-17 13:52: 03 Yes 99mg Take 99 mg by mouth 2 (two) times daily. Take 4 tablets in AM and 4 tablets in the PM. [facility] multivit-mi ns/iron/fol ic/lycop (CENTRUM MEN ORAL) 05-17 13:52: 03 Yes Take by mouth once now. [facility] potassium citrate 99 mg Cap 0 05-17 13:52: 03 Yes 99mg Take 99 mg by mouth 2 (two) times daily. Take 4 tablets in AM and 4 tablets in the PM. [facility] multivit-mi ns/iron/fol ic/lycop (CENTRUM MEN ORAL) 05-17 13:52: 03 Yes Take by mouth once now. [facility] potassium citrate 99 mg Cap 2021-0 05-17 13:52: 03 Yes 99mg Take 99 mg by mouth 2 (two) times daily. Take 4 tablets in AM and 4 tablets in the PM. [facility] multivit-mi ns/iron/fol ic/lycop (CENTRUM MEN ORAL) 05-17 13:52: 03 Yes Take by mouth once now. [facility] potassium citrate 99 mg Cap 2021-05-17 13:52: 03 Yes 99mg Take 99 mg by mouth 2 (two) times daily. Take 4 tablets in AM and 4 tablets in the PM. [facility] multivit-mi ns/iron/fol ic/lycop (CENTRUM MEN ORAL) 05-17 13:52: 03 Yes Take by mouth once now. [facility] potassium citrate 99 mg Cap 05-17 13:52: 03 Yes 99mg Take 99 mg by mouth 2 (two) times daily. Take 4 tablets in AM and 4 tablets in the PM. [facility] multivit-mi ns/iron/fol ic/lycop (CENTRUM MEN ORAL) 05-17 13:52: 03 Yes Take by mouth once now. [facility] potassium citrate 99 mg Cap 2021-0 05-17 13:52: 03 Yes 99mg Take 99 mg by mouth 2 (two) times daily. Take 4 tablets in AM and 4 tablets in the PM. [facility] multivit-mi ns/iron/fol ic/lycop (CENTRUM MEN ORAL) 05-17 13:52: 03 Yes Take by mouth once now. [facility] potassium citrate 99 mg Cap 2021-0 05-17 13:52: 03 Yes 99mg Take 99 mg by mouth 2 (two) times daily. Take 4 tablets in AM and 4 tablets in the PM. [facility] multivit-mi ns/iron/fol ic/lycop (CENTRUM MEN ORAL) 05-17 13:52: 03 Yes Take by mouth once now. [facility] multivit-mi ns/iron/fol ic/lycop (CENTRUM MEN ORAL) 05-17 13:52: 03 Yes Take by mouth once now. [facility] multivit-mi ns/iron/fol ic/lycop (CENTRUM MEN ORAL) 05-17 13:52: 03 Yes Take by mouth once now. [facility] multivit-ky ns/iron/fol ic/lycop (CENTRUM MEN ORAL) 05-17 13:52: 03 Yes Take by mouth once now. [facility] multivit-ky ns/iron/fol ic/lycop (CENTRUM MEN ORAL) 05-17 13:52: 03 Yes Take by mouth once now. [facility] multivit-mi ns/iron/fol ic/lycop (CENTRUM MEN ORAL) 05-17 13:52: 03 Yes Take by mouth once now. [facility] multivit-mi ns/iron/fol ic/lycop (CENTRUM MEN ORAL) 05-17 13:52: 03 Yes Take by mouth once now. [facility] multivit-ky ns/iron/fol ic/lycop (CENTRUM MEN ORAL) 05-17 13:52: 03 Yes Take by mouth once now. [facility] multivit-mi ns/iron/fol ic/lycop (CENTRUM MEN ORAL) 05-17 13:52: 03 Yes Take by mouth once now. [facility] multivit-mi ns/iron/fol ic/lycop (CENTRUM MEN ORAL) 05-17 13:52: 03 Yes Take by mouth once now. [facility] multivit-mi ns/iron/fol ic/lycop (CENTRUM MEN ORAL) 05-17 13:52: 03 Yes Take by mouth once now. [facility] Multivitami ns with Fluoride (MULTI-ESTEFANÍA MIN ORAL) 05-17 13:50: 26 05-17 00:00 :00 No 1{tbl} Take 1 tablet by mouth daily. [facility] Magnesium 250 mg Tab 05-17 13:47: 09 Yes 500mg Take 500 mg by mouth once now. Take 2 capsules by mouth daily to add up to 500 mg daily [facility] Magnesium 250 mg Tab 0 05-17 13:47: 09 Yes 500mg Take 500 mg by mouth once now. Take 2 capsules by mouth daily to add up to 500 mg daily [facility] Magnesium 250 mg Tab 0 05-17 13:47: 09 Yes 500mg Take 500 mg by mouth once now. Take 2 capsules by mouth daily to add up to 500 mg daily [facility] Magnesium 250 mg Tab 05-17 13:47: 09 Yes 500mg Take 500 mg by mouth once now. Take 2 capsules by mouth daily to add up to 500 mg daily [facility] Magnesium 250 mg Tab 0 05-17 13:47: 09 Yes 500mg Take 500 mg by mouth once now. Take 2 capsules by mouth daily to add up to 500 mg daily [facility] Magnesium 250 mg Tab 05-17 13:47: 09 Yes 500mg Take 500 mg by mouth once now. Take 2 capsules by mouth daily to add up to 500 mg daily [facility] Magnesium 250 mg Tab 05-17 13:47: 09 Yes 500mg Take 500 mg by mouth once now. Take 2 capsules by mouth daily to add up to 500 mg daily [facility] Magnesium 250 mg Tab 0 05-17 13:47: 09 Yes 500mg Take 500 mg by mouth once now. Take 2 capsules by mouth daily to add up to 500 mg daily [facility] Magnesium 250 mg Tab 0 05-17 13:47: 09 Yes 500mg Take 500 mg by mouth once now. Take 2 capsules by mouth daily to add up to 500 mg daily [facility] Magnesium 250 mg Tab 0 05-17 13:47: 09 Yes 500mg Take 500 mg by mouth once now. Take 2 capsules by mouth daily to add up to 500 mg daily [facility] Magnesium 250 mg Tab 0 05-17 13:47: 09 Yes 500mg Take 500 mg by mouth once now. Take 2 capsules by mouth daily to add up to 500 mg daily [facility] Magnesium 250 mg Tab 0 05-17 13:47: 09 Yes 500mg Take 500 mg by mouth once now. Take 2 capsules by mouth daily to add up to 500 mg daily [facility] Magnesium 250 mg Tab 0 05-17 13:47: 09 Yes 500mg Take 500 mg by mouth once now. Take 2 capsules by mouth daily to add up to 500 mg daily [facility] Magnesium 250 mg Tab 0 05-17 13:47: 09 Yes 500mg Take 500 mg by mouth once now. Take 2 capsules by mouth daily to add up to 500 mg daily [facility] Magnesium 250 mg Tab 0 05-17 13:47: 09 Yes 500mg Take 500 mg by mouth once now. Take 2 capsules by mouth daily to add up to 500 mg daily [facility] MAGNESIUM CITRATE ORAL 0 05-17 13:43: 47 Yes 250mg Take 250 mg by mouth once now. [facility] MAGNESIUM CITRATE ORAL 2021-0 05-17 13:43: 47 Yes 250mg Take 250 mg by mouth once now. [facility] MAGNESIUM CITRATE ORAL 2021-0 05-17 13:43: 47 Yes 250mg Take 250 mg by mouth once now. [facility] MAGNESIUM CITRATE ORAL 2021-0 05-17 13:43: 47 Yes 250mg Take 250 mg by mouth once now. [facility] MAGNESIUM CITRATE ORAL 2021-0 05-17 13:43: 47 Yes 250mg Take 250 mg by mouth once now. [facility] MAGNESIUM CITRATE ORAL 0 05-17 13:43: 47 Yes 250mg Take 250 mg by mouth once now. [facility] MAGNESIUM CITRATE ORAL 2021-0 05-17 13:43: 47 Yes 250mg Take 250 mg by mouth once now. [facility] MAGNESIUM CITRATE ORAL 2021-0 05-17 13:43: 47 Yes 250mg Take 250 mg by mouth once now. [facility] MAGNESIUM CITRATE ORAL 2021-0 05-17 13:43: 47 Yes 250mg Take 250 mg by mouth once now. [facility] MAGNESIUM CITRATE ORAL 2021-0 05-17 13:43: 47 Yes 250mg Take 250 mg by mouth once now. [facility] MAGNESIUM CITRATE ORAL 2021-0 05-17 13:43: 47 Yes 250mg Take 250 mg by mouth once now. [facility] MAGNESIUM CITRATE ORAL 2021-0 05-17 13:43: 47 Yes 250mg Take 250 mg by mouth once now. [facility] MAGNESIUM CITRATE ORAL 0 05-17 13:43: 47 Yes 250mg Take 250 mg by mouth once now. [facility] MAGNESIUM CITRATE ORAL 0 05-17 13:43: 47 Yes 250mg Take 250 mg by mouth once now. [facility] MAGNESIUM CITRATE ORAL 0 05-17 13:43: 47 Yes 250mg Take 250 mg by mouth once now. [facility] hydroCHLORO thiazide 25 mg tablet 0 04-21 00:00: 00 Yes [id number] 25mg Take 1 tablet by mouth every morning and evening. [facility] hydroCHLORO thiazide 25 mg tablet 0 04-21 00:00: 00 Yes [id number] 25mg Take 1 tablet by mouth every morning and evening. [facility] hydroCHLORO thiazide 25 mg tablet 2021-0 04-21 00:00: 00 Yes [id number] 25mg Take 1 tablet by mouth every morning and evening. [facility] hydroCHLORO thiazide 25 mg tablet 2021-0 04-21 00:00: 00 Yes [id number] 25mg Take 1 tablet by mouth every morning and evening. [facility] hydroCHLORO thiazide 25 mg tablet 2021-0 04-21 00:00: 00 Yes [id number] 25mg Take 1 tablet by mouth every morning and evening. [facility] hydroCHLORO thiazide 25 mg tablet 2021-0 04-21 00:00: 00 Yes [id number] 25mg Take 1 tablet by mouth every morning and evening. [facility] hydroCHLORO thiazide 25 mg tablet 0 04-21 00:00: 00 Yes [id number] 25mg Take 1 tablet by mouth every morning and evening. [facility] hydroCHLORO thiazide 25 mg tablet 0 - 00:00: 00 Yes [id number] 25mg Take 1 tablet by mouth every morning and evening. [facility] hydroCHLORO thiazide 25 mg tablet 0 04-21 00:00: 00 Yes [id number] 25mg Take 1 tablet by mouth every morning and evening. [facility] hydroCHLORO thiazide 25 mg tablet 0 04-21 00:00: 00 Yes [id number] 25mg Take 1 tablet by mouth every morning and evening. [facility] hydroCHLORO thiazide 25 mg tablet 0 04-21 00:00: 00 Yes [id number] 25mg Take 1 tablet by mouth every morning and evening. [facility] hydroCHLORO thiazide 25 mg tablet 0 04-21 00:00: 00 10-10 00:00 :00 No [id number] 25mg Take 1 tablet by mouth every morning and evening. [facility] hydroCHLORO thiazide 25 mg tablet 0 04-21 00:00: 00 10-10 00:00 :00 No [id number] 25mg Take 1 tablet by mouth every morning and evening. [facility] aspirin 81 mg chewable tablet 07-26 14:21: 29 Yes 1{tbl} Take 1 tablet by mouth daily. [facility] pravastatin 20 mg tablet 07-26 14:21: 29 Yes 1{tbl} Take 1 tablet by mouth daily. [facility] niacin ER 1,000 mg tablet 07-26 14:21: 29 Yes 1{tbl} Take 1 tablet by mouth daily. [facility] aspirin 81 mg chewable tablet 07-26 14:21: 29 Yes 1{tbl} Take 1 tablet by mouth daily. [facility] pravastatin 20 mg tablet 07-26 14:21: 29 Yes 1{tbl} Take 1 tablet by mouth daily. [facility] niacin ER 1,000 mg tablet 07-26 14:21: 29 Yes 1{tbl} Take 1 tablet by mouth daily. [facility] aspirin 81 mg chewable tablet 07-26 14:21: 29 Yes 1{tbl} Take 1 tablet by mouth daily. [facility] pravastatin 20 mg tablet 07-26 14:21: 29 Yes 1{tbl} Take 1 tablet by mouth daily. [facility] niacin ER 1,000 mg tablet 07-26 14:21: 29 Yes 1{tbl} Take 1 tablet by mouth daily. [facility] aspirin 81 mg chewable tablet 07-26 14:21: 29 Yes 1{tbl} Take 1 tablet by mouth daily. [facility] pravastatin 20 mg tablet 07-26 14:21: 29 Yes 1{tbl} Take 1 tablet by mouth daily. [facility] niacin ER 1,000 mg tablet 07-26 14:21: 29 Yes 1{tbl} Take 1 tablet by mouth daily. [facility] aspirin 81 mg chewable tablet 07-26 14:21: 29 Yes 1{tbl} Take 1 tablet by mouth daily. [facility] pravastatin 20 mg tablet 07-26 14:21: 29 Yes 1{tbl} Take 1 tablet by mouth daily. [facility] niacin ER 1,000 mg tablet 07-26 14:21: 29 Yes 1{tbl} Take 1 tablet by mouth daily. [facility] aspirin 81 mg chewable tablet 07-26 14:21: 29 Yes 1{tbl} Take 1 tablet by mouth daily. [facility] pravastatin 20 mg tablet 07-26 14:21: 29 Yes 1{tbl} Take 1 tablet by mouth daily. [facility] niacin ER 1,000 mg tablet 07-26 14:21: 29 Yes 1{tbl} Take 1 tablet by mouth daily. [facility] aspirin 81 mg chewable tablet 07-26 14:21: 29 Yes 1{tbl} Take 1 tablet by mouth daily. [facility] pravastatin 20 mg tablet 07-26 14:21: 29 Yes 1{tbl} Take 1 tablet by mouth daily. [facility] niacin ER 1,000 mg tablet 07-26 14:21: 29 Yes 1{tbl} Take 1 tablet by mouth daily. [facility] aspirin 81 mg chewable tablet 07-26 14:21: 29 Yes 1{tbl} Take 1 tablet by mouth daily. [facility] pravastatin 20 mg tablet 07-26 14:21: 29 Yes 1{tbl} Take 1 tablet by mouth daily. [facility] niacin ER 1,000 mg tablet 07-26 14:21: 29 Yes 1{tbl} Take 1 tablet by mouth daily. [facility] aspirin 81 mg chewable tablet 07-26 14:21: 29 Yes 1{tbl} Take 1 tablet by mouth daily. [facility] pravastatin 20 mg tablet 07-26 14:21: 29 Yes 1{tbl} Take 1 tablet by mouth daily. [facility] niacin ER 1,000 mg tablet 07-26 14:21: 29 Yes 1{tbl} Take 1 tablet by mouth daily. [facility] aspirin 81 mg chewable tablet 07-26 14:21: 29 Yes 1{tbl} Take 1 tablet by mouth daily. [facility] pravastatin 20 mg tablet 07-26 14:21: 29 Yes 1{tbl} Take 1 tablet by mouth daily. [facility] niacin ER 1,000 mg tablet 07-26 14:21: 29 Yes 1{tbl} Take 1 tablet by mouth daily. [facility] aspirin 81 mg chewable tablet 07-26 14:21: 29 Yes 1{tbl} Take 1 tablet by mouth daily. [facility] pravastatin 20 mg tablet 07-26 14:21: 29 Yes 1{tbl} Take 1 tablet by mouth daily. [facility] niacin ER 1,000 mg tablet 07-26 14:21: 29 Yes 1{tbl} Take 1 tablet by mouth daily. [facility] aspirin 81 mg chewable tablet 07-26 14:21: 29 Yes 1{tbl} Take 1 tablet by mouth daily. [facility] pravastatin 20 mg tablet 07-26 14:21: 29 Yes 1{tbl} Take 1 tablet by mouth daily. [facility] niacin ER 1,000 mg tablet 07-26 14:21: 29 Yes 1{tbl} Take 1 tablet by mouth daily. [facility] aspirin 81 mg chewable tablet 07-26 14:21: 29 Yes 1{tbl} Take 1 tablet by mouth daily. [facility] pravastatin 20 mg tablet 07-26 14:21: 29 Yes 1{tbl} Take 1 tablet by mouth daily. [facility] niacin ER 1,000 mg tablet 07-26 14:21: 29 Yes 1{tbl} Take 1 tablet by mouth daily. [facility] aspirin 81 mg chewable tablet 07-26 14:21: 29 Yes 1{tbl} Take 1 tablet by mouth daily. [facility] pravastatin 20 mg tablet 07-26 14:21: 29 Yes 1{tbl} Take 1 tablet by mouth daily. [facility] niacin ER 1,000 mg tablet 07-26 14:21: 29 Yes 1{tbl} Take 1 tablet by mouth daily. [facility] aspirin 81 mg chewable tablet 07-26 14:21: 29 Yes 1{tbl} Take 1 tablet by mouth daily. [facility] pravastatin 20 mg tablet 07-26 14:21: 29 Yes 1{tbl} Take 1 tablet by mouth daily. [facility] niacin ER 1,000 mg tablet 07-26 14:21: 29 Yes 1{tbl} Take 1 tablet by mouth daily. [facility] aspirin 81 mg chewable tablet 07-26 14:21: 29 Yes 1{tbl} Take 1 tablet by mouth daily. [facility] pravastatin 20 mg tablet 07-26 14:21: 29 Yes 1{tbl} Take 1 tablet by mouth daily. [facility] niacin ER 1,000 mg tablet 07-26 14:21: 29 Yes 1{tbl} Take 1 tablet by mouth daily. [facility] aspirin 81 mg chewable tablet 07-26 14:21: 29 Yes 1{tbl} Take 1 tablet by mouth daily. [facility] pravastatin 20 mg tablet 07-26 14:21: 29 Yes 1{tbl} Take 1 tablet by mouth daily. [facility] niacin ER 1,000 mg tablet 07-26 14:21: 29 Yes 1{tbl} Take 1 tablet by mouth daily. [facility] aspirin 81 mg chewable tablet 07-26 14:21: 29 Yes 1{tbl} Take 1 tablet by mouth daily. [facility] pravastatin 20 mg tablet 07-26 14:21: 29 Yes 1{tbl} Take 1 tablet by mouth daily. [facility] niacin ER 1,000 mg tablet 07-26 14:21: 29 Yes 1{tbl} Take 1 tablet by mouth daily. [facility] aspirin 81 mg chewable tablet 07-26 14:21: 29 Yes 1{tbl} Take 1 tablet by mouth daily. [facility] pravastatin 20 mg tablet 07-26 14:21: 29 Yes 1{tbl} Take 1 tablet by mouth daily. [facility] niacin ER 1,000 mg tablet 07-26 14:21: 29 Yes 1{tbl} Take 1 tablet by mouth daily. [facility] aspirin 81 mg chewable tablet 07-26 14:21: 29 Yes 1{tbl} Take 1 tablet by mouth daily. [facility] pravastatin 20 mg tablet 07-26 14:21: 29 Yes 1{tbl} Take 1 tablet by mouth daily. [facility] niacin ER 1,000 mg tablet 07-26 14:21: 29 Yes 1{tbl} Take 1 tablet by mouth daily. [facility] aspirin 81 mg chewable tablet 07-26 14:21: 29 Yes 1{tbl} Take 1 tablet by mouth daily. [facility] pravastatin 20 mg tablet 07-26 14:21: 29 Yes 1{tbl} Take 1 tablet by mouth daily. [facility] niacin ER 1,000 mg tablet 07-26 14:21: 29 Yes 1{tbl} Take 1 tablet by mouth daily. [facility] aspirin 81 mg chewable tablet 07-26 14:21: 29 Yes 1{tbl} Take 1 tablet by mouth daily. [facility] pravastatin 20 mg tablet 07-26 14:21: 29 Yes 1{tbl} Take 1 tablet by mouth daily. [facility] niacin ER 1,000 mg tablet 07-26 14:21: 29 Yes 1{tbl} Take 1 tablet by mouth daily. [facility] aspirin 81 mg chewable tablet 07-26 14:21: 29 Yes 1{tbl} Take 1 tablet by mouth daily. [facility] pravastatin 20 mg tablet 07-26 14:21: 29 Yes 1{tbl} Take 1 tablet by mouth daily. [facility] niacin ER 1,000 mg tablet 07-26 14:21: 29 Yes 1{tbl} Take 1 tablet by mouth daily. [facility] aspirin 81 mg chewable tablet 07-26 14:21: 29 Yes 1{tbl} Take 1 tablet by mouth daily. [facility] pravastatin 20 mg tablet 07-26 14:21: 29 Yes 1{tbl} Take 1 tablet by mouth daily. [facility] niacin ER 1,000 mg tablet 07-26 14:21: 29 Yes 1{tbl} Take 1 tablet by mouth daily. [facility] aspirin 81 mg chewable tablet 07-26 14:21: 29 Yes 1{tbl} Take 1 tablet by mouth daily. [facility] pravastatin 20 mg tablet 07-26 14:21: 29 Yes 1{tbl} Take 1 tablet by mouth daily. [facility] niacin ER 1,000 mg tablet 07-26 14:21: 29 Yes 1{tbl} Take 1 tablet by mouth daily. [facility] Potassium Citrate 5 mEq (540 mg) [facility] 07-26 00:00: 00 Yes [id number] 5meq Take 5 mEq by mouth 2 (two) times daily with meals. [facility] mirabegron 50 mg tablet 07-26 00:00: 00 Yes [id number] 50mg Take 1 tablet by mouth daily. [facility] Potassium Citrate 5 mEq (540 mg) [facility]: 00 Yes [id number] 5meq Take 5 mEq by mouth 2 (two) times daily with meals. [facility] mirabegron 50 mg tablet 07-26 00:00: 00 Yes [id number] 50mg Take 1 tablet by mouth daily. [facility] Potassium Citrate 5 mEq (540 mg) [facility] 00:[facility]: 00 Yes [id number] 5meq Take 5 mEq by mouth 2 (two) times daily with meals. [facility] mirabegron 50 mg tablet 07-26 00:00: 00 Yes [id number] 50mg Take 1 tablet by mouth daily. [facility] Potassium Citrate 5 mEq (540 mg) [facility] 07-26 00:00: 00 Yes [id number] 5meq Take 5 mEq by mouth 2 (two) times daily with meals. [facility] mirabegron 50 mg tablet 07-26 00:00: 00 Yes [id number] 50mg Take 1 tablet by mouth daily. [facility] Potassium Citrate 5 mEq (540 mg) [facility] 07-26 00:00: 00 Yes [id number] 5meq Take 5 mEq by mouth 2 (two) times daily with meals. [facility] mirabegron 50 mg tablet 07-26 00:00: 00 Yes [id number] 50mg Take 1 tablet by mouth daily. [facility] Potassium Citrate 5 mEq (540 mg) [facility]: 00 Yes [id number] 5meq Take 5 mEq by mouth 2 (two) times daily with meals. [facility] mirabegron 50 mg tablet 07-26 00:00: 00 Yes [id number] 50mg Take 1 tablet by mouth daily. [facility] Potassium Citrate 5 mEq (540 mg) [facility] 00:00: 00 Yes [id number] 5meq Take 5 mEq by mouth 2 (two) times daily with meals. [facility] mirabegron 50 mg tablet 07-26 00:00: 00 Yes [id number] 50mg Take 1 tablet by mouth daily. [facility] Potassium Citrate 5 mEq (540 mg) [facility] 07-26 00:00: 00 Yes [id number] 5meq Take 5 mEq by mouth 2 (two) times daily with meals. [facility] Potassium Citrate 5 mEq (540 mg) [facility] 07[facility] 00:00: 00 Yes [id number] 5meq Take 5 mEq by mouth 2 (two) times daily with meals. [facility] Potassium Citrate 5 mEq (540 mg) [facility] 07-26 00:00: 00 Yes [id number] 5meq Take 5 mEq by mouth 2 (two) times daily with meals. [facility] Potassium Citrate 5 mEq (540 mg) [facility] 07-26 00:00: 00 Yes [id number] 5meq Take 5 mEq by mouth 2 (two) times daily with meals. [facility] Pot[facility] Citrate 5 mEq (540 mg) [facility] 07-26 00:00: 00 Yes [id number] 5meq Take 5 mEq by mouth 2 (two) times daily with meals. [facility] Potassium Citrate 5 mEq (540 mg) [facility] 07-26 00:00: 00 Yes [id number] 5meq Take 5 mEq by mouth 2 (two) times daily with meals. [facility] Potassium Citrate 5 mEq (540 mg) [facility] 07-26 00:00: 00 Yes [id number] 5meq Take 5 mEq by mouth 2 (two) times daily with meals. [facility] Potassium Citrate 5 mEq (540 mg) [facility] 07-26 00:00: 00 Yes [id number] 5meq Take 5 mEq by mouth 2 (two) times daily with meals. [facility] Potassium Citrate 5 mEq (540 mg) [facility] 07-26 00:00: 00 11-16 00:00 :00 No [id number] 5meq Take 5 mEq by mouth 2 (two) times daily with meals. [facility] Potassium Citrate 5 mEq (540 mg) [facility] 07-26 00:00: 00 11-16 00:00 :00 No [id number] 5meq Take 5 mEq by mouth 2 (two) times daily with meals. [facility] Potassium Citrate 5 mEq (540 mg) [facility] 07-26 00:00: 00 11-16 00:00 :00 No [id number] 5meq Take 5 mEq by mouth 2 (two) times daily with meals. [facility] mirabegron 50 mg tablet 07-26 00:00: 00 08-02 00:00 :00 No [id number] 50mg Take 1 tablet by mouth daily. [facility] mirabegron 50 mg tablet 830 00:00: 00 08-02 00:00 :00 No [id number] 50mg Take 1 tablet by mouth daily. [facility] amLODIPine 10 mg tablet 06-09 17:15: 36 Yes 10mg Take 10 mg by mouth daily. [facility] metoprolol succinate XL 100 mg 24 hr tablet 06-09 17:15: 36 Yes 1{tbl} Take 1 tablet by mouth daily. [facility] fenofibrate 145 mg tablet 06-09 17:15: 36 Yes 1{tbl} Take 1 tablet by mouth daily. [facility] amLODIPine 10 mg tablet 06-09 17:15: 36 Yes 10mg Take 10 mg by mouth daily. [facility] metoprolol succinate XL 100 mg 24 hr tablet 06-09 17:15: 36 Yes 1{tbl} Take 1 tablet by mouth daily. [facility] fenofibrate 145 mg tablet 06-09 17:15: 36 Yes 1{tbl} Take 1 tablet by mouth daily. [facility] amLODIPine 10 mg tablet 06-09 17:15: 36 Yes 10mg Take 10 mg by mouth daily. [facility] metoprolol succinate XL 100 mg 24 hr tablet 06-09 17:15: 36 Yes 1{tbl} Take 1 tablet by mouth daily. [facility] fenofibrate 145 mg tablet 06-09 17:15: 36 Yes 1{tbl} Take 1 tablet by mouth daily. [facility] amLODIPine 10 mg tablet 06-09 17:15: 36 Yes 10mg Take 10 mg by mouth daily. [facility] metoprolol succinate XL 100 mg 24 hr tablet 06-09 17:15: 36 Yes 1{tbl} Take 1 tablet by mouth daily. [facility] fenofibrate 145 mg tablet 06-09 17:15: 36 Yes 1{tbl} Take 1 tablet by mouth daily. [facility] amLODIPine 10 mg tablet 06-09 17:15: 36 Yes 10mg Take 10 mg by mouth daily. [facility] metoprolol succinate XL 100 mg 24 hr tablet 06-09 17:15: 36 Yes 1{tbl} Take 1 tablet by mouth daily. [facility] fenofibrate 145 mg tablet 06-09 17:15: 36 Yes 1{tbl} Take 1 tablet by mouth daily. [facility] amLODIPine 10 mg tablet 06-09 17:15: 36 Yes 10mg Take 10 mg by mouth daily. [facility] metoprolol succinate XL 100 mg 24 hr tablet 06-09 17:15: 36 Yes 1{tbl} Take 1 tablet by mouth daily. [facility] fenofibrate 145 mg tablet 06-09 17:15: 36 Yes 1{tbl} Take 1 tablet by mouth daily. [facility] amLODIPine 10 mg tablet 06-09 17:15: 36 Yes 10mg Take 10 mg by mouth daily. [facility] metoprolol succinate XL 100 mg 24 hr tablet 06-09 17:15: 36 Yes 1{tbl} Take 1 tablet by mouth daily. [facility] fenofibrate 145 mg tablet 06-09 17:15: 36 Yes 1{tbl} Take 1 tablet by mouth daily. [facility] amLODIPine 10 mg tablet 06-09 17:15: 36 Yes 10mg Take 10 mg by mouth daily. [facility] metoprolol succinate XL 100 mg 24 hr tablet 06-09 17:15: 36 Yes 1{tbl} Take 1 tablet by mouth daily. [facility] fenofibrate 145 mg tablet 06-09 17:15: 36 Yes 1{tbl} Take 1 tablet by mouth daily. [facility] amLODIPine 10 mg tablet 06-09 17:15: 36 Yes 10mg Take 10 mg by mouth daily. [facility] metoprolol succinate XL 100 mg 24 hr tablet 06-09 17:15: 36 Yes 1{tbl} Take 1 tablet by mouth daily. [facility] fenofibrate 145 mg tablet 06-09 17:15: 36 Yes 1{tbl} Take 1 tablet by mouth daily. [facility] amLODIPine 10 mg tablet 06-09 17:15: 36 Yes 10mg Take 10 mg by mouth daily. [facility] metoprolol succinate XL 100 mg 24 hr tablet 06-09 17:15: 36 Yes 1{tbl} Take 1 tablet by mouth daily. [facility] fenofibrate 145 mg tablet 06-09 17:15: 36 Yes 1{tbl} Take 1 tablet by mouth daily. [facility] amLODIPine 10 mg tablet 06-09 17:15: 36 Yes 10mg Take 10 mg by mouth daily. [facility] metoprolol succinate XL 100 mg 24 hr tablet 06-09 17:15: 36 Yes 1{tbl} Take 1 tablet by mouth daily. [facility] fenofibrate 145 mg tablet 06-09 17:15: 36 Yes 1{tbl} Take 1 tablet by mouth daily. [facility] amLODIPine 10 mg tablet 06-09 17:15: 36 Yes 10mg Take 10 mg by mouth daily. [facility] metoprolol succinate XL 100 mg 24 hr tablet 06-09 17:15: 36 Yes 1{tbl} Take 1 tablet by mouth daily. [facility] fenofibrate 145 mg tablet 06-09 17:15: 36 Yes 1{tbl} Take 1 tablet by mouth daily. [facility] amLODIPine 10 mg tablet 06-09 17:15: 36 Yes 10mg Take 10 mg by mouth daily. [facility] metoprolol succinate XL 100 mg 24 hr tablet 06-09 17:15: 36 Yes 1{tbl} Take 1 tablet by mouth daily. [facility] fenofibrate 145 mg tablet 06-09 17:15: 36 Yes 1{tbl} Take 1 tablet by mouth daily. [facility] amLODIPine 10 mg tablet 06-09 17:15: 36 Yes 10mg Take 10 mg by mouth daily. [facility] metoprolol succinate XL 100 mg 24 hr tablet 06-09 17:15: 36 Yes 1{tbl} Take 1 tablet by mouth daily. [facility] fenofibrate 145 mg tablet 06-09 17:15: 36 Yes 1{tbl} Take 1 tablet by mouth daily. [facility] metoprolol succinate XL 100 mg 24 hr tablet 06-09 17:15: 36 Yes 1{tbl} Take 1 tablet by mouth daily. [facility] fenofibrate 145 mg tablet 06-09 17:15: 36 Yes 1{tbl} Take 1 tablet by mouth daily. [facility] metoprolol succinate XL 100 mg 24 hr tablet 06-09 17:15: 36 Yes 1{tbl} Take 1 tablet by mouth daily. [facility] fenofibrate 145 mg tablet 06-09 17:15: 36 Yes 1{tbl} Take 1 tablet by mouth daily. [facility] metoprolol succinate XL 100 mg 24 hr tablet 06-09 17:15: 36 Yes 1{tbl} Take 1 tablet by mouth daily. [facility] fenofibrate 145 mg tablet 06-09 17:15: 36 Yes 1{tbl} Take 1 tablet by mouth daily. [facility] metoprolol succinate XL 100 mg 24 hr tablet 06-09 17:15: 36 Yes 1{tbl} Take 1 tablet by mouth daily. [facility] fenofibrate 145 mg tablet 06-09 17:15: 36 Yes 1{tbl} Take 1 tablet by mouth daily. [facility] metoprolol succinate XL 100 mg 24 hr tablet 06-09 17:15: 36 Yes 1{tbl} Take 1 tablet by mouth daily. [facility] fenofibrate 145 mg tablet 06-09 17:15: 36 Yes 1{tbl} Take 1 tablet by mouth daily. [facility] metoprolol succinate XL 100 mg 24 hr tablet 06-09 17:15: 36 Yes 1{tbl} Take 1 tablet by mouth daily. [facility] fenofibrate 145 mg tablet 06-09 17:15: 36 Yes 1{tbl} Take 1 tablet by mouth daily. [facility] metoprolol succinate XL 100 mg 24 hr tablet 06-09 17:15: 36 Yes 1{tbl} Take 1 tablet by mouth daily. [facility] fenofibrate 145 mg tablet 06-09 17:15: 36 Yes 1{tbl} Take 1 tablet by mouth daily. [facility] metoprolol succinate XL 100 mg 24 hr tablet 06-09 17:15: 36 Yes 1{tbl} Take 1 tablet by mouth daily. [facility] fenofibrate 145 mg tablet 06-09 17:15: 36 Yes 1{tbl} Take 1 tablet by mouth daily. [facility] metoprolol succinate XL 100 mg 24 hr tablet 06-09 17:15: 36 Yes 1{tbl} Take 1 tablet by mouth daily. [facility] fenofibrate 145 mg tablet 06-09 17:15: 36 Yes 1{tbl} Take 1 tablet by mouth daily. [facility] metoprolol succinate XL 100 mg 24 hr tablet 06-09 17:15: 36 Yes 1{tbl} Take 1 tablet by mouth daily. [facility] fenofibrate 145 mg tablet 06-09 17:15: 36 Yes 1{tbl} Take 1 tablet by mouth daily. [facility] metoprolol succinate XL 100 mg 24 hr tablet 06-09 17:15: 36 Yes 1{tbl} Take 1 tablet by mouth daily. [facility] fenofibrate 145 mg tablet 2021-0 7-14 17:15: 36 Yes 1{tbl} Take 1 tablet by mouth daily. [facility] tamsulosin 0.4 mg 24 hr capsule 2020-0 3-10 00:00: 00 Yes .4mg Take 0.4 mg by mouth daily. [facility] tamsulosin 0.4 mg 24 hr capsule 2020-0 3-10 00:00: 00 Yes .4mg Take 0.4 mg by mouth daily. [facility] tams[facility] 0.4 mg 24 hr capsule 2020-0 3-10 00:00: 00 Yes .4mg Take 0.4 mg by mouth daily. [facility] tamsulosin 0.4 mg 24 hr capsule 2020-0 3-10 00:00: 00 Yes .4mg Take 0.4 mg by mouth daily. [facility] tamsulosin 0.4 mg 24 hr capsule 2020-0 3-10 00:00: 00 Yes .4mg Take 0.4 mg by mouth daily. [facility] tamsulosin 0.4 mg 24 hr capsule 2020-0 3-10 00:00: 00 Yes .4mg Take 0.4 mg by mouth daily. [facility] tamsulosin 0.4 mg 24 hr capsule 2020-0 3-10 00:00: 00 Yes .4mg Take 0.4 mg by mouth daily. [facility] tamsulosin 0.4 mg 24 hr capsule 2020-0 3-10 00:00: 00 Yes .4mg Take 0.4 mg by mouth daily. [facility] tamsulosin 0.4 mg 24 hr capsule 2020-0 3-10 00:00: 00 Yes .4mg Take 0.4 mg by mouth daily. [facility] tamsulosin 0.4 mg 24 hr capsule 2020-0 3-10 00:00: 00 Yes .4mg Take 0.4 mg by mouth daily. [facility] tamsulosin 0.4 mg 24 hr capsule 2020-0 3-10 00:00: 00 Yes .4mg Take 0.4 mg by mouth daily. [facility] tamsulosin 0.4 mg 24 hr capsule 1-0 3-10 00:00: 00 Yes .4mg Take 0.4 mg by mouth daily. [facility] tamsulosin 0.4 mg 24 hr capsule 1-0 3-10 00:00: 00 Yes .4mg Take 0.4 mg by mouth daily. [facility] tamsulosin 0.4 mg 24 hr capsule 1-0 3-10 00:00: 00 Yes .4mg Take 0.4 mg by mouth daily. [facility] tamsulosin 0.4 mg 24 hr capsule 1-0 3-10 00:00: 00 Yes .4mg Take 0.4 mg by mouth daily. [facility] tamsulosin 0.4 mg 24 hr capsule 1-0 3-10 00:00: 00 Yes .4mg Take 0.4 mg by mouth daily. [facility] tamsulosin 0.4 mg 24 hr capsule 2020-0 3-10 00:00: 00 Yes .4mg Take 0.4 mg by mouth daily. [facility] tamsulosin 0.4 mg 24 hr capsule 2020-0 3-10 00:00: 00 Yes .4mg Take 0.4 mg by mouth daily. [facility] tamsulosin 0.4 mg 24 hr capsule 2020-0 3-10 00:00: 00 Yes .4mg Take 0.4 mg by mouth daily. [facility] tamsulosin 0.4 mg 24 hr capsule 2020-0 3-10 00:00: 00 Yes .4mg Take 0.4 mg by mouth daily. [facility] tamsulosin 0.4 mg 24 hr capsule 2020-0 3-10 00:00: 00 Yes .4mg Take 0.4 mg by mouth daily. [facility] tamsulosin 0.4 mg 24 hr capsule 2020-0 3-10 00:00: 00 Yes .4mg Take 0.4 mg by mouth daily. [facility] tamsulosin 0.4 mg 24 hr capsule 1-0 3-10 00:00: 00 Yes .4mg Take 0.4 mg by mouth daily. [facility] tamsulosin 0.4 mg 24 hr capsule 02-03 00:00: 00 Yes .4mg Take 0.4 mg by mouth daily. [facility] tamsulosin 0.4 mg 24 hr capsule 02-03 00:00: 00 Yes .4mg Take 0.4 mg by mouth daily. [facility] Vital Signs Vital Name Observation Time Observation Value Comments S ource Systolic blood pressure 2023-11-07 21:07:00 173 mm[Hg] [facility] Diastolic blood pressure 2023-11-07 21:07:00 80 mm[Hg] [facility] Heart rate 2023-11-07 21:05:00 59 /min Unive [facility] Body temperature 2023-11-07 21:05:00 36.67 Celina [facility] Body height 2023-11-07 21:05:00 180.3 cm [facility] Body weight 2023-11-07 21:05:00 113.399 kg [facility] BMI 2023-11-07 21:05:00 34.87 kg/m2 [facility] Oxygen saturation in Arterial blood by Pulse oximetry 2023-11-07 21:05:00 98 /min [facility] Systolic blood pressure 2022-11-15 19:37:00 160 mm[Hg] [facility] Diastolic blood pressure 2022-11-15 19:37:00 82 mm[Hg] [facility] Heart rate 2022-11-15 19:33:00 69 /min Unive [facility] Body temperature 2022-11-15 19:33:00 36.67 Celina [facility] Body height 2022-11-15 19:33:00 180.3 cm [facility] Body weight 2022-11-15 19:33:00 114.306 kg [facility] BMI 2022-11-15 19:33:00 35.15 kg/m2 [facility] Systolic blood pressure 2022-05-17 18:36:00 160 mm[Hg] [facility] Diastolic blood pressure 2022-05-17 18:36:00 85 mm[Hg] [facility] Heart rate 2022-05-17 18:36:00 70 /min [facility] Body temperature 2022-05-17 18:36:00 36.44 Celina [facility] Respiratory rate 2022-05-17 18:36:00 18 /min [facility] Body height 2022-05-17 18:36:00 180.3 cm [facility] Body weight 2022-05-17 18:36:00 114.987 kg [facility] BMI 2022-05-17 18:36:00 35.36 kg/m2 [facility] Procedures Procedure Date / Time Performed Performing Clinicia n Source XR KUB 2023-11-07 21:42:09 Karl Paul [facility] ASSIGNMENT OF BENEFITS 2023-04-12 13:09:17 Docto r Unassigned, Jeddo [facility] IONIZED CALCIUM 2022-11-09 15:18:00 June Vines [facility] COMP. METABOLIC PANEL (24455) 2022-11-09 15:18:00 June Vines [facility] PHYSICIAN ORDERS 2022-11-09 06:01:00 Doctor Unas signed, Jeddo [facility] PHYSICIAN ORDERS 2022-08-29 05:01:00 Doctor Unas signed, Jeddo [facility] PHYSICIAN ORDERS 2022-07-27 05:01:00 Doctor Unas signed, Jeddo [facility] CONSENT/REFUSAL FOR DIAGNOSIS AND TREATMENT 2022-07-12 13:44:08 Doctor Unassigned, Jeddo [facility] ASSIGNMENT OF BENEFITS 2022-07-12 13:43:49 Docto r Unassigned, Jeddo [facility] ASSIGNMENT OF BENEFITS 2022-06-08 15:14:31 Docto r Unassigned, Jeddo [facility] Encounters Start Date/Time End Date/Time Encounter Type Admission Type Attending [facility] Care Facility Care Department Encounter ID Source 2021-09-27 07:33:50 Emergency [facility] [id number] [facility] 2023-11-07 15:24:56 2023-11-07 23:59:00 Outpatient R [facility] [id number] [facility] 2023-11-07 15:24:56 2023-11-07 23:59:[address] [facility] 1.2.840.114 350.1.13.10 4.2.7.2.686 [id number] [facility] 2023-11-07 14:30:00 2023-11-07 14:45:[address] [facility] 1.2.840.114 350.1.13.10 4.2.7.2.686 [id number] [facility] 2023-11-06 08:45:00 2023-11-06 09:00:00 Network Technical Analyst Visit Asad, Adc Lab Main [facility] 1.2.840.114 350.1.13.10 4.2.7.2.686 [id number] [facility] 2023-11-06 08:45:00 2023-11-06 08:45:00 Outpatient CHARLIE BENTLEY [facility] [id number] [facility] 2023-08-16 12:36:32 2023-08-16 23:59:00 Outpatient [facility] [id number] MD Ray mackenzie 2023-04-12 08:15:00 2023-04-12 08:30:00 Network Technical Analyst Visit Pomikayla, Adc Lab Main Charlie Schwarz [facility] 1.2.840.114 350.1.13.10 4.2.7.2.686 [id number] [facility] 2023-04-12 08:15:00 2023-04-12 08:15:00 Outpatient CHARLIE BENTLEY [facility] [id number] [facility] 2023-04-12 00:00:00 2023-04-12 00:00:00 Orders Only Doctor Unassigned, Jeddo [facility] 1..114 350.1.13.10 4.2.7.2.686 [id number] [facility] 2022-11-15 14:37:55 2022-11-15 23:59:[address] [facility] 1..114 350.1.13.10 4.2.7.2.686 [id number] [facility] 2022-11-15 13:45:00 2022-11-15 14:34:31 Outpatient [facility] [id number] [facility] 2022-11-15 13:45:00 2022-11-15 14:34:[address] [facility] 1.114 350.1.13.10 4.2.7.2.686 [id number] [facility] 2022-11-09 09:15:00 2022-11-09 09:30:00 Network Technical Analyst Visit Pob, Adc Lab Main June Vines [facility] 1..114 350.1.13.10 4.2.7.2.686 [id number] [facility] 2022-11-09 09:15:00 2022-11-09 09:15:00 Outpatient R JUNE VINES [facility] [id number] [facility] 2022-11-09 00:00:00 2022-11-09 00:00:00 Orders Only Doctor Unassigned, Jeddo [facility] 1.2.114 350.1.13.10 4.2.7.2.686 [id number] [facility] 2022-10-10 00:00:00 2022-10-10 00:00:00 [facility] 1.20.114 350.1.13.10 4.2.7.2.686 [id number] [facility] 2022-09-13 00:00:00 2022-09-13 00:00:00 [facility] 1.20.114 350.1.13.10 4.2.7.2.686 [id number] [facility] 2022-08-29 07:45:00 2022-08-29 08:00:00 Network Technical Analyst Visit Pob, Adc Lab Main Beatris Enamorado [facility] 1.2.114 350.1.13.10 4.2.7.2.686 [id number] [facility] 2022-08-29 07:45:00 2022-08-29 07:45:00 Outpatient BEATRIS LLOYD [facility] [id number] [facility] 2022-08-29 00:00:00 2022-08-29 00:00:00 Orders Only Doctor Unassigned, Jeddo [facility] 1.2.114 350.1.13.10 4.2.7.2.686 [id number] [facility] 2022-08-09 11:27:53 2022-08-09 23:59:00 Outpatient MERY JOSEPH MDA [id number] MD Ray mackenzie 2022-08-09 13:02:06 2022-08-09 14:17:13 Outpatient KIMO SAUCEDA MDA, MDA [id number] MD Ray mackenzie 2022-08-02 00:00:00 2022-08-02 00:00:00 [facility] 1.2.114 350.1.13.10 4.2.7.2.686 [id number] [facility] 2022-07-27 10:15:00 2022-07-27 10:30:00 Network Technical Analyst Visit Pob, Adc Lab Main Sergio [facility] BUILDING 1..840.114 350.1.13.10 4.2.7.2.686 [id number] [facility] 2022-07-27 10:15:00 2022-07-27 10:15:00 Outpatient R BEATRIS ENAMORADO [facility] [id number] [facility] 2022-07-27 00:00:00 2022-07-27 00:00:00 Orders Only Doctor Unassigned, Jeddo [facility] 1..840.114 350.1.13.10 4.2.7.2.686 [id number] [facility] 2022-07-12 08:45:00 2022-07-12 09:00:00 Network Technical Analyst Visit Po, Adc Lab Main [facility] 1..840.114 350.1.13.10 4.2.7.2.686 [id number] [facility] 2022-07-12 08:45:00 2022-07-12 08:45:[address] [facility] [id number] [facility] 2022-07-12 00:00:00 2022-07-12 00:00:00 Orders Only Doctor Unassigned, Jeddo [facility] 1.2840.114 350.1.13.10 4.2.7.2.686 [id number] [facility] 2022-07-06 15:30:00 2022-07-06 15:30:00 Outpatient CHARLEEN BRADEN [facility] [id number] [facility] 2022-06-08 11:15:00 2022-06-08 11:30:00 Network Technical Analyst Visit Pob, Adc Lab Main [facility] 1.2840.114 350.1.13.10 4.2.7.2.686 [id number] [facility] 2022-06-08 11:15:00 2022-06-08 11:15:00 Outpatient CHARLIE BENTLEY [facility] [id number] [facility] 2022-06-08 00:00:00 2022-06-08 00:00:00 Orders Only Doctor Unassigned, Jeddo [facility] 1.2.840.114 350.1.13.10 4.2.7.2.686 [id number] [facility] 2022-05-18 00:00:00 2022-05-18 00:00:[address] [facility] 1.2840.114 350.1.13.10 4.2.7.2.686 [id number] [facility] 2022-05-17 14:57:47 2022-05-17 23:59:[address] [facility] 1.2840.114 350.1.13.10 4.2.7.2.686 [id number] [facility] 2022-05-17 14:57:47 2022-05-17 23:59:00 Outpatient KARL GOODMAN [facility] [id number] [facility] 2022-05-17 15:30:00 2022-05-17 15:45:00 Network Technical Analyst Visit [facility] 1.2840.114 350.1.13.10 4.2.7.2.686 [id number] [facility] 2022-05-17 13:30:00 2022-05-17 14:41:17 Outpatient Gil PAUL [facility] [id number] [facility] 2022-05-17 13:30:00 2022-05-17 14:41:[address] [facility] 1..114 350.1.13.10 4.2.7.2.686 [id number] [facility] 2022-05-05 12:28:00 2022-05-05 18:22:00 Emergency Ty, Kirsten [facility] 1..114 350.1.13.10 4.2.7.2.686 [id number] [facility] 2022-05-05 09:00:00 2022-05-05 09:15:00 Network Technical Analyst Visit Asad, Mira Lab [facility] 1..114 350.1.13.10 4.2.7.2.686 [id number] [facility] 2022-05-05 09:00:00 2022-05-05 09:00:00 Outpatient [facility]ITESH [facility] [id number] [facility] 2022-05-05 09:00:00 2022-05-05 09:00:00 [facility] [id number] [facility] 2022-05-05 00:00:00 2022-05-05 00:00:[address] [facility] 1.114 350.1.13.10 4.2.7.2.686 [id number] [facility] 2022-05-05 00:00:00 2022-05-05 00:00:00 Orders Only Doctor Unassigned, Jeddo [facility] 1.114 350.1.13.10 4.2.7.2.686 [id number] [facility] 2022-04-21 08:30:00 2022-04-21 08:45:00 Network Technical Analyst Visit Mira Kamara Lab [facility] BUILDING 1.2840.114 350.1.13.10 4.2.7.2.686 [id number] [facility] 2022-04-21 08:30:00 2022-04-21 08:30:00 Outpatient KARL GOODMAN [facility] [id number] [facility] 2022-04-21 08:30:00 2022-04-21 08:30:00 Outpatient KARL GOODMAN [facility] [id number] [facility] 2022-04-21 00:00:00 2022-04-21 00:00:00 Letter (Out) Doctor Unassigned, Jeddo [facility] 1.2.840.114 350.1.13.10 4.2.7.2.686 [id number] [facility] 2022-04-21 00:00:00 2022-04-21 00:00:00 Telephone [facility] MEDICAL OFFICE BUILDING 1.2840.114 350.1.13.10 4.2.7.2.686 [id number] [facility] 2022-04-21 00:00:00 2022-04-21 00:00:[address] [facility] 1.2.840.114 350.1.13.10 4.2.7.2.686 [id number] [facility] 2022-04-13 00:00:00 2022-04-13 00:00:[address] [facility] 1.2.840.114 350.1.13.10 4.2.7.2.686 [id number] [facility] 2022-01-25 00:00:00 2022-01-25 00:00:00 Telephone [facility] MEDICAL OFFICE BUILDING 1.2840.114 350.1.13.10 4.2.7.2.686 [id number] [facility] 2022-01-17 14:15:00 2022-01-17 14:30:00 Network Technical Analyst Visit Po, Adc Lab [facility] 1.2840.114 350.1.13.10 4.2.7.2.686 [id number] [facility] 2022-01-17 14:15:00 2022-01-17 14:15:00 Outpatient [facility] [id number] [facility] 2022-01-17 00:00:00 2022-01-17 00:00:00 Orders Only Doctor Unassigned, Jeddo [facility] 1.20.114 350.1.13.10 4.2.7.2.686 [id number] [facility] 2022-01-14 00:00:00 2022-01-14 00:00:00 [facility] 1.20.114 350.1.13.10 4.2.7.2.686 [id number] [facility] 2022-01-03 11:30:00 2022-01-03 11:45:00 Network Technical Analyst Visit [facility] Lab [facility] 1.284.114 350.1.13.10 4.2.7.2.686 [id number] [facility] 2022-01-03 11:30:00 2022-01-03 11:30:00 Outpatient R [facility] [id number] [facility] 2022-01-03 00:00:00 2022-01-03 00:00:00 Orders Only Doctor Unassigned, Jeddo [facility] 1.20.114 350.1.13.10 4.2.7.2.686 [id number] [facility] 2021 00:00:00 2021 00:00:[address] [facility] 1.2.840.114 350.1.13.10 4.2.7.2.686 [id number] [facility] 2021-11-02 15:04:09 2021-11-02 23:59:[address] [facility] 1.2840.114 350.1.13.10 4.2.7.2.686 [id number] [facility] 2021-11-02 14:30:00 2021-11-02 14:59:56 Outpatient R [facility] [id number] [facility] 2021-11-02 14:30:00 2021-11-02 14:59:56 [facility] [id number] 2021-11-02 14:30:00 2021-11-02 14:59:[address] [facility] 1.2.840.114 350.1.13.10 4.2.7.2.686 [id number] [facility] 2021-11-02 14:30:00 2021-11-02 14:59:56 Outpatient R [facility] [id number] [facility] 2021-08-04 10:16:32 2021-08-04 23:59:00 Outpatient SARAH PAL MDA, MDA [id number] MD Ray mackenzie 2021-08-03 14:52:50 2021-08-03 15:00:59 Outpatient SARAH PAL MDA, MDA [id number] MD Ray mackenzie 2021-07-29 00:00:00 2021-07-29 00:00:00 [facility] 1.2.840.114 350.1.13.10 4.2.7.2.686 [id number] [facility] 2021-07-26 13:58:07 2021-07-26 16:24:04 Office Visit Humberto [facility] 1.114 350.1.13.10 4.2.7.2.686 [id number] [facility] 2021-07-26 14:00:00 2021-07-26 14:00:00 [facility] [id number] 2021-07-07 08:54:05 2021-07-07 09:09:05 Network Technical Analyst Visit Pob, Adc Lab Main [facility] 1..114 350.1.13.10 4.2.7.2.686 [id number] [facility] 2021-07-07 08:45:00 2021-07-07 08:45:00 Outpatient R [facility] [id number] [facility] 2021-07-07 00:00:00 2021-07-07 00:00:00 Orders Only Doctor Unassigned, Jeddo [facility] 1.114 350.1.13.10 4.2.7.2.686 [id number] [facility] 2021-07-06 00:00:00 2021-07-06 00:00:[address] [facility] 1..114 350.1.13.10 4.2.7.2.686 [id number] [facility] 2021-07-02 00:00:00 2021-07-02 00:00:[address] [facility] 1..114 350.1.13.10 4.2.7.2.686 [id number] [facility] 2021-06-25 12:23:29 2021-06-25 12:38:29 Network Technical Analyst Visit [facility] Humberto [facility] 1.2.840.114 350.1.13.10 4.2.7.2.686 [id number] [facility] 2021-06-25 10:46:42 2021-06-25 12:22:34 [facility] 1.2.840.114 350.1.13.10 4.2.7.2.686 [id number] [facility] 2021-06-25 10:30:00 2021-06-25 10:30:00 Outpatient R [facility] [id number] [facility] 2021-06-14 00:00:00 2021-06-14 00:00:00 Orders Only Doctor Unassigned, Jeddo [facility] 1.2.840.114 350.1.13.10 4.2.7.2.686 [id number] [facility] 2021-06-10 00:00:00 2021-06-10 00:00:00 Transition of Care Skylar Marquez 1.2.840.114 350.1.13.10 4.2.7.2.686 [id number] [facility] 2021-06-07 14:17:00 2021-06-09 16:00:00 Emergency [facility] 1.2.840.114 350.1.13.10 4.2.7.2.686 [id number] [facility] 2021-06-07 18:00:00 2021-06-07 19:28:00 Surgery [facility] 1.2.840.114 350.1.13.10 4.2.7.2.686 [id number] [facility] 2021-06-07 08:13:38 2021-06-07 13:26:47 [facility] 1.2.840.114 350.1.13.10 4.2.7.2.686 [id number] [facility] 2021-06-07 11:00:00 2021-06-07 11:00:00 Outpatient [facility] [id number] [facility] 2021-06-07 05:40:00 2021-06-07 07:06:00 [facility] 1.2.840.114 350.1.13.10 4.2.7.2.686 [id number] [facility] 2021-06-07 05:40:00 2021-06-07 05:40:00 [facility] ERT [id number] [facility] 2021-06-06 21:23:00 2021-06-07 00:04:00 [facility] 1.2.840.114 350.1.13.10 4.2.7.2.686 [id number] [facility] 2021-06-07 00:00:00 2021-06-07 00:00:[address] [facility] 1.2.840.114 350.1.13.10 4.2.7.2.686 [id number] [facility] 2021-06-07 00:00:00 2021-06-07 00:00:00 [facility] 1.2.840.114 350.1.13.10 4.2.7.2.686 [id number] [facility] 2021-06-06 21:23:00 2021-06-06 21:23:00 Emergency X PAYAM KRUSE [facility] ERT [id number] [facility] 2021-06-06 00:00:00 2021-06-06 00:00:00 Orders Only Doctor Unassigned, Jeddo [facility] 1.2.840.114 350.1.13.10 4.2.7.2.686 [id number] [facility] 2021-06-05 14:39:00 2021-06-05 15:53:00 Emergency Lore Love [facility] 1.2840.114 350.1.13.10 4.2.7.2.686 [id number] [facility] 2021-06-05 14:35:00 2021-06-05 14:35:00 Emergency X [facility] ERT [id number] [facility] 2021-06-04 16:27:00 2021-06-04 22:23:00 Emergency Kirsten Crawford [facility] 1.2840.114 350.1.13.10 4.2.7.2.686 [id number] [facility] 2021-06-04 16:21:00 2021-06-04 16:21:00 Emergency X [facility] ERT [id number] [facility] 2021-06-04 00:00:00 2021-06-04 00:00:00 Telephone Karl Paul [facility] 1.2.840.114 350.1.13.10 4.2.7.2.686 [id number] [facility] Results Test Description Test Time Test Comments Results Result Co mments Source [facility] (81193)2022-11-09 16:56:52* Test Item Value Reference Range Interpretation Comme nts NA (test code = 6882297329) 140 mmol/L 135-145 K (test code = 2840247288) 3.8 mmol/L 3.5-5.0 CL (test code = 5984661610) 106 mmol/L 98-108 CO2 TOTAL (test code = 5502237554) 27 mmol/L 23-31 AGAP (test code = 8969321552) 2-16 BUN (test code = 3157873560) 20 mg/dL 7-23 GLUCOSE (test code = 4206435150) 135 mg/dL 70-110 H CREATININE (test code = 2329163035) 1.05 mg/dL 0.60-1.25 TOTAL BILI (test code = 3313743572) 0.5 mg/dL 0.1-1.1 CALCIUM (test code = 9009026727) 10.1 mg/dL 8.6-10.6 T PROTEIN (test code = 7260932470) 6.8 g/dL 6.3-8.2 ALBUMIN (test code = 2113489974) 4.3 g/dL 3.5-5.0 ALK PHOS (test code = 4246158759) 46 U/L 34-122 ALTv (test code = 1742-6) 37 U/L 5-50 AST(SGOT) (test code = 4513149554) 29 U/L 13-40 eGFR (test code = 6920799466) mL/min/1.73m2 RICK (test code = RICK) Association of Glomerular Filtration Rate (GFR) and Staging of Kidney Disease* + --+ --+ ------+| GFR (mL/min/1.73 m2) ?| With Kidney Damage ?| ?Without Kidney Damage+ --------+ --------+ +| ?>90 ?| ?Stage one ?| ? Normal ?+ ---+ ---+ -------+| ?60-89 ?| ?Stage two ?| ? Decreased GFR ? + --+ --+ ------+| ?30-59 ?| ?Stage three ?| ? Stage three ? + --+ --+ ------+| ?15-29 ?| ?Stage four ? | ? Stage four ?+ ---+ ---+ -------+| ?<15 (or dialysis) ? ?| ?Stage five ? | ? Stage five ?+ ---+ ---+ -------+ *Each stage assumes the associated GFR level has been in effect for at least three months. ?Stages 1 to 5, with or without kidney disease, indicate chronic kidney disease. Notes: Determination of stages one and two (with eGFR >59mL/min/1.73 m2) requires estimation of kidney damage for at least three months as defined by structural or functional abnormalities of the kidney, manifested by either:Pathological abnormalities or Markers of kidney damage (including abnormalities in the composition of the blood or urine or abnormalities in imaging tests). Lab Interpretation (test code = 81795-3) Abnormal [facility]"
--- NOTE | 2024-02-08 16:31 | RAD REPORT ---
EXAM DESCRIPTION: RAD - Elbow Right 3 View - 02/08/2024 4:20 pm CLINICAL HISTORY: fall Fall, trauma COMPARISON: <Comparisons> FINDINGS: Soft tissue swelling is seen in the region of the olecranon bursa. No acute fracture or di slocation.
--- NOTE | 2024-02-08 16:36 | ER ---
Nurse's Notes [facility] Name: Winston Castro Age: 68 yrs Sex: Male : 1955 Arrival Date: 02/08/2024 Time: 15:21 Bed DX4 Private MD: Diagnosis: Traumatic Bursitis Presentation: 02/07 15:50 Chief complaint: Patient states: fell today, injured right elbow , also injured his iw nose , no LOC, no on blood thinner. Coronavirus screen: At this time, the client does not indicate any symptoms associated with coronavirus-19. Ebola Screen: No symptoms or risks identified at this time. Initial Sepsis Screen: Does the patient meet any 2 criteria? No. Patient's initial sepsis screen is negative. Does the patient have a suspected source of infection? No. Patient's initial sepsis screen is negative. Risk Assessment: Do you want to hurt yourself or someone else? Patient reports no desire to harm self or others. Onset of symptoms was February 08, 2024. 15:50 Method Of Arrival: Ambulatory iw 15:50 Acuity: ERNST 4 iw Historical: - Allergies: 15:51 No Known Allergies; iw - PMHx: 15:51 Diverticulitis; Hypertension; rectal bleeding/intestinal sloughing; Colon Polyps; iw Hyperlipidemia; prostate cancer- treated with extreemly high does radiation in 2016; - PSHx: 15:51 Lithotripsy; iw - Immunization history:: Adult Immunizations up to date. - Social history:: Smoking status: Patient denies any tobacco usage or history of. Screenin:45 [facility] ED Fall Risk Assessment (Adult) History of falling in the last 3 months, as6 including since admission Yes- single mechanical fall (1 pt) Confusion or Disorientation No (0 pts) Intoxicated or Sedated No (0 pts) Impaired Gait No (0 pts) Mobility Assist Device Used No (0 pt) Altered Elimination No (0 pt) Score/Fall Risk Level 0 - 2 = Low Risk Oriented to surroundings, Maintained a safe environment, Educated pt \T\ family on fall prevention, incl call for assistance when getting out of bed, Assessed \T\ reinforced patient's understanding of fall precautions. Abuse screen: Denies threats or abuse. Denies injuries from another. Nutritional screening: No deficits noted. Tuberculosis screening: No symptoms or risk factors identified. Assessment: 16:44 General: Appears in no apparent distress. Behavior is calm, cooperative. Pain: as6 Complains of pain in right elbow. Neuro: Level of Consciousness is awake, alert, obeys commands, Oriented to person, place, time, situation. Cardiovascular: Capillary refill < 3 seconds Patient's skin is warm and dry. Respiratory: Respiratory effort is even, unlabored, Respiratory pattern is regular, symmetrical. GI: No deficits noted. No signs and/or symptoms were reported involving the gastrointestinal system. : No deficits noted. No signs and/or symptoms were reported regarding the genitourinary system. EENT: No deficits noted. No signs and/or symptoms were reported regarding the EENT system. Derm: Skin is intact, is healthy with good turgor. Musculoskeletal: Swelling present in right elbow. Vital Signs: 15:50 BP 150 / 76; Pulse 83; Resp 16; Temp 98.2; Pulse Ox 97% on R/A; Weight 111.13 kg; iw Height 5 ft. 11 in. ; Pain 1/10; 15:50 Body Mass Index 34.17 (111.13 kg, 180.34 cm) iw 15:50 Pain Scale: Adult iw ED Course: 15:26 Patient arrived in ED. ae5 15:29 Fox Shea MD is Attending Physician. ec2 15:51 Triage completed. iw 16:22 Elbow Right 3 View XRAY In Process Unspecified. EDMS 16:44 Arm band placed on. as6 16:45 Patient has correct armband on for positive identification. Provided Education on: as6 follow up. 16:45 No provider procedures requiring assistance completed. Patient did not have IV access as6 during this emergency room visit. Esteban wrap to right elbow. Administered Medications: No medications were administered Medication: 16:45 VIS not applicable for this client. as6 Outcome: 16:35 Discharge ordered by . ec2 16:45 Discharged to home ambulatory, as6 16:45 Condition: stable 16:45 Discharge instructions given to patient, Instructed on discharge instructions, follow up and referral plans. Demonstrated understanding of instructions, follow-up care, 16:47 Patient left the ED. as6 Signatures: Dispatcher [employer] Laura Cassidy RN RN Dwayne Alberts RN RN as6 Shea, Fox, MD MD ec2 Conde, Alexia ae5
--- NOTE | 2024-02-08 16:36 | EDPHYS ---
Physician Documentation [facility] Name: Winston Castro Age: 68 yrs Sex: Male : 1955 Arrival Date: 02/08/2024 Time: 15:21 Bed DX4 Private MD: ED Physician Fox Shea HPI: 02/07 15:58 This 68 yrs old Male presents to ER via Ambulatory with complaints of Elbow ec2 Injury, Fall Injury. 15:58 Patient arrives today for evaluation of swelling to his right elbow. States that he had ec2 a ground-level fall, no LOC, states that he landed on his elbows. States that he came in significant swelling and went to be evaluated to make sure he did not have a fracture. Patient denies any other concerns.. Historical: - Allergies: 15:51 No Known Allergies; iw - PMHx: 15:51 Diverticulitis; Hypertension; rectal bleeding/intestinal sloughing; Colon Polyps; iw Hyperlipidemia; prostate cancer- treated with extreemly high does radiation in 2016; - PSHx: 15:51 Lithotripsy; iw - Immunization history:: Adult Immunizations up to date. - Social history:: Smoking status: Patient denies any tobacco usage or history of. ROS: 15:58 Constitutional: as per hpi ec2 Exam: 15:58 Constitutional: GEN: NAD Head: atraumatic Eyes: EOMI Ears: External ears are ec2 normal. CV: regular rate LUNGS: no respiratory distress ABD: non-distended SKIN: no evidence of rashes MSK: Traumatic bursitis noted over the right elbow, intact distal neurovascular status, no bony deformities, no TTP over the distal humerus or proximal forearm. Good range of motion. NEURO: moves all extremities equally Vital Signs: 15:50 BP 150 / 76; Pulse 83; Resp 16; Temp 98.2; Pulse Ox 97% on R/A; Weight 111.13 kg; iw Height 5 ft. 11 in. ; Pain 1/10; 15:50 Body Mass Index 34.17 (111.13 kg, 180.34 cm) iw 15:50 Pain Scale: Adult iw MDM: 15:51 Patient medically screened. ec2 15:58 Data reviewed: vital signs. ED course: Patient arrives today for evaluation of right ec2 elbow pain. Examination remarkable for elbow findings as above. Will obtain radiograph of the right elbow, evaluate for bony fractures, suspect contusion versus traumatic bursitis. . 16:28 ED course: Elbow x-ray independently reviewed and interpreted by me, shows no bony ec2 fracture. . 02/07 15:57 Order name: Elbow Right 3 View XRAY; Complete Time: 16:35 ec2 02/07 16:28 Order name: Esteban Wrap; Complete Time: 16:44 ec2 Administered Medications: No medications were administered Disposition Summary: 02/08/24 16:35 Discharge Ordered Notes: Location: Home ec2 Condition: Stable ec2 Diagnosis - Traumatic Bursitis ec2 Followup: ec2 - With: Private Physician - When: - Reason: Re-evaluation by your physician Discharge Instructions: - Discharge Summary Sheet ec2 - Elbow Bursitis, [id number] ec2 Forms: - Medication Reconciliation Form ec2 - Thank You Letter ec2 - Antibiotic Education ec2 - Prescription Opioid Use ec2 - Patient Portal Instructions ec2 - Leadership Thank You Letter ec2 Signatures: Dispatcher [employer] Laura Cassidy RN RN iw Slawson, Ashby, RN RN as6 Fox Shea MD MD ec2
[2024-02-08 18:21] VITALS: BP 150/76; TEMP 98.2; O2SAT 97
== END ==
LOC: ER 15:21
DX: M71.521 Other bursitis, not elsewhere classified, right elbow (principal); W18.30XA Fall on same level, unspecified, initial encounter
CPT/HCPCS: 99283

== ENCOUNTER 2024-12-12 13:21 | Emergency (ER) | payer OTHER ==
--- OUTSIDE RECORDS SUMMARY | 2024-12-12 13:26 | XMS REPORT | Continuity of Care Document ---
Author Name Unknown Address [address] [facility] [address] [place] [address] [facility] Address [address] [facility] 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 Role Phone [id number] Primary Care Physician Unavailab le Pob, Adc Lab Main Attending Clinician Charlie Ortega MD Attending Clinician [phone] CHARLIE SCHWARZ Attending Clinician UnavailKARL Kurtz Attending Clinician Unavailable Karl Paul MD Attending Clinician [phone] JACOBY GUPTA Attending Clinician Unavailable Pob, Adc Lab Main Attending Clinician UnavailJune Gutierrez MD Attending Clinician [phone] JUNE VINES Attending Clinician UnavailKarl Kurtz MD Attending Clinician [phone] Charlie Schwarz MD Attending Clinician [phone] KIMO HILL Attending Clinician Unavailable Doctor Unassigned, [place] Attending Clinician U Beatris Sellers MD Attending Clinician [phone] BEATRIS ENAMORADO Attending Clinician Unavailable CHARLEEN REYNOSO Attending Clinician Unavailtamika cyr [facility] Attending Clinician Unavailable Ty PATIÑO, Kirsten Cabrera Attending Clinician [phone] SARAH TUCKER Attending Clinician Unavailtamika Marquez RN, Skylar Dumont Attending Clinician Unavailab Janet Harmon Attending Clinician [phone] Payam Kruse MD Attending Clinician [phone] PAYAM KRUSE Attending Clinician Unavailable Nino Yousif MD Attending Clinician [phone] Lore Love DO Attending Clinician [phone] Humberto PATTERSON, Karl Admitting Clinician [phone] Payers Payer Name Policy Type Policy Number Effective Date Expirati on Date Source [employer] MANAGED MEDICARE PPO-OLGA [id number] 2020 00:00:00 [employer] MED[employer]ARE PPO [id number] 1 00:00:00 Problems Condition Name Condition Details Condition Category Status Onset Date Resolution Date Last Treatment Date Treating Clinician Comments Source Hypercalci uria Hypercalci uria Disease Active 07-26 00:00: 00 General acute hospital Hyperoxalu abdiel Hyperoxalu abdiel Disease Active 07-26 00:00: 00 General acute hospital Hyperurico suria Hyperurico suria Disease Active 07-26 00:00: 00 General acute hospital Prostate cancer Prostate cancer Disease Active 06-25 00:00: 00 General acute hospital Gross hematuria Gross hematuria Disease Active 06-07 00:00: 00 General acute hospital Bilateral ureteral calculi Bilateral ureteral calculi Disease Active 05-27 00:00: 00 General acute hospital Allergies, Adverse Reactions, Alerts Allergy Name Allergy Type Status Severity Reaction(s) Onset Date Inactive Date Treating Clinician Comments Source NO KNOWN ALLERGIE S Drug Class Active General acute hospital Social History Social Habit Start Date Stop Date Quantity Comments [facility] 2024-10-29 00:00:00 2024-10-29 00:00:00 [facility] Tobacco use and exposure 2022-11-15 00:00:00 2022-11-15 00:00:00 Smokeless tobacco non-user [facility] Exposure to SARS-CoV-2 (event) 2022 00:00:00 2022-11-13 12:45:00 Not sure [facility] Sex assigned at 1955 00:00:00 1955 00:00:00 [facility] Smoking Status Start Date Stop Date Source Never smoked tobacco General acute hospital Medications Ordered Medication Name Filled Medication Name Start Date Stop Date Current Medication? Ordering Clinician Indication Dosage Frequency Signature (SIG) Comments Components Source fexofenadin e (LACEY ALLERGY) 180 mg tablet 2023-11 13:42: 31 Yes 180mg Take 1 tablet by mouth in the morning. General acute hospital sildenafiL 100 mg tablet 2023-11 13:42: 31 Yes 100mg Take 1 tablet by mouth as needed. General acute hospital hydroCHLORO thiazide 12.5 mg tablet 08-15 00:00: 00 Yes 12.5mg Take 1 tablet by mouth in the morning. General acute hospital magnesium oxide 400 mg magnesium Tab 08-06 00:00: 00 Yes 400mg Take 400 mg by mouth in the morning and 400 mg in the evening. General acute hospital potassium citrate 99 mg Cap 2021-11 11:27: 05 11-16 00:00 :00 No 99mg Take 99 mg by mouth 2 (two) times daily. Take 4 tablets in AM and 4 tablets in the PM. General acute hospital MAGNESIUM CITRATE ORAL 2021-11 11:26: 55 11-16 00:00 :00 No 250mg Take 250 mg by mouth once now. General acute hospital Magnesium 250 mg Tab 2021-11 11:26: 55 11-16 00:00 :00 No 500mg Take 500 mg by mouth once now. Take 2 capsules by mouth daily to add up to 500 mg daily General acute hospital Magnesium 250 mg Tab 2021-11 11:26: 55 11-16 00:00 :00 No 500mg Take 500 mg by mouth once now. Take 2 capsules by mouth daily to add up to 500 mg daily General acute hospital Potassium Citrate 5 mEq (540 mg) TbSR 2021-11 00:00: 00 Yes [id number] 15meq Take 15 mEq by mouth 2 (two) times daily with meals. General acute hospital valsartan 160 mg tablet 2021-11 13:33: 46 Yes 160mg Take 160 mg by mouth in the morning and 160 mg in the evening. General acute hospital amLODIPine 10 mg tablet 2021-11 2-20 13:33: 45 Yes 5mg Take 5 mg by mouth in the morning. General acute hospital HYDROCHLORO THIAZIDE 25 mg tablet 2021-11 00:00: 00 11-16 00:00 :00 No [id number] 25mg TAKE 1 TABLET BY MOUTH EVERY MORNING AND EVENING. General acute hospital mirabegron 50 mg tablet 08-03 00:00: 00 11-07 00:00 :00 No [id number] 50mg Take 1 tablet by mouth in the morning. General acute hospital potassium citrate 99 mg Cap 05-17 13:52: 03 Yes 99mg Take 99 mg by mouth 2 (two) times daily. Take 4 tablets in AM and 4 tablets in the PM. General acute hospital multivit-mi ns/iron/fol ic/lycop (CENTRUM MEN ORAL) 05-17 13:52: 03 Yes Take by mouth once now. General acute hospital potassium citrate 99 mg Cap 05-17 13:52: 03 Yes 99mg Take 99 mg by mouth 2 (two) times daily. Take 4 tablets in AM and 4 tablets in the PM. General acute hospital Multivitami ns with Fluoride (MULTI-ESTEFANÍA MIN ORAL) 05-17 13:50: 26 05-17 00:00 :00 No 1{tbl} Take 1 tablet by mouth daily. General acute hospital Magnesium 250 mg Tab 05-17 13:47: 09 Yes 500mg Take 500 mg by mouth once now. Take 2 capsules by mouth daily to add up to 500 mg daily General acute hospital MAGNESIUM CITRATE ORAL 05-17 13:43: 47 Yes 250mg Take 250 mg by mouth once now. General acute hospital hydroCHLORO thiazide 25 mg tablet 04-21 00:00: 00 10-10 00:00 :00 No [id number] 25mg Take 1 tablet by mouth every morning and evening. General acute hospital aspirin 81 mg chewable tablet 07-26 14:21: 29 Yes 1{tbl} Take 1 tablet by mouth daily. General acute hospital pravastatin 20 mg tablet 07-26 14:21: 29 Yes 1{tbl} Take 1 tablet by mouth daily. General acute hospital niacin ER 1,000 mg tablet 07-26 14:21: 29 Yes 1{tbl} Take 1 tablet by mouth daily. General acute hospital Potassium Citrate 5 mEq (540 mg) TbSR 07-26 00:00: 00 11-16 00:00 :00 No [id number] 5meq Take 5 mEq by mouth 2 (two) times daily with meals. General acute hospital mirabegron 50 mg tablet 07-26 00:00: 00 08-02 00:00 :00 No [id number] 50mg Take 1 tablet by mouth daily. General acute hospital amLODIPine 10 mg tablet 06-09 17:15: 36 Yes 10mg Take 10 mg by mouth daily. General acute hospital metoprolol succinate XL 100 mg 24 hr tablet 06-09 17:15: 36 Yes 1{tbl} Take 1 tablet by mouth daily. General acute hospital fenofibrate 145 mg tablet 06-09 17:15: 36 Yes 1{tbl} Take 1 tablet by mouth daily. General acute hospital tamsulosin 0.4 mg 24 hr capsule 02-03 00:00: 00 Yes .4mg Take 0.4 mg by mouth daily. General acute hospital Vital Signs Vital Name Observation Time Observation Value Comments S ishmael Systolic blood pressure 2024-10-29 19:13:00 139 mm[Hg] [facility] Diastolic blood pressure 2024-10-29 19:13:00 73 mm[Hg] [facility] Heart rate 2024-10-29 19:13:00 70 /min [facility] Respiratory rate 2024-10-29 19:13:00 18 /min [facility] Body height 2024-10-29 19:13:00 180.3 cm [facility] Body weight 2024-10-29 19:13:00 117.073 kg [facility] BMI 2024-10-29 19:13:00 36.00 kg/m2 [facility] Oxygen saturation in Arterial blood by Pulse oximetry 2024-10-29 19:13:00 97 /min [facility] Systolic blood pressure 2023-11-07 21:07:00 173 mm[Hg] [facility] Diastolic blood pressure 2023-11-07 21:07:00 80 mm[Hg] [facility] Heart rate 2023-11-07 21:05:00 59 /min Un[facility] Body temperature 2023-11-07 21:05:00 36.67 Celina [facility] Body height 2023-11-07 21:05:00 180.3 cm [facility] Body weight 2023-11-07 21:05:00 113.399 kg [facility] BMI 2023-11-07 21:05:00 34.87 kg/m2 [facility] Oxygen saturation in Arterial blood by Pulse oximetry 2023-11-07 21:05:00 98 /min [facility] Systolic blood pressure 2022-11-15 19:37:00 160 mm[Hg] [facility] Diastolic blood pressure 2022-11-15 19:37:00 82 mm[Hg] [facility] Heart rate 2022-11-15 19:33:00 69 /min [facility] Body temperature 2022-11-15 19:33:00 36.67 Celina [facility] Body height 2022-11-15 19:33:00 180.3 cm [facility] Body weight 2022-11-15 19:33:00 114.306 kg [facility] BMI 2022-11-15 19:33:00 35.15 kg/m2 [facility] Systolic blood pressure 2022-05-17 18:36:00 160 mm[Hg] [facility] Diastolic blood pressure 2022-05-17 18:36:00 85 mm[Hg] [facility] Heart rate 2022-05-17 18:36:00 70 /min [facility] Body temperature 2022-05-17 18:36:00 36.44 Celina [facility] Respiratory rate 2022-05-17 18:36:00 18 /min [facility] Body height 2022-05-17 18:36:00 180.3 cm [facility] Body weight 2022-05-17 18:36:00 114.987 kg [facility] BMI 2022-05-17 18:36:00 35.36 kg/m2 [facility] Procedures Procedure Date / Time Performed Performing Clinicia n Source XR KUB 2024-10-29 20:40:00 Connor Gil [facility] XR KUB 2023-11-07 21:42:09 Karl Paul [facility] ASSIGNMENT OF BENEFITS 2023-04-12 13:09:17 Docto r Unassigned, [place] [facility] IONIZED CALCIUM 2022-11-09 15:18:00 June Vines [facility] COMP. METABOLIC PANEL (27174) 2022-11-09 15:18:00 June Vines [facility] PHYSICIAN ORDERS 2022-11-09 06:01:00 Doctor Unas signed, [place] [facility] PHYSICIAN ORDERS 2022-08-29 05:01:00 Doctor Unas signed, [place] [facility] PHYSICIAN ORDERS 2022-07-27 05:01:00 Doctor Unas signed, [place] [facility] CONSENT/REFUSAL FOR DIAGNOSIS AND TREATMENT 2022-07-12 13:44:08 Doctor Unassigned, [place] [facility] ASSIGNMENT OF BENEFITS 2022-07-12 13:43:49 Docto r Unassigned, [place] [facility] ASSIGNMENT OF BENEFITS 2022-06-08 15:14:31 Docto r Unassigned, [place] [facility] Encounters Start Date/Time End Date/Time Encounter Type Admission Type Attending Clinicians Care Facility Care Department Encounter ID Source 2021-09-27 07:33:50 Emergency [facility] [id number] General acute hospital 2024-11-07 08:45:00 2024-11-07 09:00:00 Natural Science Curator Visit Asad, Adc Lab Main Charlie Schwarz Asad, Adc Lab Main [facility] 1.2.840.114 350.1.13.10 4.2.7.2.686 [id number] General acute hospital 2024-11-07 08:45:00 2024-11-07 08:45:00 Outpatient Gil KANCHARLIE PEREIRA [facility] [id number] General acute hospital 2024-10-29 14:08:38 2024-10-29 23:59:00 Outpatient KARL GOODMAN [facility] [id number] General acute hospital 2024-10-29 14:08:38 2024-10-29 23:59:00 Hospital Encounter Karl Paul [facility] 1.2840.114 350.1.13.10 4.2.7.2.686 [id number] General acute hospital 2024-10-29 13:30:00 2024-10-29 14:05:16 Office Visit Karl Paul [facility] ([facility]) 1.2840.114 350.1.13.10 4.2.7.2.686 [id number] General acute hospital 2024-10-01 13:13:01 2024-10-01 23:59:00 Outpatient JACOBY JONES MDA MDA [id number] MD Ray mackenzie 2024-10-01 14:27:32 2024-10-01 16:33:49 Outpatient JACOBY JONES MDA MDA [id number] MD Ray mackenzie 2024-05-09 08:15:00 2024-05-09 08:30:00 Natural Science Curator Visit Asad, Mira Lab Main June Vines [facility] 1.2.840.114 350.1.13.10 4.2.7.2.686 [id number] General acute hospital 2024-05-09 08:15:00 2024-05-09 08:15:00 Outpatient JUNE JONES [facility] [id number] General acute hospital 2023-11-07 15:24:56 2023-11-07 23:59:00 Outpatient R HUMBERTO [facility] [id number] General acute hospital 2023-11-07 15:24:56 2023-11-07 23:59:00 Hospital Encounter [facility] 1.2.114 350.1.13.10 4.2.7.2.686 [id number] General acute hospital 2023-11-07 14:30:00 2023-11-07 14:45:00 Office Visit [facility] 1.2.114 350.1.13.10 4.2.7.2.686 [id number] General acute hospital 2023-11-06 08:45:00 2023-11-06 09:00:00 Natural Science Curator Visit Mira Kamara Lab Main Juan [facility] 1..840.114 350.1.13.10 4.2.7.2.686 [id number] General acute hospital 2023-11-06 08:45:00 2023-11-06 08:45:00 Outpatient Gil CHARLIE SCHWARZ [facility] [id number] General acute hospital 2023-08-16 12:36:32 2023-08-16 23:59:00 Outpatient KIMO SAUCEDA MDA, MDA [id number] MD Ray mackenzie 2023-04-12 08:15:00 2023-04-12 08:30:00 Natural Science Curator Visit Mira Kamara Lab Main Juan [facility] 1.840.114 350.1.13.10 4.2.7.2.686 [id number] General acute hospital 2023-04-12 08:15:00 2023-04-12 08:15:00 Outpatient Gil KANKELLI CHARLIE [facility] [id number] General acute hospital 2023-04-12 00:00:00 2023-04-12 00:00:00 Orders Only Doctor Unassigned, [place] [facility] 1.114 350.1.13.10 4.2.7.2.686 [id number] General acute hospital 2022-11-15 14:37:55 2022-11-15 23:59:00 Hospital Encounter Humberto [facility] 1.114 350.1.13.10 4.2.7.2.686 [id number] General acute hospital 2022-11-15 13:45:00 2022-11-15 14:34:31 Outpatient KARL GOODMAN [facility] [id number] General acute hospital 2022-11-15 13:45:00 2022-11-15 14:34:31 Office Visit Humberto [facility] 1.114 350.1.13.10 4.2.7.2.686 [id number] General acute hospital 2022-11-09 09:15:00 2022-11-09 09:30:00 Natural Science Curator Visit Pob, Adc Lab Main June Vines [facility] 1.114 350.1.13.10 4.2.7.2.686 [id number] General acute hospital 2022-11-09 09:15:00 2022-11-09 09:15:00 Outpatient R JUNE VINES [facility] [id number] General acute hospital 2022-11-09 00:00:00 2022-11-09 00:00:00 Orders Only Doctor Unassigned, [place] [facility] 1.2.840.114 350.1.13.10 4.2.7.2.686 [id number] General acute hospital 2022-10-10 00:00:00 2022-10-10 00:00:00 [facility] 1.2.840.114 350.1.13.10 4.2.7.2.686 [id number] General acute hospital 2022-09-13 00:00:00 2022-09-13 00:00:00 [facility] 1.2.840.114 350.1.13.10 4.2.7.2.686 [id number] General acute hospital 2022-08-29 07:45:00 2022-08-29 08:00:00 Natural Science Curator Visit Pob, Adc Lab Main Beatris Enamorado [facility] 1.2840.114 350.1.13.10 4.2.7.2.686 [id number] General acute hospital 2022-08-29 07:45:00 2022-08-29 07:45:00 Outpatient BEATRIS LLOYD [facility] [id number] General acute hospital 2022-08-29 00:00:00 2022-08-29 00:00:00 Orders Only Doctor Unassigned, [place] [facility] 1.2.840.114 350.1.13.10 4.2.7.2.686 [id number] General acute hospital 2022-08-09 11:27:53 2022-08-09 23:59:00 Outpatient MERY JOSEPH MDA [id number] MD Ray mackenzie 2022-08-09 13:02:06 2022-08-09 14:17:13 Outpatient KIMO SAUCEDA MDA, MDA [id number] MD Ray mackenzie 2022-08-02 00:00:00 2022-08-02 00:00:00 Karl Mora [facility] 1.2840.114 350.1.13.10 4.2.7.2.686 [id number] General acute hospital 2022-07-27 10:15:00 2022-07-27 10:30:00 Natural Science Curator Visit [facility] 1.20.114 350.1.13.10 4.2.7.2.686 [id number] General acute hospital 2022-07-27 10:15:00 2022-07-27 10:15:00 Outpatient Gil ENAMORADO [facility] [id number] General acute hospital 2022-07-27 00:00:00 2022-07-27 00:00:00 Orders Only Doctor Unassigned, [place] [facility] 1.20.114 350.1.13.10 4.2.7.2.686 [id number] General acute hospital 2022-07-12 08:45:00 2022-07-12 09:00:00 Natural Science Curator Visit [facility] 1.2840.114 350.1.13.10 4.2.7.2.686 [id number] General acute hospital 2022-07-12 08:45:00 2022-07-12 08:45:00 [id number] 2022-07-12 00:00:00 2022-07-12 00:00:00 Orders Only Doctor Unassigned, [place] [facility] 1.2840.114 350.1.13.10 4.2.7.2.686 [id number] General acute hospital 2022-07-06 15:30:00 2022-07-06 15:30:00 Outpatient R EDGARDOCHARLEEN [facility] [id number] General acute hospital 2022-06-08 11:15:00 2022-06-08 11:30:00 Natural Science Curator Visit Asad, Mira Lab Main Charlie Schwarz [facility] 1.84.114 350.1.13.10 4.2.7.2.686 [id number] General acute hospital 2022-06-08 11:15:00 2022-06-08 11:15:00 Outpatient CHARLIE BENTLEY [facility] [id number] General acute hospital 2022-06-08 00:00:00 2022-06-08 00:00:00 Orders Only Doctor Unassigned, [place] [facility] 1.114 350.1.13.10 4.2.7.2.686 [id number] General acute hospital 2022-05-18 00:00:00 2022-05-18 00:00:00 Patient Secure Msg [facility] 1.114 350.1.13.10 4.2.7.2.686 [id number] General acute hospital 2022-05-17 14:57:47 2022-05-17 23:59:00 Hospital Encounter [facility] 1.114 350.1.13.10 4.2.7.2.686 [id number] General acute hospital 2022-05-17 14:57:47 2022-05-17 23:59:00 Outpatient R HUMBERTO [facility] [id number] General acute hospital 2022-05-17 15:30:00 2022-05-17 15:45:00 Natural Science Curator Visit [facility] 1..114 350.1.13.10 4.2.7.2.686 [id number] General acute hospital 2022-05-17 13:30:00 2022-05-17 14:41:17 Outpatient R KARL PAUL [facility] [id number] General acute hospital 2022-05-17 13:30:00 2022-05-17 14:41:17 Office Visit [facility] 1.2840.114 350.1.13.10 4.2.7.2.686 [id number] General acute hospital 2022-05-05 12:28:00 2022-05-05 18:22:00 Emergency Kirsten Crawford [facility] 1.2.840.114 350.1.13.10 4.2.7.2.686 [id number] General acute hospital 2022-05-05 09:00:00 2022-05-05 09:15:00 Natural Science Curator Visit Pob, [facility] 1.2.840.114 350.1.13.10 4.2.7.2.686 [id number] General acute hospital 2022-05-05 09:00:00 2022-05-05 09:00:00 Outpatient Gil PAUL [facility] [id number] General acute hospital 2022-05-05 09:00:00 2022-05-05 09:00:00 Outpatient R HUMBERTO [facility] [id number] General acute hospital 2022-05-05 00:00:00 2022-05-05 00:00:00 Telephone [facility] 1.2840.114 350.1.13.10 4.2.7.2.686 [id number] General acute hospital 2022-05-05 00:00:00 2022-05-05 00:00:00 Orders Only Doctor Unassigned, [place] [facility] 1.20.114 350.1.13.10 4.2.7.2.686 [id number] General acute hospital 2022-04-21 08:30:00 2022-04-21 08:45:00 Natural Science Curator Visit Pob, [facility] 1.20.114 350.1.13.10 4.2.7.2.686 [id number] General acute hospital 2022-04-21 08:30:00 2022-04-21 08:30:00 Outpatient R [facility] [id number] General acute hospital 2022-04-21 08:30:00 2022-04-21 08:30:00 Outpatient [facility] [id number] General acute hospital 2022-04-21 00:00:00 2022-04-21 00:00:00 Letter (Out) Doctor Unassigned, [place] [facility] 1.20.114 350.1.13.10 4.2.7.2.686 [id number] General acute hospital 2022-04-21 00:00:00 2022-04-21 00:00:00 Telephone [facility] 1.20.114 350.1.13.10 4.2.7.2.686 [id number] General acute hospital 2022-04-21 00:00:00 2022-04-21 00:00:00 Telephone [facility] 1.20.114 350.1.13.10 4.2.7.2.686 [id number] General acute hospital 2022-04-13 00:00:00 2022-04-13 00:00:00 Telephone [facility] 1.2840.114 350.1.13.10 4.2.7.2.686 [id number] General acute hospital 2022-01-25 00:00:00 2022-01-25 00:00:00 Telephone Karl Paul [facility] 1.284.114 350.1.13.10 4.2.7.2.686 [id number] General acute hospital 2022-01-17 14:15:00 2022-01-17 14:30:00 Natural Science Curator Visit Pob, Adc Lab [facility] 1.84.114 350.1.13.10 4.2.7.2.686 [id number] General acute hospital 2022-01-17 14:15:00 2022-01-17 14:15:00 Outpatient [facility] [id number] General acute hospital 2022-01-17 00:00:00 2022-01-17 00:00:00 Orders Only Doctor Unassigned, [place] [facility] 1.0.114 350.1.13.10 4.2.7.2.686 [id number] General acute hospital 2022-01-14 00:00:00 2022-01-14 00:00:00 Telephone Karl Paul [facility] 1..114 350.1.13.10 4.2.7.2.686 [id number] General acute hospital 2022-01-03 11:30:00 2022-01-03 11:45:00 Natural Science Curator Visit Pob, Adc Lab [facility] 1.284.114 350.1.13.10 4.2.7.2.686 [id number] General acute hospital 2022-01-03 11:30:00 2022-01-03 11:30:00 Outpatient R KARL PAUL [facility] [id number] General acute hospital 2022-01-03 00:00:00 2022-01-03 00:00:00 Orders Only Doctor Unassigned, [place] [facility] 1.2.840.114 350.1.13.10 4.2.7.2.686 [id number] General acute hospital 2021 00:00:00 2021 00:00:00 Telephone [facility] 1.2.840.114 350.1.13.10 4.2.7.2.686 [id number] General acute hospital 2021-11-02 15:04:09 2021-11-02 23:59:00 Hospital Encounter [facility] 1.2.840.114 350.1.13.10 4.2.7.2.686 [id number] General acute hospital 2021-11-02 14:30:00 2021-11-02 14:59:56 Outpatient R KARL PAUL [facility] [id number] General acute hospital 2021-11-02 14:30:00 2021-11-02 14:59:56 Outpatient R HUMBERTO [facility] [id number] General acute hospital 2021-11-02 14:30:00 2021-11-02 14:59:56 Outpatient R HUMBERTO [facility] [id number] General acute hospital 2021-11-02 14:30:00 2021-11-02 14:59:56 Office Visit [facility] 1.2.840.114 350.1.13.10 4.2.7.2.686 [id number] General acute hospital 2021-08-04 10:16:32 2021-08-04 23:59:00 Outpatient [facility] [id number] MD Ray mackenzie 2021-08-03 14:52:50 2021-08-03 15:00:59 Outpatient [facility] [id number] MD Ray mackenzie 2021-07-29 00:00:00 2021-07-29 00:00:00 Telephone [facility] 1..114 350.1.13.10 4.2.7.2.686 [id number] General acute hospital 2021-07-26 13:58:07 2021-07-26 16:24:04 Office Visit [facility] 1..114 350.1.13.10 4.2.7.2.686 [id number] General acute hospital 2021-07-26 14:00:00 2021-07-26 14:00:00 Outpatient R [facility] [id number] General acute hospital 2021-07-07 08:54:05 2021-07-07 09:09:05 Natural Science Curator Visit Pob, Adc Lab Main [facility] 1.114 350.1.13.10 4.2.7.2.686 [id number] General acute hospital 2021-07-07 08:45:00 2021-07-07 08:45:00 Outpatient R [facility] [id number] General acute hospital 2021-07-07 00:00:00 2021-07-07 00:00:00 Orders Only Doctor Unassigned, [facility] 1.114 350.1.13.10 4.2.7.2.686 [id number] General acute hospital 2021-07-06 00:00:00 2021-07-06 00:00:00 Telephone [facility] 1..114 350.1.13.10 4.2.7.2.686 [id number] General acute hospital 2021-07-02 00:00:00 2021-07-02 00:00:00 Telephone [facility] 1.2.840.114 350.1.13.10 4.2.7.2.686 [id number] General acute hospital 2021-06-25 12:23:29 2021-06-25 12:38:29 Natural Science Curator Visit [facility] 1.2.840.114 350.1.13.10 4.2.7.2.686 [id number] General acute hospital 2021-06-25 10:46:42 2021-06-25 12:22:34 Office Visit [facility] 1.2.840.114 350.1.13.10 4.2.7.2.686 [id number] General acute hospital 2021-06-25 10:30:00 2021-06-25 10:30:00 Outpatient R [facility] [id number] General acute hospital 2021-06-14 00:00:00 2021-06-14 00:00:00 Orders Only Doctor Unassigned, [facility] 1.2.840.114 350.1.13.10 4.2.7.2.686 [id number] General acute hospital 2021-06-10 00:00:00 2021-06-10 00:00:00 Transition of Care Skylar Marquez 1.2.840.114 350.1.13.10 4.2.7.2.686 [id number] General acute hospital 2021-06-07 14:17:00 2021-06-09 16:00:00 Emergency Janet [facility] 1.2.840.114 350.1.13.10 4.2.7.2.686 [id number] General acute hospital 2021-06-07 18:00:00 2021-06-07 19:28:00 Surgery [facility] 1.2.840.114 350.1.13.10 4.2.7.2.686 [id number] General acute hospital 2021-06-07 08:13:38 2021-06-07 13:26:47 Office Visit [facility] 1.2.840.114 350.1.13.10 4.2.7.2.686 [id number] General acute hospital 2021-06-07 11:00:00 2021-06-07 11:00:00 Outpatient R [facility] [id number] General acute hospital 2021-06-07 05:40:00 2021-06-07 07:06:00 Emergency Payam Kruse [facility] 1.2.840.114 350.1.13.10 4.2.7.2.686 [id number] General acute hospital 2021-06-07 05:40:00 2021-06-07 05:40:00 Emergency X PAYAM KRUSE [facility] [id number] General acute hospital 2021-06-06 21:23:00 2021-06-07 00:04:00 Emergency Payam Kruse [facility] 1.2.840.114 350.1.13.10 4.2.7.2.686 [id number] General acute hospital 2021-06-07 00:00:00 2021-06-07 00:00:00 Telephone [facility] 1.2.840.114 350.1.13.10 4.2.7.2.686 [id number] General acute hospital 2021-06-07 00:00:00 2021-06-07 00:00:00 Telephone [facility] 1.2.840.114 350.1.13.10 4.2.7.2.686 [id number] General acute hospital 2021-06-06 21:23:00 2021-06-06 21:23:00 Emergency X PAYAM KRUSE [facility] [id number] General acute hospital 2021-06-06 00:00:00 2021-06-06 00:00:00 Orders Only Doctor Unassigned, [facility] 1.2840.114 350.1.13.10 4.2.7.2.686 [id number] General acute hospital 2021-06-05 14:39:00 2021-06-05 15:53:00 Emergency Lore Love [facility] 1.2840.114 350.1.13.10 4.2.7.2.686 [id number] General acute hospital 2021-06-05 14:35:00 2021-06-05 14:35:00 Emergency X [facility] [id number] General acute hospital 2021-06-04 16:27:00 2021-06-04 22:23:00 Emergency Kirsten Crawford [facility] 1.2840.114 350.1.13.10 4.2.7.2.686 [id number] General acute hospital 2021-06-04 16:21:00 2021-06-04 16:21:00 Emergency X [facility] [id number] General acute hospital 2021-06-04 00:00:00 2021-06-04 00:00:00 Telephone [facility] 1.2840.114 350.1.13.10 4.2.7.2.686 [id number] General acute hospital Results Test Description Test Time Test Comments Results Resul t Comments Source XR Kub 2024-10-29 21:14:14 EXAM: XR KUB HISTORY: 68 years-old Male; Provided indication: hx nephrolithiasi s.Comparison of stones compared to prior imaging. . TECHNIQUE: Frontal view of the abdomen and pelvis COMPARISON: [id number]09 16:56:52* Test Item Value Reference Range Interpretation Comme nts NA (test code = 3787253646) 140 mmol/L 135-145 K (test code = 1236723285) 3.8 mmol/L 3.5-5.0 CL (test code = 6769207720) 106 mmol/L 98-108 CO2 TOTAL (test code = 7341091667) 27 mmol/L 23-31 AGAP (test code = 6874047916) 2-16 BUN (test code = 5889972352) 20 mg/dL 7-23 GLUCOSE (test code = 4989199379) 135 mg/dL 70-110 H CREATININE (test code = 7374586180) 1.05 mg/dL 0.60-1.25 TOTAL BILI (test code = 1244972886) 0.5 mg/dL 0.1-1.1 CALCIUM (test code = 7912827493) 10.1 mg/dL 8.6-10.6 T PROTEIN (test code = 5573802797) 6.8 g/dL 6.3-8.2 ALBUMIN (test code = 6572468593) 4.3 g/dL 3.5-5.0 ALK PHOS (test code = 1380678967) 46 U/L 34-122 ALTv (test code = 1742-6) 37 U/L 5-50 AST(SGOT) (test code = 7022826196) 29 U/L 13-40 eGFR (test code = 9715102819) mL/min/1.73m2 RICK (test code = RICK) Association [...] imaging tests). Lab Interpretation (test code = 30942-4) Abnormal [facility]"
[2024-12-12] MEDS ORDERED: MORPHINE 4 MG/ML SYR ONE (13:43)
[2024-12-12] MEDS ORDERED: NA CHLORIDE 0.9% 1,000 ML ONE (13:43)
[2024-12-12] MEDS ORDERED: ONDANSETRON 4 MG/2 ML VIAL ONE (13:43)
[2024-12-12] MEDS ORDERED: FAMOTIDINE 20 MG/2 ML VIAL IV ONE (13:43)
[2024-12-12 14:06] LABS: Absolute Basophils 0.1 K/uL (0-0.5); Absolute Eosinophils 0.2 K/uL (0-0.5); Absolute Lymphocytes (CBC) 1.7 K/uL (0.7-4.9); Absolute Monocytes 0.9 K/uL (0.1-1.3); Absolute Neutrophil 5.1 K/uL (1.8-8.0); Basophils % 0.6 % (0-1.3); Eosinophils % 2.8 % (0-4.4); Hemoglobin 14.3 g/dL (13.6-17.9); Lymphocytes % 21.3 % (15.3-44.8); MCH 29.4 pg (27.0-35.0); MCV 86.6 fL (80-100); MPV 8.8 fL (7.6-11.3); Monocytes % 11.8 % (3.3-12.3); Neutrophils % 63.5 % (41.7-73.7); Platelets 220 thou/uL (152-406); RBC Red Blood Cell Count 4.85 M/uL (4.33-5.43); Red Cell Distribution Width 13.9 % (12.1-15.2)
[2024-12-12 14:17] LABS: PT Prothrombin Time 12.7 SECONDS (9.4-12.5); Protime INR 1.21
[2024-12-12 14:32] LABS: Albumin 3.4 g/dL (3.4-5.0); Albumin/Globulin Ratio 0.8 (1.1-1.8); Anion Gap 11.3 mEq/L (5.0-15.0); Bilirubin Direct 0.2 mg/dL (0-0.2); Bilirubin Indirect, Calculated 0.4 mg/dL (0.2-0.8); Bilirubin Total 0.6 mg/dL (0.2-1.0); Globulin 4.1 g/dL (2.3-3.5); Magnesium 1.9 mg/dL (1.6-2.4); Potassium 3.3 mEq/L (3.5-5.1); Protein, Total 7.5 g/dL (6.4-8.2); Troponin High Sensitivity 6.7 pg/mL (<58.9)
--- NOTE | 2024-12-12 14:49 | RAD REPORT ---
EXAM: Chest Single View HISTORY: ABDOMINAL DISTENTION COMPARISON: 04/08/2022 FINDINGS: LUNGS/PLEURA: The lungs are clear. No pleural effusions or pneumothorax. No pulmonary edema. MEDIASTINUM: The mediastinal silhouette is within normal limits. CARDIAC: The cardiac silhouette is within normal limits. UPPER ABDOMEN: No significant abnormality. BONES: No acute abnormality. LINES/TUBES/OTHER: N/A IMPRESSION: No evidence of acute cardiopulmonary disease.
--- NOTE | 2024-12-12 14:56 | RAD REPORT ---
EXAMINATION: CT ABDOMEN AND PELVIS WITH CONTRAST CLINICAL INDICATION: Male, 69 years old.ABD PAIN TECHNIQUE: CT abdomen and pelvis was performed, after the administration of IV contrast, as per [facility]. Axial, sagittal and coronal reconstructions were obtained. One or more of the following dose reduction techniques were used: Automated exposure control, adjustment of the mA and/o r kV according to patient size, and/or iterative reconstruction. Unless otherwise specified, incidental findings do not require dedicated imaging follow-up. [id number]. COMPARISON: 06/02/2021 FINDINGS: LOWER CHEST: No acute process identified.No significant pericardial effusion. Mild circumferential th ickening of the distal esophagus which could reflect esophagitis. UPPER GI: No significant abnormality. LIVER: Hepatic steatosis. Multiple low-density liver lesions are noted which are unchanged since 2020 and benign. GALLBLADDER/BILE DUCTS: Cholecystectomy. No significant biliary ductal dilatation.? PANCREAS: No mass, ductal dilation, or huy-pancreatic fluid. SPLEEN: Unremarkable. ADRENALS: No adrenal masses. KIDNEYS AND URETERS: No hydronephrosis.Low density and/or too small to characterize renal lesions whi ch are statistically benign.Bilateral nonobstructive nephrolithiasis.Renal scarring bilaterally. ABDOMINAL AORTA AND OTHER VESSELS: Mild atherosclerotic changes. PERITONEUM: No abnormal free fluid. No free air. LYMPH NODES: No pathologic lymphadenopathy. ABDOMINAL WALL: Unremarkable SMALL BOWEL/COLON: Nonperforated diverticulitis at the ascending colon.Normal appendix. URINARY BLADDER: Underdistended but grossly unremarkable. REPRODUCTIVE ORGANS: Fiducial markers in the prostate. MUSCULOSKELETAL: Multilevel degenerative changes in the spine. No acute fracture. ADDITIONAL FINDINGS: None. IMPRESSION: Nonperforated diverticulitis of the ascending colon. Normal appendix.
[2024-12-12 15:16] LABS: Specific Gravity 1.027 (1.005-1.030); Sqamous Epithelial <5 /HPF (None Seen); Transitional Epithelial <5 /HPF (None Seen); Urine Bacteria <20 /HPF (<20); Urine Bilirubin NEGATIVE (Negative); Urine Blood Negative (Negative); Urine Clarity Clear (Clear); Urine Color Light-Yellow (Yellow); Urine Culture Reflex Order NOT NEEDED; Urine Glucose NEGATIVE (Negative); Urine Ketones NEGATIVE (Negative); Urine Microscopic Reflex YN ORDER UMIC; Urine Mucus Slight /HPF (None Seen); Urine Nitrite NEGATIVE (Negative); Urine Protein NEGATIVE (Negative); Urine RBC <5 /HPF (None Seen); Urine Urobilinogen Normal (Normal); Urine WBC <5 /HPF (<5); Urine pH 6.5 (5.0-7.0)
--- NOTE | 2024-12-12 15:43 | EDPHYS ---
Physician Documentation [facility] Name: Winston Castro Age: 69 yrs Sex: Male : 1955 Arrival Date: 12/12/2024 Time: 13:21 Bed 19 Private MD: SHANTA Physician Rob Ackerman HPI: 12/12 15:38 This 69 yrs old Male presents to ER via Ambulatory with complaints of doug Abdominal Pain. 15:38 The patient presents with abdominal pain in the right upper quadrant, right lower doug quadrant. Onset: The symptoms/episode began/occurred 3 day(s) ago. The symptoms do not radiate. Associated signs and symptoms: none. Modifying factors: The symptoms are alleviated by nothing, the symptoms are aggravated by nothing. Severity of pain: At its worst the pain was moderate in the emergency department the pain is unchanged. The patient has not experienced similar symptoms in the past. Historical: - Allergies: 13:47 No Known Allergies; ss - Home Meds: 13:47 valsartan 160 mg oral tablet 1 tab daily for hypertension [Active]; fenofibrate oral ss 145 mg 1 tab daily [Active]; metoprolol succinate 100 mg oral Tablet, Extended Release 24 hr 1 tab daily [Active]; hydrochlorothiazide 12.5 mg Oral tablet 1 tab daily [Active]; aspirin 81 mg Oral tablet, delayed release (enteric coated) 1 tab daily [Active]; amlodipine 5 mg tablet 1 tab daily [Active]; Niacin ER 1000 mg DAILY [Active]; pravastatin 20 mg oral tablet 1 tab every day at bedtime [Active]; tamsulosin 0.4 mg oral capsule 1 cap daily [Active]; - PMHx: 13:47 Colon Polyps; Diverticulitis; Hyperlipidemia; Hypertension; prostate cancer- treated ss with extreemly high does radiation in 2016; rectal bleeding/intestinal sloughing; - PSHx: 13:47 Lithotripsy; ss - Immunization history:: Adult Immunizations up to date. - Infectious Disease History:: Denies. - Family history:: not pertinent. - Social history:: Smoking status: unknown. ROS: 15:38 Constitutional: Negative for fever, chills, and weight loss, Eyes: Negative for injury, doug pain, redness, and discharge, ENT: Negative for injury, pain, and discharge, Neck: Negative for injury, pain, and swelling, Cardiovascular: Negative for chest pain, palpitations, and edema, Respiratory: Negative for shortness of breath, cough, wheezing, and pleuritic chest pain, Back: Negative for injury and pain, : Negative for injury, bleeding, discharge, and swelling, MS/Extremity: Negative for injury and deformity, Skin: Negative for injury, rash, and discoloration, Neuro: Negative for headache, weakness, numbness, tingling, and seizure, Psych: Negative for depression, anxiety, suicide ideation, homicidal ideation, and hallucinations, Allergy/Immunology: Negative for hives, rash, and allergies, Endocrine: Negative for neck swelling, polydipsia, polyuria, polyphagia, and marked weight changes, Hematologic/Lymphatic: Negative for swollen nodes, abnormal bleeding, and unusual bruising, 15:38 Abdomen/GI: Positive for abdominal pain, of the anterior aspect of right lateral abdomen, posterior aspect of right lateral abdomen, right upper quadrant and right lower quadrant, Exam: 15:38 Constitutional: This is a well developed, well nourished patient who is awake, alert, doug and in no acute distress. Head/Face: Normocephalic, atraumatic. Eyes: Pupils equal round and reactive to light, extra-ocular motions intact. Lids and lashes normal. Conjunctiva and sclera are non-icteric and not injected. Cornea within normal limits. Periorbital areas with no swelling, redness, or edema. ENT: Nares patent. No nasal discharge, no septal abnormalities noted. Tympanic membranes are normal and external auditory canals are clear. Oropharynx with no redness, swelling, or masses, exudates, or evidence of obstruction, uvula midline. Mucous membranes moist. Neck: Trachea midline, no thyromegaly or masses palpated, and no cervical lymphadenopathy. Supple, full range of motion without nuchal rigidity, or vertebral point tenderness. No Meningismus. Chest/axilla: Normal chest wall appearance and motion. Nontender with no deformity. No lesions are appreciated. Cardiovascular: Regular rate and rhythm with a normal S1 and S2. No gallops, murmurs, or rubs. Normal PMI, no JVD. No pulse deficits. Respiratory: Lungs have equal breath sounds bilaterally, clear to auscultation and percussion. No rales, rhonchi or wheezes noted. No increased work of breathing, no retractions or nasal flaring. Back: No spinal tenderness. No costovertebral tenderness. Full range of motion. Male : Normal genitalia with no discharge or lesions. Skin: Warm, dry with normal turgor. Normal color with no rashes, no lesions, and no evidence of cellulitis. MS/ Extremity: Pulses equal, no cyanosis. Neurovascular intact. Full, normal range of motion., bilateral aka Neuro: Awake and alert, GCS 15, oriented to person, place, time, and situation. Cranial nerves II-XII grossly intact. Motor strength 5/5 in all extremities. Sensory grossly intact. Cerebellar exam normal. Normal gait. Psych: Awake, alert, with orientation to person, place and time. Behavior, mood, and affect are within normal limits. 15:38 ECG was reviewed by the Attending Physician. 15:38 Abdomen/GI: Inspection: distension, that is mild, that is moderate, Bowel sounds: normal, Palpation: mild abdominal tenderness, in the anterior aspect of right lateral abdomen, posterior aspect of right lateral abdomen, right upper quadrant and right lower quadrant, Liver: no appreciated palpable abnormalities, Hernia: not appreciated, Vital Signs: 13:39 BP 155 / 85; Pulse 90; Resp 17; Temp 98.5(O); Pulse Ox 98% on R/A; Weight 115.67 kg; ss Height 5 ft. 11 in. ; Pain 1/10; 15:10 BP 140 / 78; Pulse 85; Resp 18 S; Pulse Ox 100% on R/A; kc6 13:39 Body Mass Index 35.56 (115.67 kg, 180.34 cm) ss 13:39 Pain Scale: Adult ss MDM: 13:27 Medical Screening Exam initiated doug 15:40 Differential diagnosis: appendicitis, bowel obstruction, Cholelithiasis, doug diverticulitis, gastritis, Mesenteric ischemia or infarction, non-specific abd pain, pancreatitis, Peptic Ulcer Disease, Prostatitis, Pyelonephritis, Ureterolithiasis, urinary tract infection. Data reviewed: vital signs, nurses notes, lab test result(s), EKG, radiologic studies, CT scan, plain films. Consideration of Admission/Observation Escalation of care including admission/observation considered. I considered the following discharge prescriptions or medication management in the emergency department Medications were administered in the Emergency Department. See MAR. Independent interpretation of the following test(s) in the Emergency Department EKG: See my EKG interpretation above. Test considered but Not performed: Ultrasound no gb , abd usg. 12/12 13:34 Order name: Basic Metabolic Panel; Complete Time: 15:20 12/12 13:34 Order name: CBC with Diff; Complete Time: 15:20 12/12 13:34 Order name: LFT's; Complete Time: 15:20 12/12 13:34 Order name: Magnesium; Complete Time: 15:20 12/12 13:34 Order name: NT PRO-BNP; Complete Time: 15:20 12/12 13:34 Order name: PT-INR; Complete Time: 15:20 12/12 13:34 Order name: Troponin HS; Complete Time: 15:20 12/12 13:34 Order name: Lipase; Complete Time: 15:20 doug 12/12 13:34 Order name: Urinalysis w/ reflexes; Complete Time: 15:20 12/12 13:34 Order name: XRAY Chest (1 view); Complete Time: 15:20 12/12 13:34 Order name: CT Abd/Pelvis - IV Contrast Only; Complete Time: 15:20 12/12 13:34 Order name: Cardiac monitoring; Complete Time: 14:02 12/12 13:34 Order name: EKG - Nurse/Tech; Complete Time: 14:02 12/12 13:34 Order name: IV Saline Lock; Complete Time: 14:02 12/12 13:34 Order name: Labs collected and sent; Complete Time: 14:02 12/12 13:34 Order name: O2 Per Protocol; Complete Time: 13:41 12/12 13:34 Order name: O2 Sat Monitoring; Complete Time: 13:[address] [facility] EC:38 Rate is 88 beats/min. Rhythm is regular. QRS [place] is Normal. [place] interval is normal. QRS doug interval is normal. QT interval is normal. No Q waves. T waves are Normal. No ST changes noted. Clinical impression: NSR w/ Non-specific ST/T Changes and No evidence of ischemia. Interpreted by me. Reviewed by me. Administered Medications: 14:02 Drug: NS 0.9% IV 1000 ml IV at 1000 ml once; to be given as a bolus over 60 minutes kc6 Route: IV; Rate: 1000 ml; Site: left forearm; 15:54 Follow up: Response: No adverse reaction; IV Status: Completed infusion; IV Intake: kc6 1000ml 14:02 Drug: Famotidine IVP 20 mg IVP once; dilute with 10 mL 0.9% NaCl; give over 2 minutes kc6 Route: IVP; Site: left forearm; 15:11 Follow up: Response: No adverse reaction kc6 14:28 Not Given (Patient Refused): morphineor iv 2 mg IVP once over 4 mins kc6 14:28 Not Given (Patient Refused): morphineor iv 2 mg IVP once over 4 mins kc6 14:28 Not Given (Patient Refused): ondansetron 4 mg IVP once; over 2 minutes kc6 15:54 Drug: Rocephin IV 2 grams IV at per protocol once; Given slow IV push per pharmarcy kc6 instructions Route: IV; Rate: per protocol; Site: left forearm; 16:46 Follow up: Response: No adverse reaction; IV Status: Completed infusion; IV Intake: 30wpfh9 16:46 Drug: metroNIDAZOLE IVPB 500 mg 100 ml IVPB at 200 ml/hr once over 30 mins Volume: 100 kc6 ml; Route: IVPB; Rate: 200 ml/hr; Infused Over: 30 mins; Site: left forearm; 18:07 Follow up: Response: No adverse reaction; IV Status: Completed infusion; IV Intake: kc6 100ml 17:04 Drug: Ciprofloxacin IVPB 400 mg 200 ml IVPB once over 60 mins Volume: 200 ml; Route: kc6 IVPB; Infused Over: 60 mins; Site: left forearm; 18:08 Follow up: Response: No adverse reaction; IV Status: Completed infusion; IV Intake: kc6 200ml Disposition Summary: 12/12/24 15:43 Discharge Ordered Notes: Location: Home doug Problem: new doug Symptoms: have improved doug Condition: Stable doug Diagnosis - Abdominal tenderness doug - Diverticulitis of large intestine without perforation or abscess without bleeding - doug ascending colon Followup: doug - With: Private Physician - When: 2 - 3 days - Reason: Recheck today's complaints, Continuance of care, Re-evaluation by your physician Followup: doug - With: Drew Salvador MD - When: 2 - 3 days - Reason: Recheck today's complaints, Continuance of care, Re-evaluation by your physician Discharge Instructions: - Discharge Summary Sheet doug - Abdominal Pain, Adult doug - High-Fiber Eating Plan doug - Diverticulitis doug - Diverticulitis, [id number] [facility] Forms: - Medication Reconciliation Form doug - Antibiotic Education doug - Prescription Opioid Use doug - Patient Portal Instructions [facility] - Leadership Thank You Letter [facility] Prescriptions: - Colace 100 mg Oral capsule - take 1 tablet ORAL route every 12 hours; 20 tablet; Refills: 0, Product [facility] Selection Permitted - Flagyl 500 mg Oral Tablet - take 1 tablet ORAL route every 6 hours for 10 days; 40 tablet; Refills: 0, [facility] Product Selection Permitted - Cipro 500 mg Oral tablet - take 1 tablet ORAL route every 12 hours for 10 days; 20 tablet; Refills: 0, [facility] Product Selection Permitted - dicyclomine 20 mg Oral tablet - take 1 tablet ORAL route 4 times per day; 28 tablet; Refills: 0, Product [facility] Selection Permitted Signatures: Dispatcher [employer] EDMS Rob Ackerman MD MD cha Blanchard, Shelby, RN RN ss Rosamaria Ponce RN RN kc6 Corrections: (The following items were deleted from the chart) 13:35 13:35 Chest Single View+RAD.RAD.BRZ ordered. EDMS EDMS 13:35 13:35 Abdomen Pelvis W Con+CT.RAD.BRZ ordered. EDMS EDMS 13:35 13:35 Abdomen Limited+US.RAD.BRZ ordered. EDMS EDMS
--- NOTE | 2024-12-12 15:43 | ER ---
Nurse's Notes [facility] Name: Winston Castro Age: 69 yrs Sex: Male : 1955 Arrival Date: 12/12/2024 Time: 13:21 Bed 19 Private MD: Diagnosis: Abdominal tenderness;Diverticulitis of large intestine without perforation or abscess without bleeding-ascending colon Presentation: 12/12 13:39 Chief complaint: Patient states: RLQ discomfort and tenderness that began 3 days ago. ss Denies fever. Reports loose stools and decreased urinary stream. Coronavirus screen: Client denies travel out of the [place] in the last 14 days. Ebola Screen: Patient denies exposure to infectious person. Patient denies travel to an Ebola-affected area in the 21 days before illness onset. Initial Sepsis Screen: Does the patient meet any 2 criteria? No. Patient's initial sepsis screen is negative. Does the patient have a suspected source of infection? No. Patient's initial sepsis screen is negative. Risk Assessment: Do you want to hurt yourself or someone else? Patient reports no desire to harm self or others. Onset of symptoms was December 09, 2024. 13:39 Method Of Arrival: Ambulatory ss 13:39 Acuity: ERNST 3 ss Historical: - Allergies: 13:47 No Known Allergies; ss - Home Meds: 13:47 valsartan 160 mg oral tablet 1 tab daily for hypertension [Active]; fenofibrate oral ss 145 mg 1 tab daily [Active]; metoprolol succinate 100 mg oral Tablet, Extended Release 24 hr 1 tab daily [Active]; hydrochlorothiazide 12.5 mg Oral tablet 1 tab daily [Active]; aspirin 81 mg Oral tablet, delayed release (enteric coated) 1 tab daily [Active]; amlodipine 5 mg tablet 1 tab daily [Active]; Niacin ER 1000 mg DAILY [Active]; pravastatin 20 mg oral tablet 1 tab every day at bedtime [Active]; tamsulosin 0.4 mg oral capsule 1 cap daily [Active]; - PMHx: 13:47 Colon Polyps; Diverticulitis; Hyperlipidemia; Hypertension; prostate cancer- treated ss with extreemly high does radiation in 2016; rectal bleeding/intestinal sloughing; - PSHx: 13:47 Lithotripsy; ss - Immunization history:: Adult Immunizations up to date. - Infectious Disease History:: Denies. - Family history:: not pertinent. - Social history:: Smoking status: unknown. Screenin:05 [facility] ED Fall Risk Assessment (Adult) History of falling in the last 3 months, kc6 including since admission No falls in past 3 months (0 pts) Confusion or Disorientation No (0 pts) Intoxicated or Sedated No (0 pts) Impaired Gait No (0 pts) Mobility Assist Device Used No (0 pt) Altered Elimination No (0 pt) Score/Fall Risk Level 0 - 2 = Low Risk Oriented to surroundings, Maintained a safe environment. Abuse screen: Denies threats or abuse. Denies injuries from another. Nutritional screening: No deficits noted. Tuberculosis screening: No symptoms or risk factors identified. Assessment: 13:45 General: Appears in no apparent distress. comfortable, well groomed, well developed, kc6 Behavior is calm, cooperative, appropriate for age. Pain: Complains of pain in right lower quadrant Pain does not radiate. Pain currently is 1 out of 10 on a pain scale. Quality of pain is described as aching, dull, Is continuous. Neuro: Level of Consciousness is awake, alert, obeys commands, Oriented to person, place, time, situation, Appropriate for age. Cardiovascular: Capillary refill < 3 seconds. Respiratory: Airway is patent Trachea midline Respiratory effort is even, unlabored, Respiratory pattern is regular, symmetrical. GI: Abdomen is round non-distended, Bowel sounds present X 4 quads. Abd is soft X 4 quads Abdomen is tender to palpation in right lower quadrant. : No signs and/or symptoms were reported regarding the genitourinary system. EENT: No signs and/or symptoms were reported regarding the EENT system. Derm: No signs and/or symptoms reported regarding the dermatologic system. Skin is intact, is healthy with good turgor, Skin is pink, warm \T\ dry. Musculoskeletal: No signs and/or symptoms reported regarding the musculoskeletal system. Circulation, motion, and sensation intact. Range of motion: intact in all extremities. 14:45 Reassessment: Patient appears in no apparent distress at this time. No changes from kc6 previously documented assessment. Patient and/or family updated on plan of care and expected duration. Pain level reassessed. Patient is alert, oriented x 3, equal unlabored respirations, skin warm/dry/pink. 15:45 Reassessment: Patient appears in no apparent distress at this time. No changes from kc6 previously documented assessment. Patient and/or family updated on plan of care and expected duration. Pain level reassessed. Patient is alert, oriented x 3, equal unlabored respirations, skin warm/dry/pink. 15:54 Reassessment: d/c pending completion of IV antibiotics. kc6 16:45 Reassessment: Patient appears in no apparent distress at this time. No changes from kc6 previously documented assessment. Patient and/or family updated on plan of care and expected duration. Pain level reassessed. Patient is alert, oriented x 3, equal unlabored respirations, skin warm/dry/pink. 17:45 Reassessment: Patient appears in no apparent distress at this time. No changes from kc6 previously documented assessment. Patient and/or family updated on plan of care and expected duration. Pain level reassessed. Patient is alert, oriented x 3, equal unlabored respirations, skin warm/dry/pink. Vital Signs: 13:39 BP 155 / 85; Pulse 90; Resp 17; Temp 98.5(O); Pulse Ox 98% on R/A; Weight 115.67 kg; ss Height 5 ft. 11 in. ; Pain 1/10; 15:10 BP 140 / 78; Pulse 85; Resp 18 S; Pulse Ox 100% on R/A; kc6 13:39 Body Mass Index 35.56 (115.67 kg, 180.34 cm) ss 13:39 Pain Scale: Adult ss ED Course: 13:23 Patient arrived in ED. im 13:27 Rob Ackerman MD is Attending Physician. doug 13:30 Rosamaria Ponce, JUNA is Primary Nurse. kc6 13:47 Triage completed. ss 13:47 Arm band placed on left wrist. ss 14:03 Inserted saline lock: 20 gauge in left forearm, using aseptic technique. Blood kc6 collected. Flushed with 10 mL NS. 14:05 Patient has correct armband on for positive identification. Placed in gown. Bed in low kc6 position. Call light in reach. Side rails up X 1. Adult w/ patient. Pulse ox on. NIBP on. Door closed. Noise minimized. Lights dimmed. Pillow given. 14:27 XRAY Chest (1 view) In Process Unspecified. EDMS 14:40 CT Abd/Pelvis - IV Contrast Only In Process Unspecified. EDMS 15:42 Drew Salvador MD is Referral Physician. [facility] 18:09 No provider procedures requiring assistance completed. IV discontinued, intact, kc6 bleeding controlled, No redness/swelling at site. Pressure dressing applied. Administered Medications: 14:02 Drug: NS 0.9% IV 1000 ml IV at 1000 ml once; to be given as a bolus over 60 minutes kc6 Route: IV; Rate: 1000 ml; Site: left forearm; 15:54 Follow up: Response: No adverse reaction; IV Status: Completed infusion; IV Intake: kc6 1000ml 14:02 Drug: Famotidine IVP 20 mg IVP once; dilute with 10 mL 0.9% NaCl; give over 2 minutes kc6 Route: IVP; Site: left forearm; 15:11 Follow up: Response: No adverse reaction kc6 14:28 Not Given (Patient Refused): morphineor iv 2 mg IVP once over 4 mins kc6 14:28 Not Given (Patient Refused): morphineor iv 2 mg IVP once over 4 mins kc6 14:28 Not Given (Patient Refused): ondansetron 4 mg IVP once; over 2 minutes kc6 15:54 Drug: Rocephin IV 2 grams IV at per protocol once; Given slow IV push per pharmarcy kc6 instructions Route: IV; Rate: per protocol; Site: left forearm; 16:46 Follow up: Response: No adverse reaction; IV Status: Completed infusion; IV Intake: [id number] 16:46 Drug: metroNIDAZOLE IVPB 500 mg 100 ml IVPB at 200 ml/hr once over 30 mins Volume: 100 kc6 ml; Route: IVPB; Rate: 200 ml/hr; Infused Over: 30 mins; Site: left forearm; 18:07 Follow up: Response: No adverse reaction; IV Status: Completed infusion; IV Intake: kc6 100ml 17:04 Drug: Ciprofloxacin IVPB 400 mg 200 ml IVPB once over 60 mins Volume: 200 ml; Route: kc6 IVPB; Infused Over: 60 mins; Site: left forearm; 18:08 Follow up: Response: No adverse reaction; IV Status: Completed infusion; IV Intake: kc6 200ml Medication: 18:09 VIS not applicable for this client. kc6 Intake: 15:54 IV: 1000ml; Total: 1000ml. kc6 16:46 IV: 50ml; Total: 1050ml. kc6 18:07 IV: 100ml; Total: 1150ml. kc6 18:08 IV: 200ml; Total: 1350ml. kc6 Outcome: 15:43 Discharge ordered by . doug 18:09 Discharged to home ambulatory, with significant other, kc6 18:09 Condition: improved 18:09 Discharge instructions given to patient, significant other, Instructed on discharge instructions, follow up and referral plans. medication usage, Demonstrated understanding of instructions, follow-up care, medications, Prescriptions given X 4, 18:09 Patient left the ED. kc6 Signatures: Dispatcher [employer] EDMS Rob Ackerman MD MD cha Blanchard, Shelby, RN RN Rosamaria Manrique RN RN kcRaysa Ashby
[2024-12-12] MEDS ORDERED: METRONIDAZOLE 500mg IVPB 500 MG/100 ML BAG IV ONE (15:46)
[2024-12-12] MEDS ORDERED: NA CHLORIDE 0.9% 50 ML ONE (15:46)
[2024-12-12] MEDS ORDERED: CIPROFLOXACIN 400mg IV 400 MG/200 ML BAG IV ONE (15:46)
[2024-12-12] MEDS ORDERED: CEFTRIAXONE 2000 MG/VIAL ONE (15:46)
[2024-12-13 03:09] VITALS: BP 140/78; TEMP 98.5; O2SAT 100
== END 2024-12-12 18:09 | disposition home or self-care (01) ==
LOC: ER 13:21
DX: K57.32 Diverticulitis of large intestine without perforation or abscess without bleeding (principal); Z85.46 Personal history of malignant neoplasm of prostate
CPT/HCPCS: 96365; 96367; 96361; 96368; 85025; 81001; 80048; 36415; 83735; 85610; 80076; 84484; 83690; 83880; 74177; 71045; 96375; 99284; Q9967; J0696; J0744; J7030; J2405

== ENCOUNTER 2024-12-30 07:51 | Day surgery (SDC) | payer OTHER ==
[2024-12-30] MEDS: Ringers Lactate 1,000 ML IV ONE (08:20)
[2024-12-30] MEDS ORDERED: propofoL 200 MG/20 ML VIAL IV ONE (09:37)
[2024-12-30 11:32] VITALS: BP 135/85; TEMP 98.2; O2SAT 98
== END 2024-12-30 10:23 | disposition home or self-care (01) ==
LOC: OR 07:51
PROVIDERS: ATTEND Surgery
PROC: 0DBH8ZX Excision of Cecum, Via Natural or Artificial Opening Endoscopic, Diagnostic (ICD-10-PCS; principal; 2024-12-30 09:15)
DX: K57.30 Diverticulosis of large intestine without perforation or abscess without bleeding (principal); R10.31 Right lower quadrant pain; R10.9 Unspecified abdominal pain; R14.3 Flatulence; K64.4 Residual hemorrhoidal skin tags; K64.8 Other hemorrhoids; D12.0 Benign neoplasm of cecum
CPT/HCPCS: 88305; 45384; J2704; J7120